=== PATIENT | male | born 1980 | race Caucasian/White ===

== ENCOUNTER 2019-03-31 17:21 | Inpatient (IN) | payer OTHER ==
[2019-03-31 18:17] VITALS: BMI 29.1
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
[2019-03-31] MEDS ORDERED: cloNIDine HCL 0.1 MG TABLET PO PRN (19:40)
[2019-03-31] MEDS ORDERED: METHADONE HCL 10 MG TABLET (FOR DETOX USE ONLY) PO ONE ×2 (19:41→23:00)
[2019-03-31] MEDS ORDERED: METHADONE (DETOX) 10 MG, METHADONE (DETOX) 5 MG PO ONE ×2 (19:42→23:00)
[2019-03-31] MEDS ORDERED: MENTHOL/PHENOL 1 EACH UD MM PRN (19:43)
[2019-03-31] MEDS ORDERED: MAGNESIUM HYDROX 2400MG/30ML ORAL SUSPENSION 30 ML CUP PO PRN (19:43)
[2019-03-31] MEDS ORDERED: ACETAMINOPHEN 325 MG TABLET (FP) PO PRN ×2 (19:43)
[2019-03-31] MEDS ORDERED: MAGNESIUM CITRATE 300 ML BOTTLE PO PRN (19:43)
[2019-03-31] MEDS ORDERED: BISMUTH SUBSALICYLATE 524 MG/30 ML UD PO PRN (19:43)
[2019-03-31] MEDS ORDERED: METHADONE HCL 5 MG TABLET (FOR DETOX USE ONLY) ONE ×2 (20:44→22:28)
[2019-03-31] MEDS ORDERED: METHADONE HCL 10 MG TABLET (FOR DETOX USE ONLY) ONE ×2 (20:45→22:29)
[2019-03-31] MEDS: METHOCARBAMOL 500 MG TABLET PO PRN (20:54)
[2019-03-31] MEDS: diazePAM 5 MG TABLET PO PRN (20:54)
[2019-03-31] MEDS: diazePAM 5 MG TABLET PO SCH (22:32)
[2019-03-31] MEDS: THIAMINE HCL 100 MG TABLET (FP) PO SCH (22:33)
[2019-03-31] MEDS: MELATONIN 5 MG TABLETS PO PRN (22:33)
[2019-04-01 00:46] LABS: PH,URINE 5.5 (5.0-8.0); URINE APPEARANCE CLEAR; URINE BILIRUBIN NEGATIVE (NEGATIVE); URINE COLOR YELLOW; URINE GLUCOSE (UA) NEGATIVE (NEGATIVE); URINE KETONE TRACE (NEGATIVE); URINE LEUK ESTERASE NEGATIVE (NEGATIVE); URINE NITRITE NEGATIVE (NEGATIVE); URINE PROTEIN NEGATIVE (NEGATIVE); URINE UROBILINOGEN 0.2 mg/dL (0.2-1.0)
[2019-04-01] MEDS: diazePAM 5 MG TABLET PO SCH ×3 (05:40→22:06)
[2019-04-01] MEDS ORDERED: METHADONE HCL 5 MG TABLET (FOR DETOX USE ONLY) ONE (08:47)
[2019-04-01] MEDS ORDERED: METHADONE HCL 10 MG TABLET (FOR DETOX USE ONLY) ONE (08:48)
[2019-04-01] MEDS ORDERED: METHADONE (DETOX) 20 MG, METHADONE (DETOX) 5 MG PO ONE (10:00)
[2019-04-01] MEDS ORDERED: METHADONE HCL 10 MG TABLET (FOR DETOX USE ONLY) PO ONE (10:00)
[2019-04-01] MEDS: PRENATAL VITAMINS W/ FOLIC ACID TABLET (FP) PO SCH (10:06)
[2019-04-01 10:21] LABS: ALBUMIN 3.9 g/dl (3.4-5.0); ALK PHOS 66 U/L (45-117); ANION GAP 6 MMOL/L (8-16); BILIRUBIN,TOTAL 0.6 mg/dL (0.2-1); BLOOD UREA NITROGEN 9 mg/dL (7-18); CALCIUM 9.1 mg/dL (8.5-10.1); CHLORIDE 104 mmol/L (98-107); CO2 30 mmol/L (21-32); CREATININE 0.9 mg/dL (0.55-1.3); GLUCOSE,RANDOM 89 mg/dL (74-106); POTASSIUM 3.8 mmol/L (3.5-5.1); SGOT/AST 10 U/L (15-37); SGPT/ALT 19 U/L (13-61); SODIUM 140 mmol/L (136-145)
[2019-04-01 10:26] LABS: HEMATOCRIT 38.9 % (35.4-49); HEMOGLOBIN 13.6 GM/dL (11.7-16.9); MCH 29.9 pg (25.7-33.7); MEAN CELL VOLUME 85.5 fl (80-96); MEAN PLT VOLUME 8.8 fl (7.5-11.1); PLATELET COUNT 352 K/MM3 (134-434); RBC 4.55 M/mm3 (4.00-5.60); RDW 12.9 % (11.9-15.9); WHITE BLOOD COUNT 8.4 K/mm3 (4.0-10.0)
[2019-04-01] MEDS ORDERED: ONDANSETRON *ODT* 4 MG TABLET SL PRN (10:34)
[2019-04-01] MEDS: diazePAM 5 MG TABLET PO PRN ×2 (10:54→15:44)
[2019-04-01] MEDS: METHOCARBAMOL 500 MG TABLET PO PRN ×2 (10:54→22:06)
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
--- NOTE | 2019-04-01 12:56 | EKG ---
Test Reason : Blood Pressure : / mmHG Vent. Rate : 080 BPM Atrial Rate : 080 BPM P-R Int : 162 ms QRS Dur : 104 ms QT Int : 384 ms P-R-T Axes : 028 087 038 degrees QTc Int : 442 ms NORMAL SINUS RHYTHM NONSPECIFIC T WAVE ABNORMALITY ABNORMAL ECG NO PREVIOUS ECGS AVAILABLE Confirmed by PATRICK WEBBER, ALEKSANDER ([id number]) on 04/01/2019 12:55:56 PM Referred By: LUNA Confirmed By:ALEKSANDER NGUYEN MD
--- NOTE | 2019-04-01 14:37 | PN ---
S CIWA - CIWA Score Nausea/Vomitin Muscle Tremors: None Anxiety: 4-Mod. Anxious/Guarded Agitation: 2 Paroxysmal Sweats: No Perspiration Orientation: 0-Oriented Tacttile Disturbances: 2-Mild Itch/Numbness/Burn Auditory Disturbances: 0-None Visual Disturbances: 3-Moderate Sensitivity Headache: 0-None Present CIWA-Ar Total Score: 14 BHS COWS - Scale Resting Pulse: 1= [place] 81-100 Sweatin= No chills or Flushing Restless Observation: 1= Difficult to Sit Still Pupil Size: 0= Normal to Room Light Bone or Joint Aches: 2= Severe Diffuse Aches Runny Nose/ Eye Tearin= None GI Upset > 30mins: 2= Nausea/Diarrhea Tremor Observation of Outstretched Hands: 0= None Yawning Observation: 1= 1-2x During Session Anxiety or Irritability: 2=Irritable/Anxious Goose Flesh Skin: 3=Piloerection COWS Score: 12 S Progress Note (SOAP) Subjective: Body Aches, Nausea, Interrupted Sleep, Fatigue, Diarrhea. Objective: PATIENT A & O X 3, OBSERVED AMBULATING ON UNIT UNASSISTED. IN NO ACUTE DISTRESS. 04/01/19 14:35 Vital Signs Temperature 98.4 F 04/01/19 13:06 Pulse Rate 100 H 04/01/19 13:06 Respiratory Rate 18 04/01/19 13:06 Blood Pressure 124/87 04/01/19 13:06 O2 Sat by Pulse Oximetry (%) Laboratory Tests 03/31/19 04/01/19 04/01/19 23:10 07:00 07:00 WBC 8.4 RBC 4.55 Hgb 13.6 Hct 38.9 MCV 85.5 MCH 29.9 MCHC 35.0 RDW 12.9 Plt Count 352 MPV 8.8 Sodium 140 Potassium 3.8 Chloride 104 Carbon Dioxide 30 Anion Gap 6 L BUN 9 Creatinine 0.9 Creat Clearance w eGFR 93.94 Random Glucose 89 Calcium 9.1 Total Bilirubin 0.6 AST 10 L ALT 19 Alkaline Phosphatase 66 Total Protein 7.0 Albumin 3.9 Urine Color Yellow Urine Appearance Clear Urine pH 5.5 Ur Specific [place] 1.022 Urine Protein Negative Urine Glucose (UA) Negative Urine Ketones Trace H Urine Blood Negative Urine Nitrite Negative Urine Bilirubin Negative Urine Urobilinogen 0.2 Ur Leukocyte Esterase Negative LABS NOTED. RPR RESULT PENDING. Assessment: 04/01/19 14:36 WITHDRAWAL SYMPTOMS. Plan: CONTINUE DETOX. INCREASE DAILY PO FLUID / WATER INTAKE. PRN PEPTO-BISMOL PO FOR DIARRHEA. PRN ZOFRAN SL FOR NAUSEA.
[2019-04-01] MEDS: THIAMINE HCL 100 MG TABLET (FP) PO SCH (22:06)
[2019-04-01] MEDS: MELATONIN 5 MG TABLETS PO PRN (22:06)
[2019-04-02] MEDS ORDERED: METHADONE HCL 10 MG TABLET (FOR DETOX USE ONLY) PO ONE (10:00)
[2019-04-02] MEDS: PRENATAL VITAMINS W/ FOLIC ACID TABLET (FP) PO SCH (10:11)
[2019-04-02] MEDS: diazePAM 5 MG TABLET PO SCH ×2 (10:11→22:01)
[2019-04-02] MEDS: METHOCARBAMOL 500 MG TABLET PO PRN ×2 (10:13→17:45)
--- NOTE | 2019-04-02 12:48 | PN ---
S CIWA - CIWA Score Nausea/Vomitin Muscle Tremors: 3 Anxiety: 3 Agitation: 0-Normal Activity Paroxysmal Sweats: No Perspiration Orientation: 0-Oriented Tacttile Disturbances: 2-Mild Itch/Numbness/Burn Auditory Disturbances: 0-None Visual Disturbances: 2-Mild Sensitivity Headache: 0-None Present CIWA-Ar Total Score: 13 BHS COWS - Scale Resting Pulse: 0= [place] 80 or Below Sweatin= Chills/Flushing Restless Observation: 1= Difficult to Sit Still Pupil Size: 0= Normal to Room Light Bone or Joint Aches: 2= Severe Diffuse Aches Runny Nose/ Eye Tearin= None GI Upset > 30mins: 2= Nausea/Diarrhea Tremor Observation of Outstretched Hands: 2= Slight Tremor Visible Yawning Observation: 1= 1-2x During Session Anxiety or Irritability: 2=Irritable/Anxious Goose Flesh Skin: 0=Smooth Skin COWS Score: 11 S Progress Note (SOAP) Subjective: Body Aches, Nausea, Tremors, Anxious. Objective: PATIENT A & O X 3, OBSERVED AMBULATING ON UNIT UNASSISTED. IN NO ACUTE DISTRESS. 04/02/19 12:46 Vital Signs Temperature 98.1 F 04/02/19 10:01 Pulse Rate 79 04/02/19 10:01 Respiratory Rate 18 04/02/19 10:01 Blood Pressure 145/79 04/02/19 10:01 O2 Sat by Pulse Oximetry (%) Laboratory Tests 03/31/19 04/01/19 04/01/19 23:10 07:00 07:00 WBC 8.4 RBC 4.55 Hgb 13.6 Hct 38.9 MCV 85.5 MCH 29.9 MCHC 35.0 RDW 12.9 Plt Count 352 MPV 8.8 Sodium 140 Potassium 3.8 Chloride 104 Carbon Dioxide 30 Anion Gap 6 L BUN 9 Creatinine 0.9 Creat Clearance w eGFR 93.94 Random Glucose 89 Calcium 9.1 Total Bilirubin 0.6 AST 10 L ALT 19 Alkaline Phosphatase 66 Total Protein 7.0 Albumin 3.9 Urine Color Yellow Urine Appearance Clear Urine pH 5.5 Ur Specific [place] 1.022 Urine Protein Negative Urine Glucose (UA) Negative Urine Ketones Trace H Urine Blood Negative Urine Nitrite Negative Urine Bilirubin Negative Urine Urobilinogen 0.2 Ur Leukocyte Esterase Negative RPR Titer 04/01/19 07:00 WBC RBC Hgb Hct MCV MCH MCHC RDW Plt Count MPV Sodium Potassium Chloride Carbon Dioxide Anion Gap BUN Creatinine Creat Clearance w eGFR Random Glucose Calcium Total Bilirubin AST ALT Alkaline Phosphatase Total Protein Albumin Urine Color Urine Appearance Urine pH Ur Specific [place] Urine Protein Urine Glucose (UA) Urine Ketones Urine Blood Urine Nitrite Urine Bilirubin Urine Urobilinogen Ur Leukocyte Esterase RPR Titer Nonreactive LABS NOTED. Assessment: 04/02/19 12:47 WITHDRAWAL SYMPTOMS. Plan: CONTINUE DETOX. PRN ZOFRAN SL FOR NAUSEA.
[2019-04-02] MEDS: diazePAM 5 MG TABLET PO PRN (17:45)
[2019-04-02] MEDS: THIAMINE HCL 100 MG TABLET (FP) PO SCH (22:01)
[2019-04-02] MEDS: MELATONIN 5 MG TABLETS PO PRN (22:01)
[2019-04-02] MEDS: IBUPROFEN 400 MG TABLET (FP) PO PRN (22:05)
[2019-04-02] MEDS: MAG HYDROX/AL HYDROX/SIMETH 30 ML UNIT-DOSE CUP PO PRN (23:19)
[2019-04-03] MEDS ORDERED: diazePAM 5 MG TABLET PO SCH (06:00)
[2019-04-03] MEDS ORDERED: METHADONE HCL 10 MG TABLET (FOR DETOX USE ONLY) PO ONE (10:00)
[2019-04-03] MEDS: METHOCARBAMOL 500 MG TABLET PO PRN ×2 (10:19→22:22)
[2019-04-03] MEDS: PRENATAL VITAMINS W/ FOLIC ACID TABLET (FP) PO SCH (10:19)
[2019-04-03] MEDS: diazePAM 5 MG TABLET PO PRN ×2 (10:20→14:52)
[2019-04-03] MEDS ORDERED: METHADONE HCL 5 MG TABLET (FOR DETOX USE ONLY) PO ONE (10:40)
[2019-04-03] MEDS: IBUPROFEN 400 MG TABLET (FP) PO PRN (10:47)
--- NOTE | 2019-04-03 17:20 | PN ---
S CIWA - CIWA Score Nausea/Vomitin Muscle Tremors: 2 Anxiety: 3 Agitation: 0-Normal Activity Paroxysmal Sweats: No Perspiration Orientation: 0-Oriented Tacttile Disturbances: 0-None Auditory Disturbances: 2-Mild Harshness/Frighten Visual Disturbances: 2-Mild Sensitivity Headache: 0-None Present CIWA-Ar Total Score: 11 BHS COWS - Scale Resting Pulse: 1= [place] 81-100 Sweatin= No chills or Flushing Restless Observation: 1= Difficult to Sit Still Pupil Size: 0= Normal to Room Light Bone or Joint Aches: 0= None Runny Nose/ Eye Tearin= None GI Upset > 30mins: 2= Nausea/Diarrhea Tremor Observation of Outstretched Hands: 2= Slight Tremor Visible Yawning Observation: 1= 1-2x During Session Anxiety or Irritability: 2=Irritable/Anxious Goose Flesh Skin: 0=Smooth Skin COWS Score: 9 BHS Progress Note (SOAP) Subjective: Body Aches, Nausea (Mild), Tremors, Anxious. Patient Reports Mild Improvement in Current Withdrawal / Detox Symptoms, but that the Symptoms still persist. Objective: PATIENT A & O X 3, OBSERVED AMBULATING ON UNIT UNASSISTED. IN NO ACUTE DISTRESS. 04/03/19 17:22 Vital Signs Temperature 98.1 F 04/03/19 14:21 Pulse Rate 85 04/03/19 14:21 Respiratory Rate 18 04/03/19 14:21 Blood Pressure 130/81 04/03/19 14:21 O2 Sat by Pulse Oximetry (%) Laboratory Tests 03/31/19 04/01/19 04/01/19 23:10 07:00 07:00 WBC 8.4 RBC 4.55 Hgb 13.6 Hct 38.9 MCV 85.5 MCH 29.9 MCHC 35.0 RDW 12.9 Plt Count 352 MPV 8.8 Sodium 140 Potassium 3.8 Chloride 104 Carbon Dioxide 30 Anion Gap 6 L BUN 9 Creatinine 0.9 Creat Clearance w eGFR 93.94 Random Glucose 89 Calcium 9.1 Total Bilirubin 0.6 AST 10 L ALT 19 Alkaline Phosphatase 66 Total Protein 7.0 Albumin 3.9 Urine Color Yellow Urine Appearance Clear Urine pH 5.5 Ur Specific [place] 1.022 Urine Protein Negative Urine Glucose (UA) Negative Urine Ketones Trace H Urine Blood Negative Urine Nitrite Negative Urine Bilirubin Negative Urine Urobilinogen 0.2 Ur Leukocyte Esterase Negative RPR Titer 04/01/19 07:00 WBC RBC Hgb Hct MCV MCH MCHC RDW Plt Count MPV Sodium Potassium Chloride Carbon Dioxide Anion Gap BUN Creatinine Creat Clearance w eGFR Random Glucose Calcium Total Bilirubin AST ALT Alkaline Phosphatase Total Protein Albumin Urine Color Urine Appearance Urine pH Ur Specific [place] Urine Protein Urine Glucose (UA) Urine Ketones Urine Blood Urine Nitrite Urine Bilirubin Urine Urobilinogen Ur Leukocyte Esterase RPR Titer Nonreactive LABS NOTED. Assessment: 04/03/19 17:22 WITHDRAWAL SYMPTOMS. Plan: CONTINUE DETOX. PRN ZOFRAN SL FOR NAUSEA.
[2019-04-03] MEDS: THIAMINE HCL 100 MG TABLET (FP) PO SCH (22:11)
[2019-04-03] MEDS: MELATONIN 5 MG TABLETS PO PRN (22:14)
[2019-04-03] MEDS: hydrOXYzine PAMOATE 50 MG CAPSULE (FP) PO PRN (22:14)
[2019-04-03] MEDS: MAG HYDROX/AL HYDROX/SIMETH 30 ML UNIT-DOSE CUP PO PRN (23:18)
[2019-04-04] MEDS ORDERED: METHADONE HCL 5 MG TABLET (FOR DETOX USE ONLY) PO ONE (06:00)
[2019-04-04] MEDS: PRENATAL VITAMINS W/ FOLIC ACID TABLET (FP) PO SCH (09:57)
[2019-04-04] MEDS ORDERED: METHADONE HCL 10 MG TABLET PO ONE (10:22)
[2019-04-04] MEDS ORDERED: METHADONE HCL 10 MG TABLET (FOR DETOX USE ONLY) PO ONE (10:45)
[2019-04-04] MEDS: METHOCARBAMOL 500 MG TABLET PO PRN ×2 (10:45→22:11)
--- NOTE | 2019-04-04 12:48 | PN ---
BHS COWS - Scale Resting Pulse: 0= [place] 80 or Below Sweatin= Chills/Flushing Restless Observation: 1= Difficult to Sit Still Pupil Size: 0= Normal to Room Light Bone or Joint Aches: 2= Severe Diffuse Aches Runny Nose/ Eye Tearin= None GI Upset > 30mins: 0= None Tremor Observation of Outstretched Hands: 2= Slight Tremor Visible Yawning Observation: 1= 1-2x During Session Anxiety or Irritability: 1=Feels Anxious/Irritable Goose Flesh Skin: 0=Smooth Skin COWS Score: 8 BHS Progress Note (SOAP) Subjective: c/o sweats, shakes, and muscle pain Objective: 04/04/19 12:47 Vital Signs 04/04/19 04/04/19 06:05 09:50 Temperature 97.7 F 98.9 F Pulse Rate 73 77 Respiratory 18 18 Rate Blood Pressure 109/64 118/67 Vital signs noted. Assessment: AOX3, in no respiratory distress full ROM withdrawal symptoms persists. Plan: Continue detox increase fluids
[2019-04-04] MEDS: THIAMINE HCL 100 MG TABLET (FP) PO SCH (22:11)
[2019-04-04] MEDS: hydrOXYzine PAMOATE 50 MG CAPSULE (FP) PO PRN (22:11)
[2019-04-04] MEDS: MELATONIN 5 MG TABLETS PO PRN (22:11)
[2019-04-04 22:21] VITALS: BP 136/75; PULSE 97; TEMP 99.5
[2019-04-05] MEDS ORDERED: METHADONE HCL 5 MG TABLET (FOR DETOX USE ONLY) PO ONE (06:00)
== END 2019-04-04 23:59 | disposition other institution (70) | DRG 773 ==
LOC: YASAS 17:21 → Y6N 20:26
PROVIDERS: ADMIT Surgery; ATTEND Surgery
PROC: HZ2ZZZZ Detoxification Services for Substance Abuse Treatment (ICD-10-PCS; principal; 2019-03-31)
DX: F11.23 Opioid dependence with withdrawal (principal); F13.230 Sedative, hypnotic or anxiolytic dependence with withdrawal, uncomplicated; F19.24 Other psychoactive substance dependence with psychoactive substance-induced mood disorder; F19.282 Other psychoactive substance dependence with psychoactive substance-induced sleep disorder; E78.5 Hyperlipidemia, unspecified; Z86.69 Personal history of other diseases of the nervous system and sense organs; Z94.5 Skin transplant status
CPT/HCPCS: 36415; 80053; 81003; 85027; 86593; 93005; 93010; Q0162

== ENCOUNTER 2019-04-04 23:56 | Inpatient (IN) | payer OTHER ==
[2019-04-05] MEDS ORDERED: P-EPHED 60MG/TRIPROLIDI 2.5MG TABLET PO PRN (00:40)
[2019-04-05] MEDS ORDERED: MAGNESIUM CITRATE 300 ML BOTTLE PO PRN (00:40)
[2019-04-05] MEDS ORDERED: MENTHOL/PHENOL 1 EACH UD MM PRN (00:40)
[2019-04-05] MEDS ORDERED: LOPERAMIDE HCL 2 MG CAPSULE PO PRN (00:40)
[2019-04-05] MEDS ORDERED: guaiFENesin 200 MG/10 ML 10 ML UNIT-DOSE CUPS PO PRN (00:40)
[2019-04-05] MEDS ORDERED: MAGNESIUM HYDROX 2400MG/30ML ORAL SUSPENSION 30 ML CUP PO PRN (00:40)
[2019-04-05] MEDS ORDERED: NICOTINE POLACRILEX 2 MG GUM BUC PRN (00:40)
[2019-04-05] MEDS ORDERED: MAG HYDROX/AL HYDROX/SIMETH 30 ML UNIT-DOSE CUP PO PRN (00:40)
--- NOTE | 2019-04-05 00:40 | HP ---
JUNI WEBBER Rehab Assess/Revision - Admission History Admitted to Rehab from: [facility] Date of Admission to Rehab: 04/05/2019 - Findings Detox History & Physical reviewed: Yes Concur with findings: Yes Comments/Additional Findings: S/P DETOX FOR BENZO AND OPI DEP. Inpatient Rehab Admission - Rehab Decision to Admit Inpatient rehab admission?: Yes - Initial Determination Are CD services needed?: Yes Free of communicable disease: Yes Not in need of hospitalization: Yes - Rehab Admission Criteria Previous failed treatment: Yes Poor recovery environment: Yes Comorbidities: Yes Lacks judgement: No Patient is meeting Inpatient Rehab admission criteria:: Yes
[2019-04-05 00:58] VITALS: BMI 29.1
[2019-04-05] MEDS ORDERED: NICOTINE 14 MG/24 HOURS TOPICAL PATCH TD SCH (10:00)
[2019-04-05] MEDS: PRENATAL VITAMINS W/ FOLIC ACID TABLET (FP) PO SCH (11:50)
[2019-04-05] MEDS: hydrOXYzine PAMOATE 25 MG CAPSULE (FP) PO PRN (14:17)
[2019-04-05] MEDS: IBUPROFEN 400 MG TABLET (FP) PO PRN ×2 (14:18→21:38)
[2019-04-05] MEDS: THIAMINE HCL 100 MG TABLET (FP) PO SCH (21:36)
[2019-04-05] MEDS: MELATONIN 5 MG TABLETS PO PRN (21:37)
[2019-04-06] MEDS: hydrOXYzine PAMOATE 25 MG CAPSULE (FP) PO PRN ×2 (06:33→10:40)
[2019-04-06] MEDS: IBUPROFEN 400 MG TABLET (FP) PO PRN ×2 (06:33→21:26)
[2019-04-06] MEDS: PRENATAL VITAMINS W/ FOLIC ACID TABLET (FP) PO SCH (10:16)
[2019-04-06] MEDS: THIAMINE HCL 100 MG TABLET (FP) PO SCH (21:25)
[2019-04-06] MEDS: MELATONIN 5 MG TABLETS PO PRN (21:25)
[2019-04-07] MEDS: IBUPROFEN 400 MG TABLET (FP) PO PRN (07:01)
[2019-04-07] MEDS: hydrOXYzine PAMOATE 25 MG CAPSULE (FP) PO PRN ×2 (07:01→21:22)
[2019-04-07] MEDS: PRENATAL VITAMINS W/ FOLIC ACID TABLET (FP) PO SCH (10:28)
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
[2019-04-07] MEDS ORDERED: BISACODYL 5 MG TABLET.DR (FP) PO ONE (18:30)
[2019-04-07] MEDS: ACETAMINOPHEN 325 MG TABLET (FP) PO PRN (20:31)
[2019-04-07] MEDS: THIAMINE HCL 100 MG TABLET (FP) PO SCH (21:22)
[2019-04-07] MEDS: MELATONIN 5 MG TABLETS PO PRN (21:22)
[2019-04-08] MEDS: ACETAMINOPHEN 325 MG TABLET (FP) PO PRN ×2 (06:22→15:38)
[2019-04-08] MEDS: PRENATAL VITAMINS W/ FOLIC ACID TABLET (FP) PO SCH (09:52)
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
[2019-04-08] MEDS ORDERED: LORazepam 2 MG/ML SDV VIAL ONE (15:53)
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
[2019-04-08] MEDS: THIAMINE HCL 100 MG TABLET (FP) PO SCH (21:34)
[2019-04-09] MEDS: MELATONIN 5 MG TABLETS PO PRN (00:04)
[2019-04-09] MEDS: ACETAMINOPHEN 325 MG TABLET (FP) PO PRN (06:15)
[2019-04-09] MEDS: PRENATAL VITAMINS W/ FOLIC ACID TABLET (FP) PO SCH (10:19)
[2019-04-09] MEDS ORDERED: METHOCARBAMOL 500 MG TABLET PO PRN (10:25)
[2019-04-09] MEDS ORDERED: IBUPROFEN 400 MG TABLET (FP) PO PRN (10:26)
[2019-04-09] MEDS ORDERED: cloNIDine HCL 0.1 MG TABLET PO ONE ×2 (10:29→12:43)
--- NOTE | 2019-04-09 10:58 | PN ---
[facility] Progress Note (SOAP) Subjective: PT RETURNED FROM THE ER LAST NIGHT. PT C/O JOINT/MUSCLE ACHES/PAIN AND SPASMS "DUE TO SHAKING OF YESTERDAY AND WITHDRAWAL SX. I FEEL SORE ". REPORTS TYLENOL DID NOT HELP "WHEN THEY GAVE IT TO ME". PT REPORTS THE LAST THING HE REMEMBERS BEFORE SYNCOPAL EPISODE WAS HIS HAND REACHING OUT TO THE BATHROOM DOOR. PT REPORTS CHRONIC SLEEPING DISORDER AND HAS EXPERIENCED SIMILAR EPISODES 4 TIMES. PT REPORTS HAS A LOT IN HIS MIND AND THINKS TOO MUCH SO DOES NOT SLEEP WELL FOR DAYS IN A ROW. PT REPORTS HE HAS NO CURRENT PCP/MENTAL HEALTH PROVIDER ALTHOUGH HAD ONE IN THE PAST AND WILL GET BACK TO ONE AFTER LEAVING HERE. DISCUSSED WITH PT THE NEED TO BE CONNECTED TO A PCP FOR MEDICAL MANAGEMENT WHEN NEEDED. Objective: 04/09/19 11:01 Vital Signs 04/09/19 04/09/19 04/09/19 03:30 07:01 08:30 Temperature 97.9 F 97.8 F Pulse Rate 104 H 95 H Respiratory 18 18 18 Rate Blood Pressure 141/84 126/72 Laboratory Tests 04/08/19 16:07 POC Glucometer 135 FASTING BGM DAY 1 ABOVE. HEAD:NORMOCEPHALIC,NO PAIN,SWELLING,REDNESS OR BRUISES. KARL,EOMI SKIN:WNL-NO BRUISE, SWELLING OR RASH. RIGHT KNEE WITH OLD HEALED SCAR. Assessment: 04/09/19 11:01 S/P ER EVALUATION FOR SYNCOPAL EPISODE WITHDRAWAL SX CHRONIC INSOMNIA Plan: INCREASE PO FLUIDS ROBAXIN 500 MG PO Q8H PRN FOR MUSCLE SPASMS MOTRIN 400 MG PO Q6H PRN FOR PAIN INCREASE VISTARIL 50 MG PO Q4H PRN FOR ANXIETY/AGITATION PSYCH F/U FOR INSOMNIA MANAGEMENT PT WILL FOLLOW UP WITH A PRIMARY CARE PROVIDER/MENTAL HEALTH SERVICES AFTER DISCHARGE FROM REHAB.
[2019-04-09] MEDS ORDERED: hydrOXYzine PAMOATE 50 MG CAPSULE (FP) PO PRN (11:04)
[2019-04-09] MEDS ORDERED: LORazepam 2 MG/ML SDV VIAL IM ONE ×2 (12:52→12:53)
[2019-04-09 13:07] VITALS: BP 130/81; PULSE 105; TEMP 98
--- NOTE | 2019-04-09 13:28 | PN ---
[facility] Progress Note Note: 12:44 P.M NURSE SUDHA CALLED [facility] FORMER TO SEE PT SITTING ON THE CHAIR AT THE NURSING STATION WHO BEGAN TO SHAKE WITH WEAKNESS AND SYNCOPAL EPISODE. NURSING REPORTS PT WAS LOWERED TO THE FLOOR PER PROTOCOL. [facility] FORMER FOUND PATIENT ON THE FLOOR AND NURSING STAFF WITH PATIENT SOON AFTER CALL. PT WAS SEEN HAVING RAPID GENERALIZED BODY JERKING, MUSCLE/JOINT/FINGER CONTRACTIONS AND MOANING. PT HAD EYES CLOSED TIGHT- UNABLE TO ASSESS PUPILS FULLY BUT PT HAD OCULAR MOVEMENTS OF EYEBALLS. PT WAS EVALUATED AT THE COUNTS INCLUDE 234 BEDS AT THE [facility] ER YESTERDAY WITH SIMILAR EPISODE. PT REPORTED EARLIER THIS MORNING THAT HE'S HAD ABOUT 4 PREVIOUS SIMILAR EPISODES. PT IS NEW TO [facility]. Vital Signs 04/09/19 04/09/19 04/09/19 07:01 08:30 12:30 Temperature 97.9 F 97.8 F 98 F Pulse Rate 104 H 95 H 105 H Respiratory 18 18 17 Rate Blood Pressure 141/84 126/72 130/81 BLOOD SUGAR 166 MG/DL O2 4L NC PLAN:RAPID RESPONSE CALLED AND STAFF RESPONDED. ATIVAN 2MG I.M X 2 GIVEN AT 12:52 P.M AND 12:53 P.M TRANSFER PT VIA AMBULANCE TO [facility] FOR FURTHER EVALUATION AND TREATMENT. SPOKE TO DR. HANNAH AT THE ED.
[2019-04-09] MEDS ORDERED: cloNIDine HCL 0.1 MG TABLET PO SCH (22:00)
[2019-04-10] MEDS: THIAMINE HCL 100 MG TABLET (FP) PO SCH (00:39)
== END 2019-04-09 23:00 | disposition short-term general hospital (02) | DRG 772 ==
LOC: YASAS 23:56 → Y5N 04-05 00:04
PROVIDERS: ADMIT Neuromusculoskeletal Medicine & OMM; ATTEND Neuromusculoskeletal Medicine & OMM
PROC: HZ42ZZZ Group Counseling for Substance Abuse Treatment, Cognitive-Behavioral (ICD-10-PCS; principal; 2019-04-05)
DX: F11.20 Opioid dependence, uncomplicated (principal); F13.20 Sedative, hypnotic or anxiolytic dependence, uncomplicated; F19.282 Other psychoactive substance dependence with psychoactive substance-induced sleep disorder; R56.9 Unspecified convulsions; R55 Syncope and collapse; R52 Pain, unspecified; G47.00 Insomnia, unspecified; E78.5 Hyperlipidemia, unspecified; K92.1 Melena; K59.00 Constipation, unspecified
CPT/HCPCS: 82962; 87086

== ENCOUNTER 2019-04-08 16:46 | Emergency (ER) | payer BC, OTHER ==
[2019-04-08 16:57] VITALS: TEMP 99.2; BMI 31.3
--- NOTE | 2019-04-08 19:50 | PDOC ---
History of Present Illness - General Chief Complaint: Alcohol intoxication Stated Complaint: SEIZURE/Withdrawal Symptom Time Seen by Provider: 04/08/19 17:36 - History of Present Illness Initial Comments: 04/08/19 20:41 The patient is a 38 year old male with a history of HTN, heroin abuse, xanax abuse who presents from detox for evaluation of near-syncope. The patient reports a history of right flank pain for many months and noted that the pain was worse today. He notes that he had received tylenol for the patient and after was getting up from bed to go to the bathroom when he experienced a witnessed near-syncopal episode. He denies head trauma and states the he remembers the event. Per [facility], the patient was shaking at the time. The patient notes that he knows he was shaking. He otherwise denies headache, fevers, chills, SOB, chest pain, nausea, vomiting, abdominal pain, or changes with urination or bowel movements. Past History - Past Medical History Allergies/Adverse Reactions: Allergies Allergy/AdvReac Type Severity Reaction Status Date / Time No Known Allergies Allergy Verified 03/31/19 18:12 Home Medications: Ambulatory Orders Acetaminophen [Arthritis Pain Relief] 650 mg PO Q4H PRN 04/08/19 Eucalyptus/Menthol [Cough Drops] 1 each MM Q4H PRN 04/08/19 Guaifenesin [Robitussin] 10 ml PO Q6H PRN 04/08/19 Mag Hydrox/Al Hydrox/Simeth [Mylanta Oral Suspension -] 30 ml PO DAILY PRN 04/08 Magnesium Citrate [Citroma -] 300 ml PO Q48H PRN 04/08/19 Magnesium Hydrox 2400MG/30Ml [Milk of Magnesia -] 30 ml PO DAILY PRN 04/08/19 Melatonin 5 mg PO HS PRN 04/08/19 P-Ephed 60Mg/Triprolidi 2.5MG [Actifed -] 1 combo PO TID PRN 04/08/19 No122/Iron/Folic Acid [ Multi Tablet] 1 each PO DAILY 04/08/19 Thiamine HCl [B-1] 100 mg PO HS 04/08/19 hydrOXYzine PAMOATE [Vistaril -] 25 mg PO Q4H PRN 04/08/19 Anemia: No Asthma: No Cancer: No Cardiac Disorders: No CVA: No COPD: No CHF: No Dementia: No Diabetes: No GI Disorders: No Disorders: No HTN: Yes Hypercholesterolemia: No Kidney Stones: No Liver Disease: No Seizures: Yes (Xanax withdrawal seizure one year ago ) Thyroid Disease: No - Surgical History Abdominal Surgery: No Appendectomy: No Cardiac Surgery: No Cholecystectomy: No Lung Surgery: No Neurologic Surgery: No Orthopedic Surgery: No - Reproductive History Testicular Surgery: No - Suicide/Smoking/Psychosocial Hx Smoking History: Never smoked Have you smoked in the past 12 months: No Number of Cigarettes Smoked Daily: 0 Information on smoking cessation initiated: No 'Breaking Loose' booklet given: 03/31/19 Hx Alcohol Use: No Drug/Substance Use Hx: Yes (heroin xanax) Substance Use Type: Heroin, Opiates, Tranquilizers Hx Substance Use Treatment: No Review of Systems - Review of Systems Comments:: 04/08/19 20:44 Constitutional: No fevers, chills, fatigue, malaise HEENT: No Rhinorrhea, nasal congestion, visual changes Cardiovascular: Syncope No chest pain, palpitations, lightheadedness Respiratory: No Cough, SOB, Hemoptysis, Gastrointestinal: No Abdominal pain, Nausea, Vomiting, Constipation, Diarrhea, Melena Genitourinary: No Dysuria, Frequency, Urgency, Hesitancy, Hematuria, Flank pain Musculoskeletal: No Myalgia, arthralgia Skin: No rashes, itching, bruising, pallor Neurologic: Tremors No Headache, Dizziness, Numbness, Weakness, or Tingling Psychiatric: No Hallucinations. No SI or HI *Physical Exam - Vital Signs Last Vital Signs Temp Pulse Resp BP Pulse Ox 99.2 F 133 H 20 138/79 97 04/08/19 16:56 04/08/19 16:56 04/08/19 16:56 04/08/19 16:56 04/08/19 16:56 - Physical Exam Comments: 04/08/19 20:45 General Appearance: Nourished. No Apparent Distress HEENT: EOMI, CHELSEY. No Pharyngeal Erythema, Tonsillar Exudate, Tonsillar Erythema Neck: No Cervical Lymphadenopathy Respiratory/Chest: Lungs Clear, Normal Breath Sounds. No Crackles, Rales, Rhonchi, Wheezing Cardiovascular: Regular Rhythm, Tachycardic Rate. No Murmur, Gallops, Rubs Gastrointestinal/Abdominal: Normal Bowel Sounds, Soft. 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 Tremulous on Exam Heart Score/ECG Review #1 ECG reviewed & interpreted by me at: 20:47 04/08/19 20:47 Sinus Tachycardia No Acute ST Changes HR 109 QRS 90 QTc 463 ED Treatment Course - LABORATORY CBC & Chemistry Diagram: 04/08/19 20:15 04/08/19 20:15 Medical Decision Making - Medical Decision Making 04/08/19 20:48 The patient is a 38 year old male with a history of HTN, heroin abuse, xanax abuse who presents from detox for evaluation of near-syncope. Differential includes but is not limited to: ACS, Dehydration, Infectious, Metabolic Derangement. Given the patient's history and physical exam, we will obtain a cbc, cmp, troponin, ekg, chest plain film to evaluate further. We will treat with clonodine 0.1mg here in the Ed and continue to monitor and reassess. 04/08/19 22:01 CBC demonstrates a wbc to 16 which is non concerning at this time given the lack of associated symptoms. CMP, troponin are unremarkable. Chest plain film is unremarkable. The patient's vitals have improved and he appears clinically well on exam. We are comfortable discharging the patient back to [facility] [place] in stable condition. Patient and family made aware of impression and plan, return precautions discussed including but not limited to worsening pain or symptoms, fevers, or signs of infection, chest pain, respiratory distress, inability to tolerate oral intake, dehydration, syncope, or neurologic changes. The patient is to follow up with PMD as recommended within 1 week, follow up information provided and the patient will call for an appointment. The patient is to take medications as instructed for duration of time and continue with supportive care , avoid triggers and precipitants. Patient is safe for outpatient follow-up. *DC/Admit/Observation/Transfer Diagnosis at time of Disposition: Near syncope - Discharge Dispostion Disposition: HOME Condition at time of disposition: Stable - Referrals - Patient Instructions Printed Discharge Instructions: DI for Syncope in Adults (Fainting) Additional Instructions: 1) Please follow-up with your primary care doctor in the next 2-3 days. Please call tomorrow to schedule a follow up appointment. If you cannot follow up with your doctor within 1 week please return to the Emergency Department for any urgent issues. 2) Your laboratory / imaging results were normal here in the ER. 3) If you have any worsening of symptoms or any other concerns please return to the ER immediately. Return if worsening symptoms including fevers, headache, vomiting, visual or hearing disturbances, abdominal pain, chest pain, shortness of breath, syncope, dehydration, inability to take things by mouth/vomiting, altered mental status, or worsening concerning symptoms. 4) Please continue taking your home medications as directed. - Post Discharge Activity
[2019-04-08] MEDS ORDERED: cloNIDine HCL 0.1 MG TABLET PO ONE (20:14)
[2019-04-08] MEDS ORDERED: cloNIDine HCL 0.1 MG TABLET ONE (20:27)
[2019-04-08 20:43] LABS: BASO % 0.4 % (0-2.0); EOS % 1.5 % (0-4.5); HEMATOCRIT 42.6 % (35.4-49); HEMOGLOBIN 14.6 GM/dL (11.7-16.9); MCH 29.2 pg (25.7-33.7); MCHC 34.2 g/dl (32.0-35.9); MEAN CELL VOLUME 85.1 fl (80-96); MEAN PLT VOLUME 8.8 fl (7.5-11.1); MONO % 6.3 % (3.8-10.2); NEUT % 65.8 % (42.8-82.8); PLATELET COUNT 356 K/MM3 (134-434); RDW 12.9 % (11.9-15.9); WHITE BLOOD COUNT 16.8 K/mm3 (4.0-10.0)
[2019-04-08 21:02] LABS: ALBUMIN 4.2 g/dl (3.4-5.0); BILIRUBIN,TOTAL 0.4 mg/dL (0.2-1); CALCIUM 9.3 mg/dL (8.5-10.1); POTASSIUM 3.7 mmol/L (3.5-5.1)
--- NOTE | 2019-04-08 21:54 | PDOC ---
Documentation entered by Moe Will SCRIBE, acting as scribe for Stephanie Gómez DO. Stephanie Gómez DO: This documentation has been prepared by the Nicolette doll Matthew, SCRIBE, under my direction and personally reviewed by me in its entirety. I confirm that the documentation accurately reflects all work, treatment, procedures, and medical decision making performed by me. Attending Attestation - Resident Resident Name: Candelario Powell - ED Attending Attestation I have performed the following: I have examined & evaluated the patient, The case was reviewed & discussed with the resident, I agree w/resident's findings & plan - HPI HPI: 04/08/19 20:30 Patient is a 38 year old male with a significant past medical history of depresion, who presents to the ED with complaints of syncopal episode occurred just prior to ED arrival. Patient reports experiencing chronic right flank pain , that he states became more intense this afternoon prompting him to take tylenol. He reports getting up to use the bathroom shortly afterwards and experienced a syncopal episode. As per NH staff patient was found on the floor shaking, prompting them to send the patient into the ED for further evaluation of possible seizure. Denies chest pain, Sob. Denies nausea, vomiting. Denies fevers, chills. Denies constipation, diarrhea. Denies dysuria, hematuria. Denies contact with sick individuals, out of state travelling. Denies any other symptoms. Allergies: NKDA. Social history: From [facility]. Current heroin, and xanax abuse. No alcohol use. No smoking. Surgical history: None PMD: None - Physicial Exam PE: 04/08/19 20:30 Agree with residents Physical Exam. - Medical Decision Making 04/08/19 21:51 28-year-old male currently in detox for Xanax and heroin dependence sent for evaluation after an episode of weakness and near syncope witnessed by staffassociated trauma Patient arrives somewhat tremulous with tachycardia with a rate in the 130s EKG shows a sinus tachycardia Patient given clonidine 0.1 mg in the emergency department On reevaluation at 9:45 PM he is awake alert no acute distress, he has no resting tremor and states he feels ready to go back to detox Heart rate has decreased to 109 Patient has no shortness of breath or chest pain, there is no history of leg swelling or any other clinical indicators of pulmonary embolism Oxygen saturation 97% on room air Plan for discharge back to the rehabilitation facility
[2019-04-08 21:59] VITALS: BP 135/77; PULSE 105
--- NOTE | 2019-04-09 17:17 | EKG ---
Test Reason : Blood Pressure : / mmHG Vent. Rate : 109 BPM Atrial Rate : 109 BPM P-R Int : 160 ms QRS Dur : 090 ms QT Int : 344 ms P-R-T Axes : 032 082 029 degrees QTc Int : 463 ms SINUS TACHYCARDIA OTHERWISE NORMAL ECG WHEN COMPARED WITH ECG OF 31-MAR-2019 20:55, NO SIGNIFICANT CHANGE WAS FOUND Confirmed by TIARA PEREA MD ([id number]) on 04/09/2019 5:17:14 PM Referred By: Confirmed By:TIARA PEREA MD
== END 2019-04-08 23:00 | disposition home or self-care (01) ==
LOC: JER 16:46
DX: R55 Syncope and collapse (principal); I10 Essential (primary) hypertension; F11.10 Opioid abuse, uncomplicated; F13.10 Sedative, hypnotic or anxiolytic abuse, uncomplicated
CPT/HCPCS: 36415; 71045-TC-FY; 80053; 82550; 82553; 84484; 85025; 93005; 93010; 99284-25; J0735

== ENCOUNTER 2019-04-09 13:36 | Inpatient (IN) | payer BC, OTHER ==
[2019-04-09] MEDS ORDERED: chlordiazePOXIDE HCL 25 MG CAPSULE PO ONE (15:04)
--- NOTE | 2019-04-09 15:19 | PDOC ---
History of Present Illness - General Chief Complaint: Seizure Stated Complaint: Seizure Time Seen by Provider: 04/09/19 14:36 - History of Present Illness Initial Comments: Claus Norwood is a 38yo man with a history of substance abuse (heroin , Xanax) and HTN who presents from [facility] rehab for the 2nd time in 24hrs with an apparent seizure. He reports that he was feeling shaky and weak this morning; he does not remember the actual seizure. He says that he believes the same thing happened yesterday, and he had similar episodes last year in the [place]. Per chart review. Mr Cohen was sent to the ED for evaluation of syncope/pre- syncope yesterday. Workup was notable only for WBC to 16 and he was sent back to rehab. Despite calling the episode yesterday syncope, notes from rehab indicate that the episode today with apparent tonic-clonic activity was the same as what was witnessed yesterday. Also per chart review, it does not appear that Mr Cohen was being treated for his history of xanax abuse; he was not on any benzo taper or other medications over the past few days. During the event today, he was lowered to the ground and did not sustain any injury. Both episodes were witnessed by rehab staff. Past History - Past Medical History Allergies/Adverse Reactions: Allergies Allergy/AdvReac Type Severity Reaction Status Date / Time No Known Allergies Allergy Verified 04/09/19 14:05 Home Medications: Ambulatory Orders NK [No Known Home Medication] 04/09/19 Anemia: No Asthma: No Cancer: No Cardiac Disorders: No CVA: No COPD: No CHF: No Dementia: No Diabetes: No GI Disorders: No Disorders: No HTN: Yes Hypercholesterolemia: No Kidney Stones: No Liver Disease: No Seizures: Yes (Xanax withdrawal seizure one year ago ) Thyroid Disease: No - Surgical History Abdominal Surgery: No Appendectomy: No Cardiac Surgery: No Cholecystectomy: No Lung Surgery: No Neurologic Surgery: No Orthopedic Surgery: No - Reproductive History Testicular Surgery: No - Suicide/Smoking/Psychosocial Hx Smoking History: Smoker current status UNK Have you smoked in the past 12 months: No Number of Cigarettes Smoked Daily: 0 'Breaking Loose' booklet given: 03/31/19 Hx Alcohol Use: No Drug/Substance Use Hx: Yes (heroin xanax) Substance Use Type: Heroin, Opiates, Tranquilizers Hx Substance Use Treatment: No Review of Systems - Review of Systems Comments:: General: No fevers, no chills, no weight or appetite change, no malaise HEENT: No changes in vision, no changes in hearing, no congestion, no sore throat CV: No chest pain, no palpitations, no LE edema Pulm: No SOB, no cough, no wheezing GI: No nausea or vomiting, no change in bowel habits, no melena : No frequency, no urgency, no dysuria Musc: +chronic back pain, no joint swelling, no recent injury Skin: No rash, no lesions, no erythema Endo: No excessive thirst, no heat/cold intolerance Heme: No unusual bruising or bleeding, no swollen glands Neuro: +seizures, +tremors Vasc: No claudication Psych: No recent change in mood, no SI or HI *Physical Exam - Vital Signs Last Vital Signs Temp Pulse Resp BP Pulse Ox 98.5 F 109 H 16 108/66 99 04/09/19 14:07 04/09/19 14:07 04/09/19 14:07 04/09/19 14:07 04/09/19 14:07 - Physical Exam Comments: General: Diaphoretic HEENT: PERRL, EOMI, MMM, voice normal. +Tongue fasciculations. Cards: Tachycardic, no murmur appreciated Pulm: Comfortable on room air, clear to auscultation bilaterally Abd: Soft, nontender, nondistended Back: TTP in lumbar paraspinal muscles, R>L Ext: Atraumatic. No LE edema. ROM intact. Vasc: Extremities WWP. Skin: Normal color, no rashes or lesions Neuro: A&Ox3, CN grossly intact, normal speech, motor/sensory grossly intact and symmetric. +tremors in b/l hands, +tongue fasciculations Psych: Mood appropriate to situation ED Treatment Course - LABORATORY CBC & Chemistry Diagram: 04/09/19 15:22 04/09/19 15:22 Medical Decision Making - Medical Decision Making 04/09/19 15:14 Claus Norwood is a 38yo man who presents from [facility] rehab for the 2nd time in 24hrs with an apparent seizure. - Per chart review, had similar episode yesterday evening though he was transferred to the ED for presyncope; notes today report the same symptoms and shaking - Clinically appears to be in withdrawal currently. Tachycardic in low 100's, diaphoretic, tremulous, tongue fasciculations - Will repeat CBC, chemistry. Completed at 8pm yesterday, will evaluate for new abnormalities. Yesterday were remarkable for WBC 16, c/w recent seizure - UA, Utox, alcohol level - 2mg IV ativan, 50mg PO librium for suspected benzo withdrawal. Does not appear to have been on benzo taper at [facility] despite history of Xanax abuse - Will likely admit for obs given multiple seizures, sent from rehab twice in one day 04/09/19 16:52 - CBC, chemistry without concerning abnormalities. Alcohol negative - UA and urine tox pending - Spoke to [facility] (Dr Zelaya). Recommending obs admission rather than return to detox given multiple seizures - [employer] sent for admission 04/09/19 17:20 - Spoke to Dr Conklin. Requesting CT head, now ordered. Will admit to tele obs for inpatient management. Discussed with Dr Rahman. Rebecca Urbano PGY1 *DC/Admit/Observation/Transfer Diagnosis at time of Disposition: Seizure - Discharge Dispostion Decision to Admit order: Yes - Referrals - Patient Instructions - Post Discharge Activity
[2019-04-09] MEDS ORDERED: chlordiazePOXIDE HCL 25 MG CAPSULE ONE (15:20)
[2019-04-09] MEDS ORDERED: LORazepam 2 MG/ML SDV VIAL ONE ×5 (15:43→23:58)
[2019-04-09 15:52] LABS: BASO % 0.4 % (0-2.0); EOS % 1.6 % (0-4.5); HEMATOCRIT 41.8 % (35.4-49); LYMPH % 27.5 % (8-40); MCH 28.5 pg (25.7-33.7); MCHC 33.5 g/dl (32.0-35.9); MEAN CELL VOLUME 85.1 fl (80-96); MEAN PLT VOLUME 8.9 fl (7.5-11.1); NEUT % 63.5 % (42.8-82.8); PLATELET COUNT 325 K/MM3 (134-434); RBC 4.91 M/mm3 (4.00-5.60); RDW 13.1 % (11.9-15.9); WHITE BLOOD COUNT 11.4 K/mm3 (4.0-10.0)
[2019-04-09 16:28] LABS: ALK PHOS 71 U/L (45-117); ANION GAP 6 MMOL/L (8-16); BILIRUBIN,TOTAL 0.7 mg/dL (0.2-1); BLOOD UREA NITROGEN 22 mg/dL (7-18); CALCIUM 9.1 mg/dL (8.5-10.1); CHLORIDE 106 mmol/L (98-107); CO2 26 mmol/L (21-32); CREATININE 0.9 mg/dL (0.55-1.3); GLUCOSE,RANDOM 137 mg/dL (74-106); MAGNESIUM 2.3 mg/dL (1.8-2.4); PHOSPHOROUS 3.4 mg/dL (2.5-4.9); SGOT/AST 30 U/L (15-37); SGPT/ALT 37 U/L (13-61); SODIUM 138 mmol/L (136-145); TOT PROT 7.2 g/dl (6.4-8.2)
[2019-04-09 16:42] LABS: URINE APPEARANCE CLOUDY; URINE BILIRUBIN NEGATIVE (NEGATIVE); URINE COLOR YELLOW; URINE GLUCOSE (UA) 2+ (NEGATIVE); URINE KETONE TRACE (NEGATIVE); URINE LEUK ESTERASE NEGATIVE (NEGATIVE); URINE NITRITE NEGATIVE (NEGATIVE); URINE PROTEIN NEGATIVE (NEGATIVE); URINE UROBILINOGEN 0.2 mg/dL (0.2-1.0)
[2019-04-09 17:05] LABS: COCAINE, UR NEGATIVE ng/ml (CUTOFF=300); OPIATES, URI NEGATIVE ng/ml (CUTOFF=300); PHENCYCLIDINE,URINE NEGATIVE ng/ml (CUTOFF=25); URINE AMPHETAMINES NEGATIVE ng/ml (CUTOFF=500); URINE BARBITURATES NEGATIVE ng/ml (CUTOFF=200)
[2019-04-09 17:11] LABS: URINE BENZODIAZEPINES POSITIVE ng/ml (CUTOFF=200)
[2019-04-09 17:12] LABS: METHADONE, UR POSITIVE ng/ml (CUTOFF=300)
--- NOTE | 2019-04-09 17:26 | PDOC ---
Documentation entered by Morena Cho SCRIBE, acting as scribe for Mary Rahman MD. Mary Rahman MD: This documentation has been prepared by the Marquis doll Adrianna, SCRIBE, under my direction and personally reviewed by me in its entirety. I confirm that the documentation accurately reflects all work, treatment, procedures, and medical decision making performed by me. Attending Attestation - Resident Resident Name: Rebecca Urbano - [facility] HPI: The patient is a 38 year old male, with a significant PMH of substance abuse ( heroin and xanax), depression, and hypertension, who presents to the emergency department s/p seizure prior to arrival. Patient was discharged 15 hours ago for the same episode. He reports feeling nervous, diaphoretic, shaky, and weak earlier today following his discharge. He does not recall the episode, but [facility] notes the syncopal episode was witnessed. They described it was tonic- clonic, where he began shaking and was lowered to the ground by staff to avoid a fall or head contusion/trauma. [facility] note states he has not been on any medications for detox while there. Patient endorses history of similar symptoms yesterday, and last year while he was in [place] [facility] [place]. The patient denies chest pain, shortness of breath, headache and dizziness. Denies fever, chills, nausea, vomit, diarrhea and constipation. Denies dysuria, frequency, urgency and hematuria. Allergies: NKA Past surgical history: Social history: From [facility]. Currently detoxing from heroin and xanax abuse. Denies EtOH or tobacco use. PCP: None ([facility]) 04/09/19 16:04 - Physicial Exam PE: GENERAL: +Mildly anxious. Awake, alert, and fully oriented. HEAD: No signs of trauma EYES: PERRLA, EOMI, sclera anicteric, conjunctiva clear ENT: Auricles normal inspection, hearing grossly normal, nares patent, oropharynx clear without exudates. Moist mucosa NECK: Normal ROM, supple, no lymphadenopathy, JVD, or masses LUNGS: Breath sounds equal, clear to auscultation bilaterally. No wheezes, and no crackles HEART: +Mild tachycardia. Regular rate and rhythm, normal S1 and S2, no murmurs , rubs or gallops ABDOMEN: Soft, nontender, normoactive bowel sounds. No guarding, no rebound. No masses EXTREMITIES: Normal range of motion, no edema. No clubbing or cyanosis. No cords, erythema, or tenderness NEUROLOGICAL: +Mildly tremulous with tongue fasciculations. +Mildly anxious. Cranial nerves II through XII grossly intact. Normal speech, normal gait SKIN: Warm, Dry, normal turgor, no rashes or lesions noted. 04/09/19 16:51 - Medical Decision Making 04/09/19 16:16 Pt presents to the ED complaining of witnessed tonic clonic seizure, anxiety, sleeplessness, tremulousness and sweating. Symptoms are consistent with xanax withdrawal. Will check labs and consider admission vs discharge to [facility] detox.
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
[2019-04-09] MEDS ORDERED: LORazepam 1 MG TABLET PO PRN (17:49)
[2019-04-09] MEDS: SODIUM CHLORIDE 1,000 ML IV SCH (17:50)
[2019-04-09] MEDS: HEPARIN NA (PORCINE) 5,000 UNITS/ML 1ML VIAL SQ SCH (21:43)
[2019-04-09] MEDS ORDERED: levETIRAcetam 500 MG/5 ML INJECTION VIAL IVPB ONE ×2 (22:39→22:42)
[2019-04-09] MEDS ORDERED: PHENobarbital SODIUM 65 MG/1 ML VIAL ONE ×2 (22:43→22:50)
[2019-04-09] MEDS ORDERED: PHENobarbital SODIUM 130 MG/1 ML VIAL IV ONE (23:00)
--- NOTE | 2019-04-09 23:01 | RAPID ---
Physical Examination Vital Signs: Vital Signs Temperature 98.0 F 04/09/19 20:49 Pulse Rate 100 H 04/09/19 20:49 Respiratory Rate 18 04/09/19 20:49 Blood Pressure 126/77 04/09/19 20:49 O2 Sat by Pulse Oximetry (%) 98 04/09/19 20:49 Findings/Remarks: Called to evaluate patient. Patient had been seizing for a few minutes. Patient had 3 rounds of 2 mg of ativan. Phenobarbital also hung. patient continued to seize. Anesthesia stuck in a case. 1 gm Keppra hung. Patient continue to seize for over 15 minutes. Called ED resident, Dr. Whatley to intubate patient. Propofol and succinate given, patient intubated, breath sounds heard B/L. CXR ordered, and propofol drip hung. Electrolytes WNL. Patient received librium today for withdrawl hx. Patient transferred to ICU. Labs: CBC, BMP 04/09/19 15:22 04/09/19 15:22
--- NOTE | 2019-04-09 23:07 | CONSULT ---
Consultation: REQUESTING PROVIDER: Dr nathan CONSULT REQUEST: We have been asked to medically evaluate this patient for ( Status Epileptics- generalized tonic clonic seizure ). HISTORY OF PRESENT ILLNESS:History is taking from medical records as pt is non responsive in ststus epilipticus 38yo man with a history of substance abuse (heroin, Xanax) and HTN who [facility] in [facility] with an apparent tonic clonic seizure episode, witnessed by staff at [facility]. Occurred in afternoon on 04/09/19. Unclear how long seizure episode lasted but likely a few minutes. No head trauma reported. Pt says he used up to 10 bags of heroin a day and 12 mg of xanax a day. Denied any focal weakness, headaches, or dizziness. rapid response was called @[address] , @10.32 pm for pt mentioned due to generalized tonic clonic seizure did not break with Ativan and fenobarbital intubated and sedated on propofol and monitored in ICU , seizure last 21 min per floor nurse REVIEW OF SYSTEMS: un able to obtain PHYSICAL EXAMINATION Vital Signs - 24 hr 04/09/19 04/09/19 04/09/19 14:07 15:36 18:00 Temperature 98.5 F 98.8 F Pulse Rate 109 H 102 H Respiratory 16 16 Rate Blood Pressure 108/66 138/78 O2 Sat by Pulse 99 99 Oximetry (%) 04/09/19 04/09/19 18:33 20:49 Temperature 98.0 F Pulse Rate 100 H Respiratory 18 Rate Blood Pressure 126/77 O2 Sat by Pulse 98 98 Oximetry (%) GENERAL: actively seizing , on oxygen mask HEAD: NC/At NECK: , supple LUNGS: CTA B/L HEART: Regular rate and rhythm, normal S1 and S2 without murmur, rub or gallop. ABDOMEN: obese , Soft, nontender, not distended, normoactive bowel sounds, no guarding, LOWER EXTREMITIES: 2+ pulses, warm, well-perfused. No calf tenderness. No peripheral edema. NEUROLOGICAL: generalized tonic clonic seizure for about 30 min , non responsive PSYCHIATRIC: Cooperative. Laboratory Results - last 24 hr 04/09/19 04/09/19 04/09/19 15:22 15:22 15:45 WBC 11.4 H RBC 4.91 Hgb 14.0 Hct 41.8 MCV 85.1 MCH 28.5 MCHC 33.5 RDW 13.1 Plt Count 325 MPV 8.9 Absolute Neuts (auto) 7.3 Neutrophils % 63.5 Lymphocytes % 27.5 Monocytes % 7.0 Eosinophils % 1.6 Basophils % 0.4 Nucleated RBC % 0 Sodium 138 Potassium 4.0 Chloride 106 Carbon Dioxide 26 Anion Gap 6 L BUN 22 H Creatinine 0.9 Est GFR (CKD-EPI)AfAm 124.26 Est GFR (CKD-EPI)NonAf 107.21 POC Glucometer Random Glucose 137 H Calcium 9.1 Phosphorus 3.4 Magnesium 2.3 Total Bilirubin 0.7 AST 30 ALT 37 Alkaline Phosphatase 71 Total Protein 7.2 Albumin 4.0 Urine Color Yellow Urine Appearance Cloudy Urine pH 5.0 Ur Specific [place] 1.043 H Urine Protein Negative Urine Glucose (UA) 2+ H Urine Ketones Trace H Urine Blood Negative Urine Nitrite Negative Urine Bilirubin Negative Urine Urobilinogen 0.2 Ur Leukocyte Esterase Negative Opiates Screen Methadone Screen Barbiturate Screen Phencyclidine Screen Ur Amphetamines Screen MDMA (Ecstasy) Screen Benzodiazepines Screen Cocaine Screen U Marijuana (THC) Screen Alcohol, Quantitative < 3.0 04/09/19 04/09/19 04/09/19 15:45 21:39 23:00 WBC RBC Hgb Hct MCV MCH MCHC RDW Plt Count MPV Absolute Neuts (auto) Neutrophils % Lymphocytes % Monocytes % Eosinophils % Basophils % Nucleated RBC % Sodium Potassium Chloride Carbon Dioxide Anion Gap BUN Creatinine Est GFR (CKD-EPI)AfAm Est GFR (CKD-EPI)NonAf POC Glucometer 96 100 Random Glucose Calcium Phosphorus Magnesium Total Bilirubin AST ALT Alkaline Phosphatase Total Protein Albumin Urine Color Urine Appearance Urine pH Ur Specific [place] Urine Protein Urine Glucose (UA) Urine Ketones Urine Blood Urine Nitrite Urine Bilirubin Urine Urobilinogen Ur Leukocyte Esterase Opiates Screen Negative Methadone Screen Positive A* Barbiturate Screen Negative Phencyclidine Screen Negative Ur Amphetamines Screen Negative MDMA (Ecstasy) Screen Negative Benzodiazepines Screen Positive A* Cocaine Screen Negative U Marijuana (THC) Screen Negative Alcohol, Quantitative Active Medications Generic Name Dose Route Start Last Admin Trade Name Freq PRN Reason Stop Dose Admin Chlordiazepoxide HCl 20 mg 04/09/19 18:00 Librium - PO Q6HPO MEDINA Heparin Sodium (Porcine) 5,000 unit 04/09/19 22:00 04/09/19 21:43 Heparin - SQ 5,000 unit BID MEDINA Administration Sodium Chloride 1,000 mls @ 75 mls/hr 04/09/19 17:45 04/09/19 17:50 Normal Saline - IV 75 mls/hr ASDIR MEDINA Administration Propofol 1,000,000 mcg in 100 mls @ 2.844 mls/hr 04/09/19 23:00 Diprivan - IVPB TITR MEDINA Protocol 5 MCG/KG/MIN Lorazepam 2 mg 04/09/19 17:49 04/09/19 21:54 Ativan - PO 2 mg TID PRN Administration AGITATION Lorazepam 2 mg 04/09/19 22:59 Ativan Injection - IVPUSH 04/09/19 23:00 ONCE ONE Phenobarbital 100 mg 04/09/19 23:00 Phenobarbital Injection - IV 04/09/19 23:01 ONCE ONE CBC, BMP 04/09/19 15:22 04/09/19 15:22 ASSESSMENT/PLAN: 38yo man with a history of substance abuse (heroin, Xanax) and HTN who presents from [facility] rehab for the 2nd time in 24hrs with an apparent tonic clonic seizure episode,presented to ICU after rapid response due to status epilepticus # Generalized tonic clonic seizure , (Status epilepticus ??? less than 30 min ) * Generalized tonic clonic seizure for 21 min did not break with 6 mg Ativan and 1000 Keppra and 100 Fenobarbital * Intubated BY ED resident Dr Whatley * started on prpofol drip * [place] cx * CPK * CBC, CMP , Mg , Phos, Ca , , finger stick * urine tox positive for meethadone and benzo * cont methadone dose * cardiac cath lab radiology technologist Blood pressure monitor * EKG * EEG * neurocheck Q 1 hr * Neuro cosnult * NPO , * IV fluids NS @ 100 CC/hr * DVTS proph SVDS , Lovenox 40 SQ daily * cont thiamin * lueckocytosis likely reactive , monitor off abx * added versid drip as pt still not sedated on prpofol * spoke with Dr Pierre who recommend stop keppra and start Depakote 500 BID and check level at noon Dispo: We will continue to follow the patient. Thank you for this consultative opportunity. Visit type - Emergency Visit Emergency Visit: Yes ED Registration Date: 04/10/19 Care time: The patient presented to the Emergency Department on the above date and was hospitalized for further evaluation of their emergent condition. - New Patient This patient is new to me today: Yes Date on this admission: 04/10/19 - Critical Care Critical Care patient: Yes Total Critical Care Time (in minutes): 45 Critical Care Statement: The care of this patient involved high complexity decision making to prevent further life threatening deterioration of the patient 's condition and/or to evaluate & treat vital organ system(s) failure or risk of failure.
[2019-04-09] MEDS: PROPOFOL 1,000,000 MCG/100 ML VIAL IVPB SCH (23:20)
[2019-04-09] MEDS: chlordiazePOXIDE HCL 10 MG CAPSULE PO SCH (23:27)
--- NOTE | 2019-04-09 23:28 | ED.PROV ---
Physicial Exam I saw and examined the patient. - Vital Signs Last Vital Signs Temp Pulse Resp BP Pulse Ox 98.0 F 100 H 18 126/77 98 04/09/19 20:49 04/09/19 20:49 04/09/19 20:49 04/09/19 20:49 04/09/19 20:49 - Physical Exam Reason for Response: Called to for 38 y/o male reported to be in status epileptics. Seizure activity continued despite multiple rounds of IV benzodiazepine administration. Electrolytes were reportedly within normal limits per IM resident at bedside. Critical Care Time/MDM Note - Medical Decision Making Note: Endotracheal Intubation Procedure Note INDICATION: Persistent seizures. Intubated for airway protection. PROCEDURE FINANCIAL RETIREMENT PLAN SPECIALIST: Guanaco Whatley M.D. PGY1 ATTENDING PHYSICIAN: Dr. Emanuel. In Attendance (Y/N) Y CONSENT: Procedure was performed emergently. Consent was implied. PROCEDURE SUMMARY: The patient was placed on a cardiac nurse practitioner including continuous pulse oximetry. Rapid Sequence Intubation was conducted. The patient received 100 mg of Propofol for induction and 100 mg of Succinylcholine for adequate paralysis. Using a Mac laryngoscope and a size 8.0 endotracheal cuffed tube with stylet, the patient was intubated on the 1st attempt. The stylet was removed and cuff balloon was inflated. Appropriate endotracheal tube position was confirmed by direct visualization of vocal cord passage, fogging of the tube, CO2 colometric indicator, symmetric breath sounds, and continuous end-tidal CO2 monitor. The tube was secured at 24 cm at the lips. Post intubation chest x-ray is pending at this time.
[2019-04-09] MEDS: MIDAZOLAM 100 MG in SODIUM CHLORIDE 100 ML IVPB SCH (23:40)
[2019-04-09] MEDS ORDERED: MIDAZOLAM 100 MG/100 ML MG IVPB ONE (23:43)
[2019-04-10 00:01] LABS: ARTERIAL BLOOD GAS PCO2 35.6 mmHg (35-45); ARTERIAL BLOOD GAS PO2 56.1 mmHg (80-105)
[2019-04-10 00:03] LABS: ALLENS TEST POSITIVE
[2019-04-10] MEDS ORDERED: LORazepam 2 MG/ML SDV VIAL IVPUSH ONE ×2 (00:10→21:48)
[2019-04-10] MEDS ORDERED: VALPROATE SODIUM 500 MG/5 ML VIAL IVPB ONE (00:47)
[2019-04-10] MEDS: chlordiazePOXIDE HCL 10 MG CAPSULE PO SCH ×4 (00:51→17:34)
[2019-04-10 01:26] LABS: CALCIUM 8.2 mg/dL (8.5-10.1); CREATININE 0.7 mg/dL (0.55-1.3); MAGNESIUM 2.2 mg/dL (1.8-2.4); PHOSPHOROUS 3.7 mg/dL (2.5-4.9); POTASSIUM 3.7 mmol/L (3.5-5.1)
[2019-04-10 02:27] LABS: BASO % 0.4 % (0-2.0); EOS % 1.4 % (0-4.5); HEMATOCRIT 36.9 % (35.4-49); HEMOGLOBIN 12.6 GM/dL (11.7-16.9); LYMPH % 19.2 % (8-40); MCH 29.3 pg (25.7-33.7); MCHC 34.1 g/dl (32.0-35.9); MEAN CELL VOLUME 85.8 fl (80-96); MEAN PLT VOLUME 9.4 fl (7.5-11.1); MONO % 6.3 % (3.8-10.2); NEUT % 72.7 % (42.8-82.8); PLATELET COUNT 298 K/MM3 (134-434); WHITE BLOOD COUNT 12.3 K/mm3 (4.0-10.0)
[2019-04-10] MEDS: SCOPOLAMINE HYDROBROMIDE 1 PATCH PATCH.TD72 TD SCH (02:56)
--- NOTE | 2019-04-10 07:39 | PN ---
Physical Exam: SUBJECTIVE: Patient seen and examined at bedside. Intubated and sedated. Pt started on Keppra and given more Ativan overnight due to waking up. No new seizure like activities once placed on propofol. OBJECTIVE: Vital Signs Period Temp Pulse Resp BP Sys/Malcolm Pulse Ox Last 24 Hr 97.6 F-99.4 F 79-109 14-26 108-142/64-103 98-100 GENERAL: Intubated and sedated HEAD: Normal with no signs of trauma. EYES: PERRL, constricted pupils, sclera anicteric, conjunctiva clear. No ptosis. LUNGS: Intubaed with 8.0 tube at 25cm. Breath sounds equal, clear to auscultation bilaterally. No crackles HEART: Regular rate and rhythm, S1, S2 without murmur, rub or gallop. ABDOMEN: Soft, nontender, nondistended, normoactive bowel sounds, no guarding, no rebound, no hepatosplenomegaly, no masses. EXTREMITIES: 2+ pulses, warm, well-perfused, no edema. NEUROLOGICAL: Sedated. DTR 2+ SKIN: Warm, dry, normal turgor, no rashes or lesions noted Laboratory Results - last 24 hr 04/09/19 04/09/19 04/09/19 15:22 15:22 15:45 WBC 11.4 H Corrected WBC (auto) RBC 4.91 Hgb 14.0 Hct 41.8 MCV 85.1 MCH 28.5 MCHC 33.5 RDW 13.1 Plt Count 325 MPV 8.9 Absolute Neuts (auto) 7.3 Neutrophils % 63.5 Lymphocytes % 27.5 Monocytes % 7.0 Eosinophils % 1.6 Basophils % 0.4 Nucleated RBC % 0 Manual Slide Review Platelet Comment Anticoagulation Therapy Puncture Site ABG pH ABG pCO2 at Pt Temp ABG pO2 at Pt Temp ABG HCO3 ABG O2 Sat (Measured) ABG O2 Content ABG Base Excess Lucien Test O2 Delivery Device Oxygen Flow Rate Vent Mode Vent Rate Mechanical Rate PEEP Pressure Support Vent Sodium 138 Potassium 4.0 Chloride 106 Carbon Dioxide 26 Anion Gap 6 L BUN 22 H Creatinine 0.9 Est GFR (CKD-EPI)AfAm 124.26 Est GFR (CKD-EPI)NonAf 107.21 POC Glucometer Random Glucose 137 H Lactic Acid Calcium 9.1 Phosphorus 3.4 Magnesium 2.3 Total Bilirubin 0.7 AST 30 ALT 37 Alkaline Phosphatase 71 Creatine Kinase Creatine Kinase Index CK-MB (CK-2) Total Protein 7.2 Albumin 4.0 TSH Urine Color Yellow Urine Appearance Cloudy Urine pH 5.0 Ur Specific [place] 1.043 H Urine Protein Negative Urine Glucose (UA) 2+ H Urine Ketones Trace H Urine Blood Negative Urine Nitrite Negative Urine Bilirubin Negative Urine Urobilinogen 0.2 Ur Leukocyte Esterase Negative Opiates Screen Methadone Screen Barbiturate Screen Phencyclidine Screen Ur Amphetamines Screen MDMA (Ecstasy) Screen Benzodiazepines Screen Cocaine Screen U Marijuana (THC) Screen Alcohol, Quantitative < 3.0 04/09/19 04/09/19 04/09/19 15:45 21:39 23:00 WBC Corrected WBC (auto) RBC Hgb Hct MCV MCH MCHC RDW Plt Count MPV Absolute Neuts (auto) Neutrophils % Lymphocytes % Monocytes % Eosinophils % Basophils % Nucleated RBC % Manual Slide Review Platelet Comment Anticoagulation Therapy Puncture Site ABG pH ABG pCO2 at Pt Temp ABG pO2 at Pt Temp ABG HCO3 ABG O2 Sat (Measured) ABG O2 Content ABG Base Excess Lucien Test O2 Delivery Device Oxygen Flow Rate Vent Mode Vent Rate Mechanical Rate PEEP Pressure Support Vent Sodium Potassium Chloride Carbon Dioxide Anion Gap BUN Creatinine Est GFR (CKD-EPI)AfAm Est GFR (CKD-EPI)NonAf POC Glucometer 96 100 Random Glucose Lactic Acid Calcium Phosphorus Magnesium Total Bilirubin AST ALT Alkaline Phosphatase Creatine Kinase Creatine Kinase Index CK-MB (CK-2) Total Protein Albumin TSH Urine Color Urine Appearance Urine pH Ur Specific [place] Urine Protein Urine Glucose (UA) Urine Ketones Urine Blood Urine Nitrite Urine Bilirubin Urine Urobilinogen Ur Leukocyte Esterase Opiates Screen Negative Methadone Screen Positive A* Barbiturate Screen Negative Phencyclidine Screen Negative Ur Amphetamines Screen Negative MDMA (Ecstasy) Screen Negative Benzodiazepines Screen Positive A* Cocaine Screen Negative U Marijuana (THC) Screen Negative Alcohol, Quantitative 04/09/19 04/10/19 04/10/19 23:50 00:40 00:40 WBC Cancelled Corrected WBC (auto) Cancelled RBC Cancelled Hgb Cancelled Hct Cancelled MCV Cancelled MCH Cancelled MCHC Cancelled RDW Cancelled Plt Count Cancelled MPV Cancelled Absolute Neuts (auto) Neutrophils % Lymphocytes % Monocytes % Eosinophils % Basophils % Nucleated RBC % Manual Slide Review Cancelled Platelet Comment Cancelled Anticoagulation Therapy No Puncture Site Right brachial ABG pH 7.40 ABG pCO2 at Pt Temp 35.6 ABG pO2 at Pt Temp 56.1 L ABG HCO3 21.7 L ABG O2 Sat (Measured) 88.0 L ABG O2 Content 15.3 ABG Base Excess -2.0 Lucien Test Positive O2 Delivery Device Vent Oxygen Flow Rate 40% Vent Mode A/c Vent Rate 14 Mechanical Rate No Result Required. PEEP 5.0 Pressure Support Vent 500 Sodium 139 Potassium 3.7 Chloride 109 H Carbon Dioxide 23 Anion Gap 7 L BUN 18 Creatinine 0.7 Est GFR (CKD-EPI)AfAm 137.78 Est GFR (CKD-EPI)NonAf 118.88 POC Glucometer Random Glucose 105 Lactic Acid Calcium 8.2 L Phosphorus 3.7 Magnesium 2.2 Total Bilirubin AST ALT Alkaline Phosphatase Creatine Kinase Creatine Kinase Index CK-MB (CK-2) Total Protein Albumin TSH Urine Color Urine Appearance Urine pH Ur Specific [place] Urine Protein Urine Glucose (UA) Urine Ketones Urine Blood Urine Nitrite Urine Bilirubin Urine Urobilinogen Ur Leukocyte Esterase Opiates Screen Methadone Screen Barbiturate Screen Phencyclidine Screen Ur Amphetamines Screen MDMA (Ecstasy) Screen Benzodiazepines Screen Cocaine Screen U Marijuana (THC) Screen Alcohol, Quantitative 04/10/19 04/10/19 04/10/19 00:40 00:40 02:00 WBC 12.3 H Corrected WBC (auto) RBC 4.30 Hgb 12.6 Hct 36.9 MCV 85.8 MCH 29.3 MCHC 34.1 RDW 13.0 Plt Count 298 MPV 9.4 Absolute Neuts (auto) 8.9 H Neutrophils % 72.7 Lymphocytes % 19.2 D Monocytes % 6.3 Eosinophils % 1.4 Basophils % 0.4 Nucleated RBC % 0 Manual Slide Review Platelet Comment Anticoagulation Therapy Puncture Site ABG pH ABG pCO2 at Pt Temp ABG pO2 at Pt Temp ABG HCO3 ABG O2 Sat (Measured) ABG O2 Content ABG Base Excess Lucien Test O2 Delivery Device Oxygen Flow Rate Vent Mode Vent Rate Mechanical Rate PEEP Pressure Support Vent Sodium Potassium Chloride Carbon Dioxide Anion Gap BUN Creatinine Est GFR (CKD-EPI)AfAm Est GFR (CKD-EPI)NonAf POC Glucometer Random Glucose Lactic Acid 1.5 Calcium Phosphorus Magnesium Total Bilirubin AST ALT Alkaline Phosphatase Creatine Kinase 1052 H Creatine Kinase Index 0.1 CK-MB (CK-2) 1.7 Total Protein Albumin TSH 2.78 Urine Color Urine Appearance Urine pH Ur Specific [place] Urine Protein Urine Glucose (UA) Urine Ketones Urine Blood Urine Nitrite Urine Bilirubin Urine Urobilinogen Ur Leukocyte Esterase Opiates Screen Methadone Screen Barbiturate Screen Phencyclidine Screen Ur Amphetamines Screen MDMA (Ecstasy) Screen Benzodiazepines Screen Cocaine Screen U Marijuana (THC) Screen Alcohol, Quantitative 04/10/19 02:20 WBC Corrected WBC (auto) RBC Hgb Hct MCV MCH MCHC RDW Plt Count MPV Absolute Neuts (auto) Neutrophils % Lymphocytes % Monocytes % Eosinophils % Basophils % Nucleated RBC % Manual Slide Review Platelet Comment Anticoagulation Therapy Puncture Site ABG pH ABG pCO2 at Pt Temp ABG pO2 at Pt Temp ABG HCO3 ABG O2 Sat (Measured) ABG O2 Content ABG Base Excess Lucien Test O2 Delivery Device Oxygen Flow Rate Vent Mode Vent Rate Mechanical Rate PEEP Pressure Support Vent Sodium Potassium Chloride Carbon Dioxide Anion Gap BUN Creatinine Est GFR (CKD-EPI)AfAm Est GFR (CKD-EPI)NonAf POC Glucometer 127 Random Glucose Lactic Acid Calcium Phosphorus Magnesium Total Bilirubin AST ALT Alkaline Phosphatase Creatine Kinase Creatine Kinase Index CK-MB (CK-2) Total Protein Albumin TSH Urine Color Urine Appearance Urine pH Ur Specific [place] Urine Protein Urine Glucose (UA) Urine Ketones Urine Blood Urine Nitrite Urine Bilirubin Urine Urobilinogen Ur Leukocyte Esterase Opiates Screen Methadone Screen Barbiturate Screen Phencyclidine Screen Ur Amphetamines Screen MDMA (Ecstasy) Screen Benzodiazepines Screen Cocaine Screen U Marijuana (THC) Screen Alcohol, Quantitative Active Medications Generic Name Dose Route Start Last Admin Trade Name Freq PRN Reason Stop Dose Admin Chlordiazepoxide HCl 20 mg 04/09/19 18:00 04/10/19 05:44 Librium - PO Not Given Q6HPO MEDINA Heparin Sodium (Porcine) 5,000 unit 04/09/19 22:00 04/09/19 21:43 Heparin - SQ 5,000 unit BID MEDINA Administration Sodium Chloride 1,000 mls @ 75 mls/hr 04/09/19 17:45 04/09/19 17:50 Normal Saline - IV 75 mls/hr ASDIR MEDINA Administration Propofol 1,000,000 mcg in 100 mls @ 2.844 mls/hr 04/09/19 23:00 04/10/19 06: 10 Diprivan - IVPB 45 mcg/kg/min TITR MEDINA 25.596 mls/hr Titration Protocol 5 MCG/KG/MIN Midazolam HCl 100 mg/ Sodium 100 mls @ 1 mls/hr 04/09/19 23:45 04/10/19 03:45 Chloride IVPB 6 mg/hr TITR MEDINA 6 mls/hr Titration Protocol 1 MG/HR Lorazepam 2 mg 04/09/19 17:49 04/09/19 21:54 Ativan - PO 2 mg TID PRN Administration AGITATION Scopolamine HBr 1 patch 04/10/19 01:15 04/10/19 02:56 Transderm-Scop - TD 1 patch Q72H [facility]INA Administration Valproate Sodium 500 mg 04/10/19 10:00 Depacon Injection - IVPB BID MEDINA ASSESSMENT/PLAN: 89yo M with PMH of Opioid Dependence, Benzodiazepine Dependence, HLD BIBA from [facility] for tonic/clonic seizure like activities. Patient has a history of withdrawal seizures. Was in status epilepticus on floor, intubated for airway protection and brought to ICU. NEURO -Witnessed tonic/clonic seizure like activities. History of seizure from BZ withdrawal -Neurology consulted (Dr. Briones) -Received Ativan and phenobarbitol -Intubated for airway protection. Sedated with Propofol 75, Versed 6 -Keppra 500 -Will wean sedation as tolerated CARDS/VASC -Arrived tachycardic likely 2/2 withdrawal -BPs stable -Will monitor PULM -Intubated with 8.0 tube at 25cm for airway protection -Vent settings: 14/500/40/5 -Wean as tolerated -CXR: tube in place, no lung pathology ENDO -Elevated CPK likely 2/2 tonic/clonic seizures -No renal injury -IV fluids -Will trend electrolytes RENAL -No active issues GI -No active issues ID -No active issues HEME/ONC -No active issues -FEN -NPO -Maintenance fluids -PROPHY -Heparin sc Dispo: Will continue to monitor in ICU. Will wean off sedation and vent Visit type - Emergency Visit Emergency Visit: Yes ED Registration Date: 04/10/19 Care time: The patient presented to the Emergency Department on the above date and was hospitalized for further evaluation of their emergent condition. - New Patient This patient is new to me today: Yes Date on this admission: 04/10/19 - Critical Care Critical Care patient: Yes Total Critical Care Time (in minutes): 40 Critical Care Statement: The care of this patient involved high complexity decision making to prevent further life threatening deterioration of the patient 's condition and/or to evaluate & treat vital organ system(s) failure or risk of failure.
[2019-04-10 09:50] LABS: ALBUMIN 3.5 g/dl (3.4-5.0); BILIRUBIN,TOTAL 0.8 mg/dL (0.2-1); TOT PROT 6.2 g/dl (6.4-8.2)
--- NOTE | 2019-04-10 09:55 | CON.NEURO ---
Consult Consult Specialty:: Ignacio Referred by:: ICU - History of Present Illness History of Present Illness: 38 years old man with opiod and ETOH [facility] Patient is a poor historian Patient was seen intubated patient is in the medical ICU mostly history was obtained from the medical chart patient was on Versed drip - History Source History Provided By: Medical Record Limitations to Obtaining History: Clinical Condition - Alcohol/Substance Use Hx Alcohol Use: No - Smoking History Smoking history: Smoker current status UNK Have you smoked in the past 12 months: No Aproximately how many cigarettes per day: 0 Home Medications - Allergies Allergies/Adverse Reactions: Allergies Allergy/AdvReac Type Severity Reaction Status Date / Time No Known Allergies Allergy Verified 04/09/19 14:05 - Home Medications Home Medications: Ambulatory Orders NK [No Known Home Medication] 04/09/19 Family Disease History - Family Disease History Family History: Unable to Obtain Family Disease History: CA: Mother (breast CA), Other: Father (HTN) Physical Exam-Neuro Vital Signs: Vital Signs Temperature 97.6 F 04/10/19 06:00 Pulse Rate 79 04/10/19 06:00 Respiratory Rate 17 04/10/19 09:26 Blood Pressure 133/96 04/10/19 06:00 O2 Sat by Pulse Oximetry (%) 100 04/10/19 07:54 Psychiatric: Yes: Agitated Labs: CBC, BMP 04/10/19 02:00 04/10/19 00:40 - Neuro Exam Level Of Consciousness: Yes: Sedated Eyes: Yes: PERRLA DTR's: 1+ Left Bicep, 1+ Right Bicep, 1+ Left Tricep, 1+ Right Tricep Problem List - Problems (1) Seizure Assessment/Plan: neurochecks every 1 hour. Seizure precautions. Ativan when necessary seizure. EEG. Keppra to stop. Depakote 500 twice daily. Check Depakote level Code(s): R56.9 - UNSPECIFIED CONVULSIONS
[2019-04-10] MEDS ORDERED: levETIRAcetam 500 MG/5 ML INJECTION VIAL IVPB SCH (10:00)
[2019-04-10] MEDS: HEPARIN NA (PORCINE) 5,000 UNITS/ML 1ML VIAL SQ SCH ×2 (10:00→21:10)
[2019-04-10] MEDS: VALPROATE SODIUM 500 MG/5 ML VIAL IVPB SCH ×2 (10:01→21:10)
--- NOTE | 2019-04-10 11:42 | PN ---
Teaching Attending Note Name of Resident: Alana Redding ATTENDING PHYSICIAN STATEMENT I saw and evaluated the patient. I reviewed the resident's note and discussed the case with the resident. I agree with the resident's findings and plan as documented. SUBJECTIVE: Patient seen and examined in the ICU. Intubated and sedated on AC Mode of vent , 40% FiO2. No pressors. No seizure activity noted while on sedation. Intake & Output 04/07/19 04/08/19 04/09/19 04/10/19 23:59 23:59 23:59 23:59 Intake Total 724 Balance 724 Weight 209 lb 214 lb Last Vital Signs Temp Pulse Resp BP Pulse Ox 97.6 F 79 17 133/96 100 04/10/19 06:00 04/10/19 06:00 04/10/19 09:26 04/10/19 06:00 04/10/19 07:54 Active Medications Chlordiazepoxide HCl (Librium -) 20 mg PO Q6HPO [facility] Last Admin: 04/10/19 05:44 Dose: Not Given Heparin Sodium (Porcine) (Heparin -) 5,000 unit SQ BID [facility] Last Admin: 04/10/19 10:00 Dose: 5,000 unit Sodium Chloride (Normal Saline -) 1,000 mls @ 75 mls/hr IV ASDIR [facility] Last Admin: 04/09/19 17:50 Dose: 75 mls/hr Propofol (Diprivan -) 1,000,000 mcg in 100 mls @ 2.844 mls/hr IVPB TITR [facility]; Protocol Last Titration: 04/10/19 06:10 Dose: 45 mcg/kg/min, 25.596 mls/hr Midazolam HCl 100 mg/ Sodium (Chloride) 100 mls @ 1 mls/hr IVPB TITR [facility]INA; Protocol Last Titration: 04/10/19 03:45 Dose: 6 mg/hr, 6 mls/hr Lorazepam (Ativan -) 2 mg PO TID PRN PRN Reason: AGITATION Last Admin: 04/09/19 21:54 Dose: 2 mg Scopolamine HBr (Transderm-Scop -) 1 patch TD Q72H [facility] Last Admin: 04/10/19 02:56 Dose: 1 patch Valproate Sodium (Depacon Injection -) 500 mg IVPB BID [facility] Last Admin: 04/10/19 10:01 Dose: 500 mg GENERAL: Intubated and sedated, no seizure activity noted HEAD: NC/At NECK: , supple LUNGS: CTA B/L HEART: Regular rate and rhythm, normal S1 and S2 without murmur, rub or gallop. ABDOMEN: obese , Soft, nontender, not distended, normoactive bowel sounds, no guarding, LOWER EXTREMITIES: 2+ pulses, warm, well-perfused. No peripheral edema. NEUROLOGICAL: Sedated, no seizure activity PSYCHIATRIC: Sedated Laboratory Results - last 24 hr 04/09/19 04/09/19 04/09/19 15:22 15:22 15:45 WBC 11.4 H Corrected WBC (auto) RBC 4.91 Hgb 14.0 Hct 41.8 MCV 85.1 MCH 28.5 MCHC 33.5 RDW 13.1 Plt Count 325 MPV 8.9 Absolute Neuts (auto) 7.3 Neutrophils % 63.5 Lymphocytes % 27.5 Monocytes % 7.0 Eosinophils % 1.6 Basophils % 0.4 Nucleated RBC % 0 Manual Slide Review Platelet Comment Anticoagulation Therapy Puncture Site ABG pH ABG pCO2 at Pt Temp ABG pO2 at Pt Temp ABG HCO3 ABG O2 Sat (Measured) ABG O2 Content ABG Base Excess Lucien Test O2 Delivery Device Oxygen Flow Rate Vent Mode Vent Rate Mechanical Rate PEEP Pressure Support Vent Sodium 138 Potassium 4.0 Chloride 106 Carbon Dioxide 26 Anion Gap 6 L BUN 22 H Creatinine 0.9 Est GFR (CKD-EPI)AfAm 124.26 Est GFR (CKD-EPI)NonAf 107.21 POC Glucometer Random Glucose 137 H Lactic Acid Calcium 9.1 Phosphorus 3.4 Magnesium 2.3 Total Bilirubin 0.7 AST 30 ALT 37 Alkaline Phosphatase 71 Creatine Kinase Creatine Kinase Index CK-MB (CK-2) Total Protein 7.2 Albumin 4.0 TSH Urine Color Yellow Urine Appearance Cloudy Urine pH 5.0 Ur Specific [place] 1.043 H Urine Protein Negative Urine Glucose (UA) 2+ H Urine Ketones Trace H Urine Blood Negative Urine Nitrite Negative Urine Bilirubin Negative Urine Urobilinogen 0.2 Ur Leukocyte Esterase Negative Opiates Screen Methadone Screen Barbiturate Screen Phencyclidine Screen Ur Amphetamines Screen MDMA (Ecstasy) Screen Benzodiazepines Screen Cocaine Screen U Marijuana (THC) Screen Alcohol, Quantitative < 3.0 04/09/19 04/09/19 04/09/19 15:45 21:39 23:00 WBC Corrected WBC (auto) RBC Hgb Hct MCV MCH MCHC RDW Plt Count MPV Absolute Neuts (auto) Neutrophils % Lymphocytes % Monocytes % Eosinophils % Basophils % Nucleated RBC % Manual Slide Review Platelet Comment Anticoagulation Therapy Puncture Site ABG pH ABG pCO2 at Pt Temp ABG pO2 at Pt Temp ABG HCO3 ABG O2 Sat (Measured) ABG O2 Content ABG Base Excess Lucien Test O2 Delivery Device Oxygen Flow Rate Vent Mode Vent Rate Mechanical Rate PEEP Pressure Support Vent Sodium Potassium Chloride Carbon Dioxide Anion Gap BUN Creatinine Est GFR (CKD-EPI)AfAm Est GFR (CKD-EPI)NonAf POC Glucometer 96 100 Random Glucose Lactic Acid Calcium Phosphorus Magnesium Total Bilirubin AST ALT Alkaline Phosphatase Creatine Kinase Creatine Kinase Index CK-MB (CK-2) Total Protein Albumin TSH Urine Color Urine Appearance Urine pH Ur Specific [place] Urine Protein Urine Glucose (UA) Urine Ketones Urine Blood Urine Nitrite Urine Bilirubin Urine Urobilinogen Ur Leukocyte Esterase Opiates Screen Negative Methadone Screen Positive A* Barbiturate Screen Negative Phencyclidine Screen Negative Ur Amphetamines Screen Negative MDMA (Ecstasy) Screen Negative Benzodiazepines Screen Positive A* Cocaine Screen Negative U Marijuana (THC) Screen Negative Alcohol, Quantitative 04/09/19 04/10/19 04/10/19 23:50 00:40 00:40 WBC Cancelled Corrected WBC (auto) Cancelled RBC Cancelled Hgb Cancelled Hct Cancelled MCV Cancelled MCH Cancelled MCHC Cancelled RDW Cancelled Plt Count Cancelled MPV Cancelled Absolute Neuts (auto) Neutrophils % Lymphocytes % Monocytes % Eosinophils % Basophils % Nucleated RBC % Manual Slide Review Cancelled Platelet Comment Cancelled Anticoagulation Therapy No Puncture Site Right brachial ABG pH 7.40 ABG pCO2 at Pt Temp 35.6 ABG pO2 at Pt Temp 56.1 L ABG HCO3 21.7 L ABG O2 Sat (Measured) 88.0 L ABG O2 Content 15.3 ABG Base Excess -2.0 Lucien Test Positive O2 Delivery Device Vent Oxygen Flow Rate 40% Vent Mode A/c Vent Rate 14 Mechanical Rate No Result Required. PEEP 5.0 Pressure Support Vent 500 Sodium 139 Potassium 3.7 Chloride 109 H Carbon Dioxide 23 Anion Gap 7 L BUN 18 Creatinine 0.7 Est GFR (CKD-EPI)AfAm 137.78 Est GFR (CKD-EPI)NonAf 118.88 POC Glucometer Random Glucose 105 Lactic Acid Calcium 8.2 L Phosphorus 3.7 Magnesium 2.2 Total Bilirubin 0.8 AST 26 ALT 29 Alkaline Phosphatase 59 Creatine Kinase Creatine Kinase Index CK-MB (CK-2) Total Protein 6.2 L Albumin 3.5 TSH Urine Color Urine Appearance Urine pH Ur Specific [place] Urine Protein Urine Glucose (UA) Urine Ketones Urine Blood Urine Nitrite Urine Bilirubin Urine Urobilinogen Ur Leukocyte Esterase Opiates Screen Methadone Screen Barbiturate Screen Phencyclidine Screen Ur Amphetamines Screen MDMA (Ecstasy) Screen Benzodiazepines Screen Cocaine Screen U Marijuana (THC) Screen Alcohol, Quantitative 04/10/19 04/10/19 04/10/19 00:40 00:40 02:00 WBC 12.3 H Corrected WBC (auto) RBC 4.30 Hgb 12.6 Hct 36.9 MCV 85.8 MCH 29.3 MCHC 34.1 RDW 13.0 Plt Count 298 MPV 9.4 Absolute Neuts (auto) 8.9 H Neutrophils % 72.7 Lymphocytes % 19.2 D Monocytes % 6.3 Eosinophils % 1.4 Basophils % 0.4 Nucleated RBC % 0 Manual Slide Review Platelet Comment Anticoagulation Therapy Puncture Site ABG pH ABG pCO2 at Pt Temp ABG pO2 at Pt Temp ABG HCO3 ABG O2 Sat (Measured) ABG O2 Content ABG Base Excess Lucien Test O2 Delivery Device Oxygen Flow Rate Vent Mode Vent Rate Mechanical Rate PEEP Pressure Support Vent Sodium Potassium Chloride Carbon Dioxide Anion Gap BUN Creatinine Est GFR (CKD-EPI)AfAm Est GFR (CKD-EPI)NonAf POC Glucometer Random Glucose Lactic Acid 1.5 Calcium Phosphorus Magnesium Total Bilirubin AST ALT Alkaline Phosphatase Creatine Kinase 1052 H Creatine Kinase Index 0.1 CK-MB (CK-2) 1.7 Total Protein Albumin TSH 2.78 Urine Color Urine Appearance Urine pH Ur Specific [place] Urine Protein Urine Glucose (UA) Urine Ketones Urine Blood Urine Nitrite Urine Bilirubin Urine Urobilinogen Ur Leukocyte Esterase Opiates Screen Methadone Screen Barbiturate Screen Phencyclidine Screen Ur Amphetamines Screen MDMA (Ecstasy) Screen Benzodiazepines Screen Cocaine Screen U Marijuana (THC) Screen Alcohol, Quantitative 04/10/19 04/10/19 02:20 09:42 WBC Corrected WBC (auto) RBC Hgb Hct MCV MCH MCHC RDW Plt Count MPV Absolute Neuts (auto) Neutrophils % Lymphocytes % Monocytes % Eosinophils % Basophils % Nucleated RBC % Manual Slide Review Platelet Comment Anticoagulation Therapy Puncture Site ABG pH ABG pCO2 at Pt Temp ABG pO2 at Pt Temp ABG HCO3 ABG O2 Sat (Measured) ABG O2 Content ABG Base Excess Lucien Test O2 Delivery Device Oxygen Flow Rate Vent Mode Vent Rate Mechanical Rate PEEP Pressure Support Vent Sodium Potassium Chloride Carbon Dioxide Anion Gap BUN Creatinine Est GFR (CKD-EPI)AfAm Est GFR (CKD-EPI)NonAf POC Glucometer 127 104 Random Glucose Lactic Acid Calcium Phosphorus Magnesium Total Bilirubin AST ALT Alkaline Phosphatase Creatine Kinase Creatine Kinase Index CK-MB (CK-2) Total Protein Albumin TSH Urine Color Urine Appearance Urine pH Ur Specific [place] Urine Protein Urine Glucose (UA) Urine Ketones Urine Blood Urine Nitrite Urine Bilirubin Urine Urobilinogen Ur Leukocyte Esterase Opiates Screen Methadone Screen Barbiturate Screen Phencyclidine Screen Ur Amphetamines Screen MDMA (Ecstasy) Screen Benzodiazepines Screen Cocaine Screen U Marijuana (THC) Screen Alcohol, Quantitative ASSESSMENT/PLAN: Acute Respiratory Failure Status Epilepticus History of substance abuse (heroin, Xanax) HTN AC Mode of vent AEDs per Neuro Monitor off ABX Wean sedation: Versed first then propofol Wean trials once awake Neurocheck NGT enteral feeds if cortes cannot be extubated by tomorrow Requires ICU monitoring Dr Rice Critical care time spent in reviewing chart, evaluating patient and formulating plan - 36 minutes.
--- NOTE | 2019-04-10 15:01 | EKG ---
Test Reason : Blood Pressure : / mmHG Vent. Rate : 099 BPM Atrial Rate : 099 BPM P-R Int : 162 ms QRS Dur : 090 ms QT Int : 362 ms P-R-T Axes : 030 082 035 degrees QTc Int : 464 ms NORMAL SINUS RHYTHM NORMAL ECG WHEN COMPARED WITH ECG OF 08-APR-2019 20:36, NO SIGNIFICANT CHANGE WAS FOUND Confirmed by VIRGINIA WORKMAN MD ([id number]) on 04/10/2019 3:00:44 PM Referred By: Confirmed By:VIRGINIA WORKMAN MD
--- NOTE | 2019-04-10 18:11 | PN ---
Physical Exam: SUBJECTIVE: Patient seen and examined. He is sedated and intubated. OBJECTIVE: Vital Signs Period Temp Pulse Resp BP Sys/Malcolm Pulse Ox Last 24 Hr 97.6 F-99.4 F 77-104 14-26 109-142/64-103 98-100 GENERAL: The patient is seated on vent, in no acute distress. LUNGS: Breath sounds equal, coarse, with scattered rhonchi. HEART: Regular rate and rhythm, S1, S2 without murmur, rub or gallop. ABDOMEN: Soft, nondistended, normoactive bowel sounds, no masses. EXTREMITIES: 2+ pulses, warm, well-perfused, no edema. Laboratory Results - last 24 hr 04/09/19 04/09/19 04/09/19 21:39 23:00 23:50 WBC Corrected WBC (auto) RBC Hgb Hct MCV MCH MCHC RDW Plt Count MPV Absolute Neuts (auto) Neutrophils % Lymphocytes % Monocytes % Eosinophils % Basophils % Nucleated RBC % Manual Slide Review Platelet Comment Anticoagulation Therapy No Puncture Site Right brachial ABG pH 7.40 ABG pCO2 at Pt Temp 35.6 ABG pO2 at Pt Temp 56.1 L ABG HCO3 21.7 L ABG O2 Sat (Measured) 88.0 L ABG O2 Content 15.3 ABG Base Excess -2.0 Lucien Test Positive O2 Delivery Device Vent Oxygen Flow Rate 40% Vent Mode A/c Vent Rate 14 Mechanical Rate No Result Required. PEEP 5.0 Pressure Support Vent 500 Sodium Potassium Chloride Carbon Dioxide Anion Gap BUN Creatinine Est GFR (CKD-EPI)AfAm Est GFR (CKD-EPI)NonAf POC Glucometer 96 100 Random Glucose Lactic Acid Calcium Phosphorus Magnesium Total Bilirubin AST ALT Alkaline Phosphatase Creatine Kinase Creatine Kinase Index CK-MB (CK-2) Total Protein Albumin TSH 04/10/19 04/10/19 04/10/19 00:40 00:40 00:40 WBC Cancelled Corrected WBC (auto) Cancelled RBC Cancelled Hgb Cancelled Hct Cancelled MCV Cancelled MCH Cancelled MCHC Cancelled RDW Cancelled Plt Count Cancelled MPV Cancelled Absolute Neuts (auto) Neutrophils % Lymphocytes % Monocytes % Eosinophils % Basophils % Nucleated RBC % Manual Slide Review Cancelled Platelet Comment Cancelled Anticoagulation Therapy Puncture Site ABG pH ABG pCO2 at Pt Temp ABG pO2 at Pt Temp ABG HCO3 ABG O2 Sat (Measured) ABG O2 Content ABG Base Excess Lucien Test O2 Delivery Device Oxygen Flow Rate Vent Mode Vent Rate Mechanical Rate PEEP Pressure Support Vent Sodium 139 Potassium 3.7 Chloride 109 H Carbon Dioxide 23 Anion Gap 7 L BUN 18 Creatinine 0.7 Est GFR (CKD-EPI)AfAm 137.78 Est GFR (CKD-EPI)NonAf 118.88 POC Glucometer Random Glucose 105 Lactic Acid 1.5 Calcium 8.2 L Phosphorus 3.7 Magnesium 2.2 Total Bilirubin 0.8 AST 26 ALT 29 Alkaline Phosphatase 59 Creatine Kinase Creatine Kinase Index CK-MB (CK-2) Total Protein 6.2 L Albumin 3.5 TSH 04/10/19 04/10/19 04/10/19 00:40 02:00 02:20 WBC 12.3 H Corrected WBC (auto) RBC 4.30 Hgb 12.6 Hct 36.9 MCV 85.8 MCH 29.3 MCHC 34.1 RDW 13.0 Plt Count 298 MPV 9.4 Absolute Neuts (auto) 8.9 H Neutrophils % 72.7 Lymphocytes % 19.2 D Monocytes % 6.3 Eosinophils % 1.4 Basophils % 0.4 Nucleated RBC % 0 Manual Slide Review Platelet Comment Anticoagulation Therapy Puncture Site ABG pH ABG pCO2 at Pt Temp ABG pO2 at Pt Temp ABG HCO3 ABG O2 Sat (Measured) ABG O2 Content ABG Base Excess Lucien Test O2 Delivery Device Oxygen Flow Rate Vent Mode Vent Rate Mechanical Rate PEEP Pressure Support Vent Sodium Potassium Chloride Carbon Dioxide Anion Gap BUN Creatinine Est GFR (CKD-EPI)AfAm Est GFR (CKD-EPI)NonAf POC Glucometer 127 Random Glucose Lactic Acid Calcium Phosphorus Magnesium Total Bilirubin AST ALT Alkaline Phosphatase Creatine Kinase 1052 H Creatine Kinase Index 0.1 CK-MB (CK-2) 1.7 Total Protein Albumin TSH 2.78 04/10/19 04/10/19 09:42 14:36 WBC Corrected WBC (auto) RBC Hgb Hct MCV MCH MCHC RDW Plt Count MPV Absolute Neuts (auto) Neutrophils % Lymphocytes % Monocytes % Eosinophils % Basophils % Nucleated RBC % Manual Slide Review Platelet Comment Anticoagulation Therapy Puncture Site ABG pH ABG pCO2 at Pt Temp ABG pO2 at Pt Temp ABG HCO3 ABG O2 Sat (Measured) ABG O2 Content ABG Base Excess Lucien Test O2 Delivery Device Oxygen Flow Rate Vent Mode Vent Rate Mechanical Rate PEEP Pressure Support Vent Sodium Potassium Chloride Carbon Dioxide Anion Gap BUN Creatinine Est GFR (CKD-EPI)AfAm Est GFR (CKD-EPI)NonAf POC Glucometer 104 95 Random Glucose Lactic Acid Calcium Phosphorus Magnesium Total Bilirubin AST ALT Alkaline Phosphatase Creatine Kinase Creatine Kinase Index CK-MB (CK-2) Total Protein Albumin TSH Active Medications Generic Name Dose Route Start Last Admin Trade Name Freq PRN Reason Stop Dose Admin Chlordiazepoxide HCl 20 mg 04/09/19 18:00 04/10/19 17:34 Librium - PO Not Given Q6HPO [facility] Heparin Sodium (Porcine) 5,000 unit 04/09/19 22:00 04/10/19 10:00 Heparin - SQ 5,000 unit BID [facility] Administration Sodium Chloride 1,000 mls @ 75 mls/hr 04/09/19 17:45 04/09/19 17:50 Normal Saline - IV 75 mls/hr ASDIR MEDINA Administration Propofol 1,000,000 mcg in 100 mls @ 2.844 mls/hr 04/09/19 23:00 04/10/19 06: 10 Diprivan - IVPB 45 mcg/kg/min TITR [facility] 25.596 mls/hr Titration Protocol 5 MCG/KG/MIN Midazolam HCl 100 mg/ Sodium 100 mls @ 1 mls/hr 04/09/19 23:45 04/10/19 10:30 Chloride IVPB 0 mg/hr TITR MEDINA 0 mls/hr Titration Protocol 1 MG/HR Lorazepam 2 mg 04/09/19 17:49 04/09/19 21:54 Ativan - PO 2 mg TID PRN Administration AGITATION Scopolamine HBr 1 patch 04/10/19 01:15 04/10/19 02:56 Transderm-Scop - TD 1 patch Q72H [facility] Administration Valproate Sodium 500 mg 04/10/19 10:00 04/10/19 10:01 Depacon Injection - IVPB 500 mg BID [facility] Administration ASSESSMENT/PLAN: This is a 38 year old man with a history of HTN, heroin use, Xanax use who presented to the ED from [facility] after a witnessed seizure. 1. Acute respiratory failure - Vent management as per ICU team 2. Status epilepticus - No further seizure activity noted - patient has been weaned off Versed and remains on Propofol - Continue Depacon, Librium, Ativan as needed 3. Benzodiazepine and heorin abuse with withdrawal. Appears to be calm at the moment. VS+ only for mild tachycardia. Not diaphoretic or anxious - Continue Librium 4. Leukocytosis - Possibly reactive - No evidence of infection 5. Elevated CK - Likely secondary to seizure 6. HTN Visit type - Emergency Visit Emergency Visit: Yes ED Registration Date: 04/10/19 Care time: The patient presented to the Emergency Department on the above date and was hospitalized for further evaluation of their emergent condition. - New Patient This patient is new to me today: Yes Date on this admission: 04/10/19 - Critical Care Critical Care patient: Yes Total Critical Care Time (in minutes): 35 Critical Care Statement: The care of this patient involved high complexity decision making to prevent further life threatening deterioration of the patient 's condition and/or to evaluate & treat vital organ system(s) failure or risk of failure. - Discharge Referral Referred to [facility] Med P.C.: No
[2019-04-10] MEDS: ACETAMINOPHEN 1000 MG/100 ML VIAL (NON FORMULARY) IVPB PRN (23:30)
[2019-04-10] MEDS: PROPOFOL 1,000,000 MCG/100 ML VIAL IVPB SCH (23:30)
[2019-04-11] MEDS: chlordiazePOXIDE HCL 10 MG CAPSULE PO SCH ×2 (00:16→06:31)
[2019-04-11] MEDS: MIDAZOLAM 100 MG in SODIUM CHLORIDE 100 ML IVPB SCH (00:17)
[2019-04-11 00:27] LABS: BASO % 0.2 % (0-2.0); EOS % 0.9 % (0-4.5); HEMATOCRIT 39.6 % (35.4-49); HEMOGLOBIN 13.4 GM/dL (11.7-16.9); LYMPH % 13.7 % (8-40); MCH 28.7 pg (25.7-33.7); MCHC 33.8 g/dl (32.0-35.9); MEAN CELL VOLUME 84.9 fl (80-96); MONO % 6.7 % (3.8-10.2); NEUT % 78.5 % (42.8-82.8); PLATELET COUNT 299 K/MM3 (134-434); RBC 4.67 M/mm3 (4.00-5.60); RDW 13.1 % (11.9-15.9)
[2019-04-11] MEDS: SODIUM CHLORIDE 1,000 ML IV SCH (00:31)
[2019-04-11 00:38] LABS: URINE APPEARANCE CLEAR; URINE BILIRUBIN NEGATIVE (NEGATIVE); URINE COLOR YELLOW; URINE GLUCOSE (UA) NEGATIVE (NEGATIVE); URINE KETONE TRACE (NEGATIVE); URINE LEUK ESTERASE NEGATIVE (NEGATIVE); URINE NITRITE NEGATIVE (NEGATIVE); URINE PROTEIN NEGATIVE (NEGATIVE); URINE UROBILINOGEN 0.2 mg/dL (0.2-1.0)
[2019-04-11] MEDS ORDERED: hydrALAZINE HCL 20 MG/ML VIAL IVPUSH ONE (05:16)
[2019-04-11] MEDS: ACETAMINOPHEN 1000 MG/100 ML VIAL (NON FORMULARY) IVPB PRN ×3 (05:54→22:40)
[2019-04-11] MEDS ORDERED: LORazepam 2 MG/ML SDV VIAL IVPUSH ONE (06:28)
[2019-04-11 06:37] LABS: BASO % 0.3 % (0-2.0); EOS % 1.9 % (0-4.5); HEMATOCRIT 37.7 % (35.4-49); HEMOGLOBIN 13.3 GM/dL (11.7-16.9); LYMPH % 16.5 % (8-40); MCH 29.7 pg (25.7-33.7); MCHC 35.3 g/dl (32.0-35.9); MEAN CELL VOLUME 84.1 fl (80-96); MONO % 8.1 % (3.8-10.2); NEUT % 73.2 % (42.8-82.8); PLATELET COUNT 297 K/MM3 (134-434); RBC 4.49 M/mm3 (4.00-5.60); RDW 13.1 % (11.9-15.9); WHITE BLOOD COUNT 15.9 K/mm3 (4.0-10.0)
[2019-04-11 06:57] LABS: ALBUMIN 3.7 g/dl (3.4-5.0); BILIRUBIN,TOTAL 0.9 mg/dL (0.2-1); CALCIUM 8.5 mg/dL (8.5-10.1); CREATININE 0.8 mg/dL (0.55-1.3); MAGNESIUM 2.3 mg/dL (1.8-2.4); POTASSIUM 3.5 mmol/L (3.5-5.1)
--- NOTE | 2019-04-11 08:31 | PN ---
Progress Note, Physician Chief Complaint: Patient is off sedation able to communicate History of Present Illness: 38 year old man with a history of HTN, heroin use, Xanax use who presented to the ED from [facility] after a witnessed seizure. Intubated on Vent - Current Medication List Current Medications: Active Medications Acetaminophen (Ofirmev Injection -) 1,000 mg IVPB Q6H PRN PRN Reason: PAIN OR FEVER Last Admin: 04/11/19 05:54 Dose: 1,000 mg Heparin Sodium (Porcine) (Heparin -) 5,000 unit SQ BID [facility] Last Admin: 04/10/19 21:10 Dose: 5,000 unit Propofol (Diprivan -) 1,000,000 mcg in 100 mls @ 2.844 mls/hr IVPB TITR [facility]; Protocol Last Admin: 04/10/19 23:30 Dose: Not Given Scopolamine HBr (Transderm-Scop -) 1 patch TD Q72H [facility] Last Admin: 04/10/19 02:56 Dose: 1 patch Valproate Sodium (Depacon Injection -) 500 mg IVPB BID [facility] Last Admin: 04/10/19 21:10 Dose: 500 mg - Objective Vital Signs: Vital Signs Temperature 99.2 F 04/11/19 07:29 Pulse Rate 96 H 04/11/19 07:29 Respiratory Rate 20 04/11/19 07:29 Blood Pressure 145/95 04/11/19 07:29 O2 Sat by Pulse Oximetry (%) 100 04/11/19 07:29 Young man not in distress on vent off sedation following commands HEENT: Mm moist, no anemia, PERRLA, EOMI NECK: No JVD No Bruit, ETT at place NECK: No JVd No Bruit CHEST: CTA B/L CVS; S1S2 R ABD: No distention, non tender Bs + EXT: No edema feet, SAP BI ARCHITECT non focal alert following commands Labs: CBC, BMP 04/11/19 05:30 04/11/19 05:30 Problem List - Problems (1) Seizure Assessment/Plan: on Valprpic acid and pRN Lorazepalm, remained seizures free Code(s): R56.9 - UNSPECIFIED CONVULSIONS (2) Sedative hypnotic or anxiolytic dependence Code(s): F13.20 - SEDATIVE, HYPNOTIC OR ANXIOLYTIC DEPENDENCE, UNCOMPLICATED (3) Opioid dependence with withdrawal Assessment/Plan: observe clinically Code(s): F11.23 - OPIOID DEPENDENCE WITH WITHDRAWAL (4) HTN (hypertension) Assessment/Plan: Well controlled on current meds Code(s): I10 - ESSENTIAL (PRIMARY) HYPERTENSION (5) Respiratory failure Assessment/Plan: S/P intubation possible extubation today Code(s): J96.90 - RESPIRATORY FAILURE, UNSP, UNSP W HYPOXIA OR HYPERCAPNIA
[2019-04-11] MEDS ORDERED: ONDANSETRON 4 MG/2 ML VIAL IVPUSH ONE (08:59)
[2019-04-11] MEDS ORDERED: ONDANSETRON 4 MG/2 ML VIAL ONE (09:00)
[2019-04-11] MEDS: HEPARIN NA (PORCINE) 5,000 UNITS/ML 1ML VIAL SQ SCH ×2 (09:21→21:46)
[2019-04-11] MEDS: VALPROATE SODIUM 500 MG/5 ML VIAL IVPB SCH ×2 (09:21→21:46)
[2019-04-11] MEDS ORDERED: LORazepam 2 MG/ML SDV VIAL ONE (10:48)
--- NOTE | 2019-04-11 10:51 | PN ---
Teaching Attending Note Name of Resident: Luis Yan ATTENDING PHYSICIAN STATEMENT I saw and evaluated the patient. I reviewed the resident's note and discussed the case with the resident. I agree with the resident's findings and plan as documented. SUBJECTIVE: Pt seen and examined in the ICU. Intubated, awake off sedation following commands. Tolerating CPAP/PS with good RSBI and subsequently extubated during rounds. Shortly after extubation, possible seizure activity. OBJECTIVE: Vital Signs Period Temp Pulse Resp BP Sys/Malcolm Pulse Ox Last 24 Hr 97.6 F-100.6 F 77-113 16-26 123-163/76-106 100-100 Intake & Output 04/08/19 04/09/19 04/10/19 04/11/19 23:59 23:59 23:59 23:59 Intake Total 2264 893 Output Total 750 900 Balance 1514 -7 Weight 94.801 kg 97.069 kg 98.52 kg Gen: extubated Heart: RRR Lung: decreased breath sounds at the bases Abd: soft, nontender Ext: no edema CBC, BMP 04/11/19 05:30 04/11/19 05:30 Active Medications Acetaminophen (Ofirmev Injection -) 1,000 mg IVPB Q6H PRN PRN Reason: PAIN OR FEVER Last Admin: 04/11/19 05:54 Dose: 1,000 mg Heparin Sodium (Porcine) (Heparin -) 5,000 unit SQ BID [facility] Last Admin: 04/11/19 09:21 Dose: 5,000 unit Propofol (Diprivan -) 1,000,000 mcg in 100 mls @ 2.844 mls/hr IVPB TITR [facility]; Protocol Last Titration: 04/11/19 07:30 Dose: 0 mcg/kg/min, 0 mls/hr Scopolamine HBr (Transderm-Scop -) 1 patch TD Q72H [facility] Last Admin: 04/10/19 02:56 Dose: 1 patch Valproate Sodium (Depacon Injection -) 500 mg IVPB BID [facility] Last Admin: 04/11/19 09:21 Dose: 500 mg ASSESSMENT AND PLAN: s/p Acute Respiratory Failure Status Epilepticus Polysubstance Abuse HTN - ativan now - titrate antiepileptics - aspiration precautions - O2 to keep SpO2 >90% - DVT prophylaxis - continue ICU monitoring critical care time spent in reviewing chart, evaluating patient and formulating plan 35 min
--- NOTE | 2019-04-11 14:42 | PN ---
Progress Note, Physician History of Present Illness: extubated this morning. had 1 witnessed seizure about 1 hour after extubation. gave ativan. saturating well and mentation improving after extubation. - Current Medication List Current Medications: Active Medications Acetaminophen (Ofirmev Injection -) 1,000 mg IVPB Q6H PRN PRN Reason: PAIN OR FEVER Last Admin: 04/11/19 13:03 Dose: 1,000 mg Heparin Sodium (Porcine) (Heparin -) 5,000 unit SQ BID [facility] Last Admin: 04/11/19 09:21 Dose: 5,000 unit Propofol (Diprivan -) 1,000,000 mcg in 100 mls @ 2.844 mls/hr IVPB TITR [facility]; Protocol Last Titration: 04/11/19 07:30 Dose: 0 mcg/kg/min, 0 mls/hr Lorazepam (Ativan Injection -) 2 mg IVPUSH Q6H PRN PRN Reason: WITHDRAWAL(CONT SUBST) Scopolamine HBr (Transderm-Scop -) 1 patch TD Q72H [facility] Last Admin: 04/10/19 02:56 Dose: 1 patch Valproate Sodium (Depacon Injection -) 500 mg IVPB BID [facility] Last Admin: 04/11/19 09:21 Dose: 500 mg - Objective Vital Signs: Vital Signs Temperature 98.3 F 04/11/19 14:00 Pulse Rate 106 H 04/11/19 14:00 Respiratory Rate 15 04/11/19 14:00 Blood Pressure 120/62 04/11/19 14:00 O2 Sat by Pulse Oximetry (%) 100 04/11/19 07:29 Constitutional: No: Mild Distress Cardiovascular: Yes: Regular Rate and Rhythm, S1, S2 Respiratory: Yes: CTA Bilaterally Gastrointestinal: Yes: Normal Bowel Sounds, Soft Neurological: Yes: Alert, Oriented, Seizure, Unsteady Gait Labs: CBC, BMP 04/11/19 05:30 04/11/19 05:30 Impression/Plan Impression/Plan: 38 yo M h/o HTN, heroin use and Xanax use brought in to the ICU for status epilepticus. Pulm: extubated - saturating well on room air Neuro: off sedation, seizure disorder, benzo withdrawal - patient appears mildly delirious - restraints PRN - seizure and fall precautions - Continue Depacon - Ativan as needeed ID: lLeukocytosis - reactive, monitor off abx FEN - no fluid indicated - replete electrolytes as needed - NPO for now awaiting mental status improves Dispo - Will monitor the pt overnight for further seizure activity, transfer to floors tomorrow Luis Yan MD ICU resident Visit type - Emergency Visit Emergency Visit: No - New Patient This patient is new to me today: No - Critical Care Critical Care patient: Yes Total Critical Care Time (in minutes): 35 Critical Care Statement: The care of this patient involved high complexity decision making to prevent further life threatening deterioration of the patient 's condition and/or to evaluate & treat vital organ system(s) failure or risk of failure.
[2019-04-11] MEDS: LORazepam 2 MG/ML SDV VIAL IVPUSH PRN (21:54)
[2019-04-11] MEDS ORDERED: MIDAZOLAM HCL 2 MG/2 ML SINGLE DOSE VIAL ONE (22:02)
[2019-04-11] MEDS ORDERED: MIDAZOLAM HCL 2 MG/2 ML SINGLE DOSE VIAL IVPUSH ONE (22:14)
--- NOTE | 2019-04-11 22:27 | HOSP ---
Subjective - Review of Symptoms Events since last encounter: 1. Informed by micro that patient has 1/4 bottles blood culture +ve for gram+ cocci in cluster, unknown coagulase status, likely to be contaminant. Patient's afebrile and leukocytosis likely reactive. Will monitor off abx 2. Patient had a witnessed seizure from 9:52 to 10pm. Tachycardic but rest of vitals remain stable. 1st dose of Ativan 2mg IVPUSH given which failed to abort the seizure. Gave 2mg of versed IVPUSH which successfully stopped the seizure. Patient regained consciousness immediately and did not recall what happened prior and during the seizure activity. Cont. to monitor the patient. Send urine tox and alcohol level for completeness and possible evidence of other substance abuse. Will max out on ativan before dilantin loading if patient has another seizure. Physical Examination Vital Signs: Vital Signs Temperature 98.3 F 04/11/19 14:00 Pulse Rate 98 H 04/11/19 16:00 Respiratory Rate 21 H 04/11/19 16:00 Blood Pressure 114/76 04/11/19 16:00 O2 Sat by Pulse Oximetry (%) 100 04/11/19 07:29 Labs: CBC, BMP 04/11/19 05:30 04/11/19 05:30 Visit type - Emergency Visit Emergency Visit: No - New Patient This patient is new to me today: No - Critical Care Critical Care patient: Yes Total Critical Care Time (in minutes): 35 Critical Care Statement: The care of this patient involved high complexity decision making to prevent further life threatening deterioration of the patient 's condition and/or to evaluate & treat vital organ system(s) failure or risk of failure.
[2019-04-12 00:52] LABS: COCAINE, UR NEGATIVE ng/ml (CUTOFF=300); OPIATES, URI NEGATIVE ng/ml (CUTOFF=300); PHENCYCLIDINE,URINE NEGATIVE ng/ml (CUTOFF=25); URINE AMPHETAMINES NEGATIVE ng/ml (CUTOFF=500)
[2019-04-12 00:54] LABS: URINE BARBITURATES POSITIVE ng/ml (CUTOFF=200)
[2019-04-12 00:55] LABS: METHADONE, UR POSITIVE ng/ml (CUTOFF=300); URINE BENZODIAZEPINES POSITIVE ng/ml (CUTOFF=200)
[2019-04-12 06:50] LABS: BASO % 0.4 % (0-2.0); EOS % 5.5 % (0-4.5); HEMATOCRIT 34.8 % (35.4-49); HEMOGLOBIN 12.4 GM/dL (11.7-16.9); LYMPH % 19.6 % (8-40); MCH 29.8 pg (25.7-33.7); MCHC 35.6 g/dl (32.0-35.9); MEAN CELL VOLUME 83.8 fl (80-96); MEAN PLT VOLUME 8.8 fl (7.5-11.1); MONO % 8.2 % (3.8-10.2); NEUT % 66.3 % (42.8-82.8); PLATELET COUNT 271 K/MM3 (134-434); RBC 4.15 M/mm3 (4.00-5.60); RDW 13.2 % (11.9-15.9); WHITE BLOOD COUNT 11.4 K/mm3 (4.0-10.0)
[2019-04-12 07:19] LABS: ALBUMIN 3.6 g/dl (3.4-5.0); BILIRUBIN,TOTAL 1.6 mg/dL (0.2-1); CALCIUM 8.8 mg/dL (8.5-10.1); CREATININE 0.8 mg/dL (0.55-1.3); MAGNESIUM 2.3 mg/dL (1.8-2.4); POTASSIUM 3.3 mmol/L (3.5-5.1)
--- NOTE | 2019-04-12 07:37 | PN ---
Physical Exam: SUBJECTIVE: Patient seen and examined at bedside. Had 7 min grand mal seizure overnight around 2150 Ativan 2mg did not break seizure, 2mg Versed did. Pt states he feels tired and has body aches. OBJECTIVE: Vital Signs Period Temp Pulse Resp BP Sys/Malcolm Pulse Ox Last 24 Hr 98.3 F-101 F 90-120 15-25 93-150/56-107 GENERAL: The patient is awake, alert, and fully oriented, in no acute distress. EYES: PERRL, extraocular movements intact, sclera anicteric, conjunctiva clear. No ptosis. LUNGS: Breath sounds equal, clear to auscultation bilaterally, no wheezes, no crackles, no accessory muscle use. HEART: Regular rate and rhythm, S1, S2 without murmur, rub or gallop. ABDOMEN: Soft, nontender, nondistended, normoactive bowel sounds, no guarding, no rebound, no hepatosplenomegaly, no masses. EXTREMITIES: 2+ pulses, warm, well-perfused, no edema. NEUROLOGICAL: Cranial nerves II through XII grossly intact. Normal speech, gait not observed. PSYCH: Normal mood, normal affect. SKIN: Warm, dry, normal turgor, no rashes or lesions noted Laboratory Results - last 24 hr 04/11/19 04/11/19 04/12/19 05:30 23:00 05:30 WBC 11.4 H RBC 4.15 Hgb 12.4 Hct 34.8 L MCV 83.8 MCH 29.8 MCHC 35.6 RDW 13.2 Plt Count 271 MPV 8.8 Absolute Neuts (auto) 7.6 Neutrophils % 66.3 Lymphocytes % 19.6 Monocytes % 8.2 Eosinophils % 5.5 H D Basophils % 0.4 Nucleated RBC % 0 Sodium Potassium Chloride Carbon Dioxide Anion Gap BUN Creatinine Est GFR (CKD-EPI)AfAm Est GFR (CKD-EPI)NonAf Random Glucose Calcium Magnesium Total Bilirubin AST ALT Alkaline Phosphatase Creatine Kinase Index 0.2 CK-MB (CK-2) < 1.0 Total Protein Albumin Opiates Screen Negative Methadone Screen Positive A* Barbiturate Screen Positive A* Valproic Acid Phencyclidine Screen Negative Ur Amphetamines Screen Negative MDMA (Ecstasy) Screen Negative Benzodiazepines Screen Positive A* Cocaine Screen Negative U Marijuana (THC) Screen Negative Alcohol, Quantitative 04/12/19 04/12/19 04/12/19 05:30 05:30 05:30 WBC RBC Hgb Hct MCV MCH MCHC RDW Plt Count MPV Absolute Neuts (auto) Neutrophils % Lymphocytes % Monocytes % Eosinophils % Basophils % Nucleated RBC % Sodium 141 Potassium 3.3 L Chloride 106 Carbon Dioxide 26 Anion Gap 9 BUN 11 Creatinine 0.8 Est GFR (CKD-EPI)AfAm 130.42 Est GFR (CKD-EPI)NonAf 112.53 Random Glucose 91 Calcium 8.8 Magnesium 2.3 Total Bilirubin 1.6 H AST 32 ALT 27 Alkaline Phosphatase 70 Creatine Kinase Index CK-MB (CK-2) Total Protein 7.0 Albumin 3.6 Opiates Screen Methadone Screen Barbiturate Screen Valproic Acid 77.0 Phencyclidine Screen Ur Amphetamines Screen MDMA (Ecstasy) Screen Benzodiazepines Screen Cocaine Screen U Marijuana (THC) Screen Alcohol, Quantitative < 3.0 Active Medications Generic Name Dose Route Start Last Admin Trade Name Freq PRN Reason Stop Dose Admin Heparin Sodium (Porcine) 5,000 unit 04/09/19 22:00 04/11/19 21:46 Heparin - SQ 5,000 unit BID [facility] Administration Lorazepam 2 mg 04/11/19 10:48 04/11/19 21:54 Ativan Injection - IVPUSH 2 mg Q6H PRN Administration WITHDRAWAL(CONT SUBST) Scopolamine HBr 1 patch 04/10/19 01:15 04/10/19 02:56 Transderm-Scop - TD 1 patch Q72H [facility] Administration Valproate Sodium 500 mg 04/10/19 10:00 04/11/19 21:46 Depacon Injection - IVPB 500 mg BID [facility] Administration ASSESSMENT/PLAN: 38yo M with PMH of Opioid Dependence, Benzodiazepine Dependence, HLD brought to ICU for status epilepticus NEURO -Seizure disorder, BZ withdrawal -Grand mal seizure overnight, aborted by Versed -Neurology consulted (Dr. Briones) -Seizure and fall precautions -Increase valporate to 750mg BID -Recheck depakote levels -Ativan PRN for breakthrough seizures ENDO -K 3.2, will replete -Trend lytes PULM -Extubated, saturating well on RA -PO2>90% -Febrile this AM to 100.0 -Ceftriaxone for possible aspiration ID -Leukocytosis, likely reactive v. aspiration. Trending down -Febrile this AM 100.0 -Ceftriaxone -Trend FEN -No fluid indicated -replete electrolytes as needed PROPHYLAXIS -Heparin sc -SCD Dispo Will monitor in ICU Visit type - Emergency Visit Emergency Visit: Yes ED Registration Date: 04/10/19 Care time: The patient presented to the Emergency Department on the above date and was hospitalized for further evaluation of their emergent condition. - New Patient This patient is new to me today: No - Critical Care Critical Care patient: Yes Total Critical Care Time (in minutes): 40 Critical Care Statement: The care of this patient involved high complexity decision making to prevent further life threatening deterioration of the patient 's condition and/or to evaluate & treat vital organ system(s) failure or risk of failure.
[2019-04-12] MEDS: VALPROATE SODIUM 500 MG/5 ML VIAL IVPB SCH ×2 (09:14→21:03)
[2019-04-12] MEDS: HEPARIN NA (PORCINE) 5,000 UNITS/ML 1ML VIAL SQ SCH ×2 (10:22→21:03)
--- NOTE | 2019-04-12 10:29 | PN ---
Teaching Attending Note Name of Resident: Alana Redding ATTENDING PHYSICIAN STATEMENT I saw and evaluated the patient. I reviewed the resident's note and discussed the case with the resident. I agree with the resident's findings and plan as documented. SUBJECTIVE: Pt seen and examined in the ICU. Seizure episode overnight requiring versed IVP. Feels tired today with body aches. Febrile overnight. OBJECTIVE: Vital Signs Period Temp Pulse Resp BP Sys/Malcolm Pulse Ox Last 24 Hr 98.3 F-101 F 90-120 15-25 93-139/56-107 99-99 Intake & Output 04/09/19 04/10/19 04/11/19 04/12/19 23:59 23:59 23:59 23:59 Intake Total 2264 1093 400 Output Total 750 2450 250 Balance 1514 -1357 150 Weight 94.801 kg 97.069 kg 98.43 kg Gen: NAD at rest Heart: RRR Lung: decreased breath sounds at the bases Abd: soft, nontender Ext: no edema CBC, BMP 04/12/19 05:30 04/12/19 05:30 Active Medications Heparin Sodium (Porcine) (Heparin -) 5,000 unit SQ BID [facility] Last Admin: 04/12/19 10:22 Dose: 5,000 unit Lorazepam (Ativan Injection -) 2 mg IVPUSH Q6H PRN PRN Reason: WITHDRAWAL(CONT SUBST) Last Admin: 04/11/19 21:54 Dose: 2 mg Scopolamine HBr (Transderm-Scop -) 1 patch TD Q72H [facility] Last Admin: 04/10/19 02:56 Dose: 1 patch Valproate Sodium (Depacon Injection -) 500 mg IVPB BID [facility] Last Admin: 04/12/19 09:14 Dose: 500 mg ASSESSMENT AND PLAN: s/p Acute Respiratory Failure Status Epilepticus Polysubstance Abuse HTN - neuro f/u - titrate antiepileptics - aspiration precautions - start empiric antibiotics for possible aspiration - O2 to keep SpO2 >90% - DVT prophylaxis - continue ICU monitoring
[2019-04-12] MEDS ORDERED: CEFTRIAXONE 1 GM in DEXTROSE 5%-WATER - 50 ML IVPB ONE (10:37)
[2019-04-12] MEDS ORDERED: POTASSIUM CHLORIDE ORAL LIQUID 20 MEQ/15 ML PO ONE (10:43)
[2019-04-12] MEDS: SODIUM CHLORIDE 1,000 ML IV SCH ×2 (10:56→17:45)
[2019-04-12] MEDS ORDERED: DEXTROSE 5%-WATER - 50 ML IVPB ONE (10:57)
[2019-04-12] MEDS ORDERED: cefTRIAXone SODIUM 1 GM VIAL ONE (10:57)
[2019-04-12] MEDS ORDERED: SODIUM CHLORIDE 1,000 ML IV SCH (11:00)
[2019-04-12] MEDS ORDERED: PHENOL 177 ML SPRAY BOTTLE MM PRN (12:40)
--- NOTE | 2019-04-12 13:33 | PN ---
Physical Exam: SUBJECTIVE: Patient seen and examined. He complains of a sore throat and difficulty swallowing. He had a seizure overnight which did not respond to Ativan, and stopped after Versed. OBJECTIVE: Vital Signs Period Temp Pulse Resp BP Sys/Malcolm Pulse Ox Last 24 Hr 98.3 F-101 F 90-120 15-25 93-131/56-107 99-99 GENERAL: The patient is awake, alert, and fully oriented, in no acute distress. HEENT: Pharynx clear LUNGS: Breath sounds equal, clear to auscultation bilaterally, no wheezes, no crackles, no accessory muscle use. HEART: Regular rate and rhythm, S1, S2 without murmur, rub or gallop. ABDOMEN: Soft, nontender, nondistended, normoactive bowel sounds, no guarding, no rebound, no hepatosplenomegaly, no masses. EXTREMITIES: 2+ pulses, warm, well-perfused, no edema. Laboratory Results - last 24 hr 04/11/19 04/12/19 04/12/19 23:00 05:30 05:30 WBC 11.4 H RBC 4.15 Hgb 12.4 Hct 34.8 L MCV 83.8 MCH 29.8 MCHC 35.6 RDW 13.2 Plt Count 271 MPV 8.8 Absolute Neuts (auto) 7.6 Neutrophils % 66.3 Lymphocytes % 19.6 Monocytes % 8.2 Eosinophils % 5.5 H D Basophils % 0.4 Nucleated RBC % 0 Sodium 141 Potassium 3.3 L Chloride 106 Carbon Dioxide 26 Anion Gap 9 BUN 11 Creatinine 0.8 Est GFR (CKD-EPI)AfAm 130.42 Est GFR (CKD-EPI)NonAf 112.53 POC Glucometer Random Glucose 91 Calcium 8.8 Magnesium 2.3 Total Bilirubin 1.6 H AST 32 ALT 27 Alkaline Phosphatase 70 Total Protein 7.0 Albumin 3.6 Opiates Screen Negative Methadone Screen Positive A* Barbiturate Screen Positive A* Valproic Acid Phencyclidine Screen Negative Ur Amphetamines Screen Negative MDMA (Ecstasy) Screen Negative Benzodiazepines Screen Positive A* Cocaine Screen Negative U Marijuana (THC) Screen Negative Alcohol, Quantitative 04/12/19 04/12/19 04/12/19 05:30 05:30 12:53 WBC RBC Hgb Hct MCV MCH MCHC RDW Plt Count MPV Absolute Neuts (auto) Neutrophils % Lymphocytes % Monocytes % Eosinophils % Basophils % Nucleated RBC % Sodium Potassium Chloride Carbon Dioxide Anion Gap BUN Creatinine Est GFR (CKD-EPI)AfAm Est GFR (CKD-EPI)NonAf POC Glucometer Random Glucose Calcium Magnesium Total Bilirubin AST ALT Alkaline Phosphatase Total Protein Albumin Opiates Screen Methadone Screen Barbiturate Screen Valproic Acid 77.0 87.9 Phencyclidine Screen Ur Amphetamines Screen MDMA (Ecstasy) Screen Benzodiazepines Screen Cocaine Screen U Marijuana (THC) Screen Alcohol, Quantitative < 3.0 04/12/19 13:18 WBC RBC Hgb Hct MCV MCH MCHC RDW Plt Count MPV Absolute Neuts (auto) Neutrophils % Lymphocytes % Monocytes % Eosinophils % Basophils % Nucleated RBC % Sodium Potassium Chloride Carbon Dioxide Anion Gap BUN Creatinine Est GFR (CKD-EPI)AfAm Est GFR (CKD-EPI)NonAf POC Glucometer 120 Random Glucose Calcium Magnesium Total Bilirubin AST ALT Alkaline Phosphatase Total Protein Albumin Opiates Screen Methadone Screen Barbiturate Screen Valproic Acid Phencyclidine Screen Ur Amphetamines Screen MDMA (Ecstasy) Screen Benzodiazepines Screen Cocaine Screen U Marijuana (THC) Screen Alcohol, Quantitative Active Medications Generic Name Dose Route Start Last Admin Trade Name Freq PRN Reason Stop Dose Admin Heparin Sodium (Porcine) 5,000 unit 04/09/19 22:00 04/12/19 10:22 Heparin - SQ 5,000 unit BID MEDINA Administration Sodium Chloride 1,000 mls @ 150 mls/hr 04/12/19 11:00 04/12/19 10:56 Normal Saline - IV 150 mls/hr ASDIR MEDINA Administration Lorazepam 2 mg 04/11/19 10:48 04/11/19 21:54 Ativan Injection - IVPUSH 2 mg Q6H PRN Administration WITHDRAWAL(CONT SUBST) Phenol/Menthol 1 spray 04/12/19 12:40 Chloraseptic - MM Q6HPO PRN SORE THROAT Scopolamine HBr 1 patch 04/10/19 01:15 04/10/19 02:56 Transderm-Scop - TD 1 patch Q72H MEDINA Administration Valproate Sodium 750 mg 04/12/19 11:54 Depacon Injection - IVPB BID MEDINA ASSESSMENT/PLAN: This is a 38 year old man with a history of HTN, heroin use, Xanax use who presented to the ED from [facility] after a witnessed seizure. 1. Acute respiratory failure - Extubated yesterday 2. Status epilepticus - Resolved 3. Seizures - Depacon increased as patient had seizure overnight 4. Benzodiazepine and heorin abuse with withdrawal 5. Leukocytosis - Improving - Likely reactive - Coagulase negative Staph growing in one of 2 cultures, likely contaminant - ceftriaxone x1 dose given 6. Elevated CK - Likely secondary to seizure 7. HTN - BP is good on no medication Visit type - Emergency Visit Emergency Visit: Yes ED Registration Date: 04/10/19 Care time: The patient presented to the Emergency Department on the above date and was hospitalized for further evaluation of their emergent condition. - New Patient This patient is new to me today: No - Critical Care Critical Care patient: No - Discharge Referral Referred to [facility] No
[2019-04-12] MEDS ORDERED: MIDAZOLAM HCL 5 MG/1 ML Single Dose Vial ONE (15:00)
[2019-04-12] MEDS: LORazepam 2 MG/ML SDV VIAL IVPUSH PRN (15:04)
[2019-04-12] MEDS ORDERED: MIDAZOLAM HCL 5 MG/1 ML Single Dose Vial IVPUSH ONE (15:11)
--- NOTE | 2019-04-12 15:16 | HOSP ---
Subjective - Review of Symptoms General: Yes: Fatigue. No: Chills, Night Sweats Neurological: Yes: Seizures Physical Examination Vital Signs: Vital Signs Temperature 98.6 F 04/12/19 14:00 Pulse Rate 94 H 04/12/19 14:00 Respiratory Rate 18 04/12/19 14:00 Blood Pressure 124/83 04/12/19 14:00 O2 Sat by Pulse Oximetry (%) 99 04/12/19 08:00 Constitutional: Yes: Other (seizing) Eyes: Yes: PERRL Cardiovascular: Yes: Tachycardia Neurological: Yes: Seizure Labs: CBC, BMP 04/12/19 05:30 04/12/19 05:30 Hospitalist Encounter Assessment: Nursing staff noticed patient seizing at 1458. Pt was given 2.5mg Versed, pt seemed to wake up but seizures resumed. Another 2.5mg Versed given. Pt continued to have tonic/clonic seizure like activity. 2mg Ativan given and seizures stopped at 1506. Seizures for a total of 8 minutes. Increasing Keppra dose to 750mg BID this evening. Patient woke up and felt tired. States he sometimes feels dizzy and vision blacks out prior to seizures. Complaining of headache. HR went up tp 140s, BP elevated and O2 saturations remained normal. Visit type - Emergency Visit Emergency Visit: Yes ED Registration Date: 04/10/19 Care time: The patient presented to the Emergency Department on the above date and was hospitalized for further evaluation of their emergent condition. - New Patient This patient is new to me today: No - Critical Care Critical Care patient: Yes Total Critical Care Time (in minutes): 30 Critical Care Statement: The care of this patient involved high complexity decision making to prevent further life threatening deterioration of the patient 's condition and/or to evaluate & treat vital organ system(s) failure or risk of failure.
[2019-04-12] MEDS ORDERED: MELATONIN 5 MG TABLETS PO ONE (21:40)
[2019-04-13] MEDS: SCOPOLAMINE HYDROBROMIDE 1 PATCH PATCH.TD72 TD SCH ×2 (00:43→21:48)
[2019-04-13] MEDS: SODIUM CHLORIDE 1,000 ML IV SCH ×2 (02:47→18:00)
[2019-04-13 06:30] LABS: BASO % 0.5 % (0-2.0); EOS % 7.5 % (0-4.5); HEMATOCRIT 32.5 % (35.4-49); HEMOGLOBIN 11.5 GM/dL (11.7-16.9); LYMPH % 31.3 % (8-40); MCH 29.7 pg (25.7-33.7); MCHC 35.5 g/dl (32.0-35.9); MEAN CELL VOLUME 83.8 fl (80-96); MEAN PLT VOLUME 8.7 fl (7.5-11.1); MONO % 7.5 % (3.8-10.2); NEUT % 53.2 % (42.8-82.8); PLATELET COUNT 258 K/MM3 (134-434); RBC 3.88 M/mm3 (4.00-5.60); RDW 13.3 % (11.9-15.9)
[2019-04-13 07:11] LABS: ALBUMIN 3.1 g/dl (3.4-5.0); BILIRUBIN,TOTAL 0.8 mg/dL (0.2-1); CALCIUM 8.4 mg/dL (8.5-10.1); CREATININE 0.6 mg/dL (0.55-1.3); MAGNESIUM 2.3 mg/dL (1.8-2.4); PHOSPHOROUS 4.6 mg/dL (2.5-4.9); POTASSIUM 3.3 mmol/L (3.5-5.1)
--- NOTE | 2019-04-13 07:56 | PN ---
Physical Exam: SUBJECTIVE: Patient seen and examined at bedside. No seizures overnight. Pt stated that he has more urges to use the restroom. At approximately 0855 pt started to have another grand mal seizure. He was given a total of 4mg Ativan, 11mg Versed which did not break the seizure. Pt still continuing to seize for a total of 30 minutes, decision to intubate to protect airway was made. Anesthesiology responded to page, pt intubated 0924 with succinylcholine and propofol. Pt placed on Versed and propofol drip. OBJECTIVE: exam prior to intubation Vital Signs Period Temp Pulse Resp BP Sys/Malcolm Pulse Ox Last 24 Hr 98.2 F-99.3 F 78-100 15-20 105-125/57-83 97-99 GENERAL: The patient is awake, alert, and fully oriented, in no acute distress. EYES: PERRL, extraocular movements intact, sclera anicteric, conjunctiva clear. No ptosis. LUNGS: Breath sounds equal, clear to auscultation bilaterally, no wheezes, no crackles, no accessory muscle use. HEART: Regular rate and rhythm, S1, S2 without murmur, rub or gallop. ABDOMEN: Soft, nontender, nondistended, normoactive bowel sounds, no guarding, no rebound, no hepatosplenomegaly, no masses. EXTREMITIES: 2+ pulses, warm, well-perfused, no edema. NEUROLOGICAL: Cranial nerves II through XII grossly intact. Normal speech, gait not observed. PSYCH: Normal mood, normal affect. SKIN: Warm, dry, normal turgor, no rashes or lesions noted Laboratory Results - last 24 hr 04/12/19 04/12/19 04/13/19 12:53 13:18 05:30 WBC 8.0 RBC 3.88 L Hgb 11.5 L Hct 32.5 L MCV 83.8 MCH 29.7 MCHC 35.5 RDW 13.3 Plt Count 258 MPV 8.7 Absolute Neuts (auto) 4.2 Neutrophils % 53.2 Lymphocytes % 31.3 D Monocytes % 7.5 Eosinophils % 7.5 H Basophils % 0.5 Nucleated RBC % 0 Sodium Potassium Chloride Carbon Dioxide Anion Gap BUN Creatinine Est GFR (CKD-EPI)AfAm Est GFR (CKD-EPI)NonAf POC Glucometer 120 Random Glucose Calcium Phosphorus Magnesium Total Bilirubin AST ALT Alkaline Phosphatase Total Protein Albumin Valproic Acid 87.9 04/13/19 05:30 WBC RBC Hgb Hct MCV MCH MCHC RDW Plt Count MPV Absolute Neuts (auto) Neutrophils % Lymphocytes % Monocytes % Eosinophils % Basophils % Nucleated RBC % Sodium 141 Potassium 3.3 L Chloride 108 H Carbon Dioxide 24 Anion Gap 8 BUN 8 Creatinine 0.6 Est GFR (CKD-EPI)AfAm 146.79 Est GFR (CKD-EPI)NonAf 126.65 POC Glucometer Random Glucose 77 Calcium 8.4 L Phosphorus 4.6 Magnesium 2.3 Total Bilirubin 0.8 AST 23 ALT 22 Alkaline Phosphatase 54 Total Protein 6.0 L Albumin 3.1 L Valproic Acid Active Medications Generic Name Dose Route Start Last Admin Trade Name Freq PRN Reason Stop Dose Admin Heparin Sodium (Porcine) 5,000 unit 04/09/19 22:00 04/12/19 21:03 Heparin - SQ 5,000 unit BID MEDINA Administration Sodium Chloride 1,000 mls @ 150 mls/hr 04/12/19 11:00 04/13/19 02:47 Normal Saline - IV 150 mls/hr ASDIR MEDINA Administration Lorazepam 2 mg 04/11/19 10:48 04/12/19 15:04 Ativan Injection - IVPUSH 2 mg Q6H PRN Administration WITHDRAWAL(CONT SUBST) Phenol/Menthol 1 spray 04/12/19 12:40 04/12/19 13:26 Chloraseptic - MM 1 spray Q6HPO PRN Administration SORE THROAT Scopolamine HBr 1 patch 04/10/19 01:15 04/13/19 00:43 Transderm-Scop - TD Not Given Q72H [facility] Valproate Sodium 750 mg 04/12/19 11:54 04/12/19 21:03 Depacon Injection - IVPB 750 mg BID MEDINA Administration ASSESSMENT/PLAN: 38yo M with PMH of Opioid Dependence, Benzodiazepine Dependence, HLD brought to ICU for status epilepticus NEURO -Seizure disorder, BZ withdrawal -Neurology consulted (Dr. Briones) -Seizure and fall precautions -Depacon 750mg BID -Adding Keppra 500 BID, no loading dose per neurology -Intubated and sedated with Versed and propofol gtt -Ativan PRN for breakthrough seizures ENDO -K 3.3, will replete -Trend lytes PULM -Intubated -Vent settings: 16/450/50/5 -Ceftriaxone for possible aspiration -SpO2>90% ID -Leukocytosis, likely reactive v. aspiration. Trending down -Trend HEME -Hgb trending down since admission to hospital FEN -replete electrolytes as needed -IV fluids PROPHYLAXIS -Heparin sc -SCD Dispo Will monitor in ICU Visit type - Emergency Visit Emergency Visit: Yes ED Registration Date: 04/10/19 Care time: The patient presented to the Emergency Department on the above date and was hospitalized for further evaluation of their emergent condition. - New Patient This patient is new to me today: No - Critical Care Critical Care patient: Yes Total Critical Care Time (in minutes): 40 Critical Care Statement: The care of this patient involved high complexity decision making to prevent further life threatening deterioration of the patient 's condition and/or to evaluate & treat vital organ system(s) failure or risk of failure.
[2019-04-13] MEDS: LORazepam 2 MG/ML SDV VIAL IVPUSH PRN (08:55)
[2019-04-13] MEDS ORDERED: MIDAZOLAM HCL 2 MG/2 ML SINGLE DOSE VIAL ONE (09:01)
[2019-04-13] MEDS ORDERED: MIDAZOLAM HCL 2 MG/2 ML SINGLE DOSE VIAL IVPUSH ONE ×2 (09:05→09:29)
[2019-04-13] MEDS ORDERED: PHENYTOIN SODIUM 100 MG/2 ML VIAL IVPB ONE (09:05)
[2019-04-13] MEDS ORDERED: MIDAZOLAM HCL 5 MG/1 ML Single Dose Vial ONE ×2 (09:06→09:17)
[2019-04-13] MEDS ORDERED: MIDAZOLAM 100 MG/100 ML MG IVPB ONE (09:14)
[2019-04-13] MEDS ORDERED: LORazepam 2 MG/ML SDV VIAL IVPUSH ONE (09:15)
[2019-04-13] MEDS ORDERED: PROPOFOL 20 ML ONE (09:19)
[2019-04-13] MEDS ORDERED: PROPOFOL 200 MG/20 ML VIAL IVPUSH ONE (09:29)
[2019-04-13] MEDS ORDERED: SUCCINYLCHOLINE CHLORIDE 200 MG/10 ML VIAL IVPUSH ONE (09:29)
[2019-04-13] MEDS: VALPROATE SODIUM 500 MG/5 ML VIAL IVPB SCH ×2 (09:30→21:57)
[2019-04-13] MEDS ORDERED: SODIUM CHLORIDE IVPB ONE ×2 (09:30)
[2019-04-13] MEDS ORDERED: PHENYTOIN SODIUM IVPB ONE ×2 (09:30)
[2019-04-13] MEDS ORDERED: PROPOFOL 2,000,000 MCG/200 ML VIAL ONE (09:34)
--- NOTE | 2019-04-13 09:35 | PROC ---
Intubation - Intubation Reason for Intubation: Airway Protection Time of Intubation: 09:32 Intubation Method: orotracheal Blade used: Mac Tube Size (cm): 8.0 Tube position @ lip (cm): 24 Tube position confirmed by: Direct visualization, CO2 detector, Breath sounds Breath Sounds after Intubation: equal Post Intubation Xray: Yes Remarks: Called to intubate patient in status epilepticus. Pt. with tonic clonic seizure upon my arrival. Versed 4mg IV given (total about 11mg of versed and Ativan 4mg ) with continued sz. Propofol 200mg and succ 120mg given. Mac 4, Grade 1, +EtCO2 , BS=BL, atraumatic. CXR pending.
[2019-04-13] MEDS: PROPOFOL 1,000,000 MCG/100 ML VIAL IVPB SCH ×4 (09:40→21:48)
[2019-04-13] MEDS: MIDAZOLAM 100 MG in SODIUM CHLORIDE 100 ML IVPB SCH (09:45)
[2019-04-13] MEDS: HEPARIN NA (PORCINE) 5,000 UNITS/ML 1ML VIAL SQ SCH ×2 (10:30→21:47)
--- NOTE | 2019-04-13 11:38 | PN ---
Teaching Attending Note Name of Resident: Alana Redding ATTENDING PHYSICIAN STATEMENT I saw and evaluated the patient. I reviewed the resident's note and discussed the case with the resident. I agree with the resident's findings and plan as documented. SUBJECTIVE: Pt seen and examined in the ICU. Intubated this AM for status epilepticus requiring multiple ativan and versed pushes. OBJECTIVE: Vital Signs Period Temp Pulse Resp BP Sys/Malcolm Pulse Ox Last 24 Hr 98.2 F-99.1 F 78-95 15-22 100-138/57-100 97-100 Intake & Output 04/10/19 04/11/19 04/12/19 04/13/19 23:59 23:59 23:59 23:59 Intake Total 2264 1093 4060 10 Output Total 750 2450 650 Balance 1514 -1357 3410 10 Weight 97.069 kg 98.43 kg Gen: intubated, sedated Heart: RRR Lung: decreased breath sounds at the bases Abd: soft, nontender Ext: no edema CBC, BMP 04/13/19 05:30 04/13/19 05:30 Active Medications Heparin Sodium (Porcine) (Heparin -) 5,000 unit SQ BID MEDINA Last Admin: 04/12/19 21:03 Dose: 5,000 unit Sodium Chloride (Normal Saline -) 1,000 mls @ 150 mls/hr IV ASDIR MEDINA Last Admin: 04/13/19 02:47 Dose: 150 mls/hr Midazolam HCl 100 mg/ Sodium (Chloride) 100 mls @ 1 mls/hr IVPB TITR MEDINA; Protocol Last Titration: 04/13/19 10:00 Dose: 2 mg/hr, 2 mls/hr Propofol (Diprivan -) 1,000,000 mcg in 100 mls @ 2.953 mls/hr IVPB TITR MEDINA; Protocol Last Titration: 04/13/19 09:45 Dose: 25 mcg/kg/min, 14.765 mls/hr Potassium Chloride (Potassium Chloride 10 Meq Premix Ivpb -) 10 meq in 100 mls @ 100 mls/hr IVPB Q60M MEDINA Stop: 04/13/19 14:29 Lactated Ringer's (Lactated Ringers Solution) 1,000 ml in 1,000 mls @ 125 mls/ hr IV ASDIR MEDINA Lorazepam (Ativan Injection -) 2 mg IVPUSH Q6H PRN PRN Reason: WITHDRAWAL(CONT SUBST) Last Admin: 04/13/19 08:55 Dose: 2 mg Phenol/Menthol (Chloraseptic -) 1 spray MM Q6HPO PRN PRN Reason: SORE THROAT Last Admin: 04/12/19 13:26 Dose: 1 spray Scopolamine HBr (Transderm-Scop -) 1 patch TD Q72H MEDINA Last Admin: 04/13/19 00:43 Dose: Not Given Valproate Sodium (Depacon Injection -) 750 mg IVPB BID MEDINA Last Admin: 04/12/19 21:03 Dose: 750 mg ASSESSMENT AND PLAN: Acute Respiratory Failure Status Epilepticus Polysubstance Abuse HTN - neuro f/u - titrate antiepileptics - aspiration precautions - continue empiric antibiotics for possible aspiration - O2 to keep SpO2 >90% - DVT prophylaxis - continue ICU monitoring critical care time spent in reviewing chart, evaluating patient and formulating plan 35 min
[2019-04-13] MEDS ORDERED: LACTATED RINGERS SOLUTION 1,000 ML/1,000 ML INFUS.BAG IV SCH (11:45)
[2019-04-13] MEDS ORDERED: CEFTRIAXONE 1 GM in DEXTROSE 5%-WATER - 50 ML IVPB ONE (11:56)
[2019-04-13] MEDS: KCL 10 MEQ IVPB 10 MEQ/100 ML INFUS.BAG IVPB SCH ×3 (12:00→15:30)
[2019-04-13] MEDS: levETIRAcetam 500 MG/5 ML INJECTION VIAL IVPB SCH ×2 (13:00→21:47)
[2019-04-13] MEDS ORDERED: DEXTROSE 5%-WATER - 50 ML IVPB ONE (14:16)
[2019-04-13] MEDS ORDERED: cefTRIAXone SODIUM 1 GM VIAL ONE (14:16)
[2019-04-13] MEDS ORDERED: PROPOFOL 1,000,000 MCG/100 ML VIAL ONE (16:39)
--- NOTE | 2019-04-13 16:51 | PN ---
Progress Note, Physician Chief Complaint: seizures History of Present Illness: patient intubated this AM due to status epilepticus - Current Medication List Current Medications: Active Medications Heparin Sodium (Porcine) (Heparin -) 5,000 unit SQ BID [facility] Last Admin: 04/13/19 10:30 Dose: 5,000 unit Sodium Chloride (Normal Saline -) 1,000 mls @ 150 mls/hr IV ASDIR [facility] Last Admin: 04/13/19 02:47 Dose: 150 mls/hr Midazolam HCl 100 mg/ Sodium (Chloride) 100 mls @ 1 mls/hr IVPB TITR [facility]; Protocol Last Titration: 04/13/19 10:00 Dose: 2 mg/hr, 2 mls/hr Propofol (Diprivan -) 1,000,000 mcg in 100 mls @ 2.953 mls/hr IVPB TITR [facility]; Protocol Last Admin: 04/13/19 13:00 Dose: 40 mcg/kg/min, 23.623 mls/hr Levetiracetam (Keppra Injection -) 500 mg IVPB BID [facility] Last Admin: 04/13/19 13:00 Dose: 500 mg Lorazepam (Ativan Injection -) 2 mg IVPUSH Q6H PRN PRN Reason: WITHDRAWAL(CONT SUBST) Last Admin: 04/13/19 08:55 Dose: 2 mg Phenol/Menthol (Chloraseptic -) 1 spray MM Q6HPO PRN PRN Reason: SORE THROAT Last Admin: 04/12/19 13:26 Dose: 1 spray Scopolamine HBr (Transderm-Scop -) 1 patch TD Q72H [facility] Last Admin: 04/13/19 00:43 Dose: Not Given Valproate Sodium (Depacon Injection -) 750 mg IVPB BID [facility] Last Admin: 04/13/19 09:30 Dose: 750 mg - Objective Vital Signs: Vital Signs Temperature 98.4 F 04/13/19 14:00 Pulse Rate 82 04/13/19 14:00 Respiratory Rate 15 04/13/19 15:17 Blood Pressure 138/88 04/13/19 14:00 O2 Sat by Pulse Oximetry (%) 100 04/13/19 09:41 Constitutional: Yes: Other (intubated and sedated) Cardiovascular: Yes: WNL, Regular Rate and Rhythm Respiratory: Yes: WNL, CTA Bilaterally (on vent) Gastrointestinal: Yes: WNL, Normal Bowel Sounds, Soft, Abdomen, Obese Musculoskeletal: Yes: WNL Extremities: Yes: WNL Edema: No Labs: CBC, BMP 04/13/19 05:30 04/13/19 05:30 Problem List - Problems (1) HTN (hypertension) Code(s): I10 - ESSENTIAL (PRIMARY) HYPERTENSION (2) Respiratory failure Code(s): J96.90 - RESPIRATORY FAILURE, UNSP, UNSP W HYPOXIA OR HYPERCAPNIA (3) Seizure Code(s): R56.9 - UNSPECIFIED CONVULSIONS (4) Near syncope Code(s): R55 - SYNCOPE AND COLLAPSE (5) Opioid dependence with withdrawal Code(s): F11.23 - OPIOID DEPENDENCE WITH WITHDRAWAL (6) Sedative, hypnotic or anxiolytic dependence with withdrawal, uncomplicated Code(s): F13.230 - SEDATV/HYP/ANXIOLYTC DEPENDENCE W WITHDRAWAL, UNCOMPLICATED Assessment/Plan 38 year old man with a history of HTN, heroin/xanax use who presented to the ED from [facility] after a witnessed seizure. 1. Status epilepticus/Acute respiratory failure likely secondary to bzd withdrawals -patient reintubated this AM, sedated on versed/propofol -keppra 500 mg bid added to depacon 750 mg bid -neurology eval -ativan PRN -replete lytes and monitor -vent mngmt per icu team -aspiration precautions 2. Leukocytosis likely reactive, resolved -coag negative /2 blood cx, likely containment 3. Hx HTN, BP controlled off meds 4. DVT ppx-heparin subq
--- NOTE | 2019-04-13 22:15 | PN ---
S Progress Note (SOAP) Subjective: 38 y. o male w/ opioid and benzodiazepine dependence referred for consultation , pt transferred from rehab 2/2 seizure, currently intubated , on versed 2/2 acute respiratory failure , status epilepticus , HTN . Active Medications Heparin Sodium (Porcine) (Heparin -) 5,000 unit SQ BID [facility] Last Admin: 04/13/19 21:47 Dose: 5,000 unit Sodium Chloride (Normal Saline -) 1,000 mls @ 150 mls/hr IV ASDIR MEDINA Last Admin: 04/13/19 18:00 Dose: 150 mls/hr Midazolam HCl 100 mg/ Sodium (Chloride) 100 mls @ 1 mls/hr IVPB TITR [facility]; Protocol Last Titration: 04/13/19 20:18 Dose: 4 mg/hr, 4 mls/hr Propofol (Diprivan -) 1,000,000 mcg in 100 mls @ 2.953 mls/hr IVPB TITR [facility]; Protocol Last Admin: 04/13/19 21:48 Dose: 40 mcg/kg/min, 23.623 mls/hr Levetiracetam (Keppra Injection -) 500 mg IVPB BID [facility] Last Admin: 04/13/19 21:47 Dose: 500 mg Lorazepam (Ativan Injection -) 2 mg IVPUSH Q6H PRN PRN Reason: WITHDRAWAL(CONT SUBST) Last Admin: 04/13/19 08:55 Dose: 2 mg Phenol/Menthol (Chloraseptic -) 1 spray MM Q6HPO PRN PRN Reason: SORE THROAT Last Admin: 04/12/19 13:26 Dose: 1 spray Scopolamine HBr (Transderm-Scop -) 1 patch TD Q72H [facility] Last Admin: 04/13/19 21:48 Dose: 1 patch Valproate Sodium (Depacon Injection -) 750 mg IVPB BID [facility] Last Admin: 04/13/19 21:57 Dose: 750 mg Objective: pt intubated , does not open eyes to commands , minimal AROM 2/2 sedation , appears to recognize own name when prompted . CBC, BMP 04/13/19 05:30 04/13/19 05:30 Vital Signs - 24 hr 04/13/19 04/13/19 04/13/19 00:00 02:00 06:00 Temperature 98.2 F Pulse Rate 89 85 78 Respiratory 18 17 15 Rate Blood Pressure 105/57 L 106/58 L 117/75 O2 Sat by Pulse Oximetry (%) 04/13/19 04/13/19 04/13/19 08:00 09:41 10:00 Temperature 98.6 F Pulse Rate 80 91 H 87 Respiratory 18 22 H 17 Rate Blood Pressure 100/67 138/100 O2 Sat by Pulse 100 100 Oximetry (%) 04/13/19 04/13/19 04/13/19 12:00 12:25 14:00 Temperature 98.4 F Pulse Rate 86 82 Respiratory 15 16 17 Rate Blood Pressure 132/93 138/88 O2 Sat by Pulse Oximetry (%) 04/13/19 04/13/19 04/13/19 15:17 16:00 18:00 Temperature 98.0 F Pulse Rate 78 80 Respiratory 15 17 18 Rate Blood Pressure 130/60 103/50 L O2 Sat by Pulse Oximetry (%) 04/13/19 04/13/19 04/13/19 18:10 20:00 21:20 Temperature 97.3 F L Pulse Rate 81 Respiratory 18 21 H 18 Rate Blood Pressure 131/101 H O2 Sat by Pulse 100 Oximetry (%) 04/13/19 22:00 Temperature Pulse Rate 76 Respiratory 17 Rate Blood Pressure 132/90 O2 Sat by Pulse 100 Oximetry (%) Assessment: opioid dependence sedative dependence Plan: consider neurology re-evaluation for any further anticonvulsant dose adjustments.
[2019-04-14] MEDS: PROPOFOL 1,000,000 MCG/100 ML VIAL IVPB SCH ×2 (02:32→15:04)
[2019-04-14 06:48] LABS: BASO % 0.3 % (0-2.0); EOS % 7.9 % (0-4.5); HEMATOCRIT 31.6 % (35.4-49); HEMOGLOBIN 11.2 GM/dL (11.7-16.9); LYMPH % 30.8 % (8-40); MCH 29.8 pg (25.7-33.7); MCHC 35.3 g/dl (32.0-35.9); MEAN CELL VOLUME 84.5 fl (80-96); MEAN PLT VOLUME 8.8 fl (7.5-11.1); MONO % 7.7 % (3.8-10.2); NEUT % 53.3 % (42.8-82.8); PLATELET COUNT 242 K/MM3 (134-434); RBC 3.74 M/mm3 (4.00-5.60); RDW 13.1 % (11.9-15.9); WHITE BLOOD COUNT 7.9 K/mm3 (4.0-10.0)
[2019-04-14 07:18] LABS: ALBUMIN 2.9 g/dl (3.4-5.0); BILIRUBIN,TOTAL 0.3 mg/dL (0.2-1); CALCIUM 8.3 mg/dL (8.5-10.1); CREATININE 0.5 mg/dL (0.55-1.3); MAGNESIUM 2.4 mg/dL (1.8-2.4); PHOSPHOROUS 4.8 mg/dL (2.5-4.9); POTASSIUM 3.5 mmol/L (3.5-5.1); TOT PROT 5.6 g/dl (6.4-8.2)
--- NOTE | 2019-04-14 07:29 | PN ---
Physical Exam: SUBJECTIVE: Patient seen and examined at bedside, sedated. No acute events overnight OBJECTIVE: Vital Signs Period Temp Pulse Resp BP Sys/Malcolm Pulse Ox Last 24 Hr 97.3 F-98.6 F 68-91 15-22 100-138/50-101 100-100 GENERAL: The patient is sedated EYES: PERRL, sclera anicteric, conjunctiva clear. No ptosis. LUNGS: Breath sounds equal, clear to auscultation bilaterally, no wheezes, no crackles, no accessory muscle use. HEART: Regular rate and rhythm, S1, S2 without murmur, rub or gallop. ABDOMEN: Soft, nontender, nondistended, normoactive bowel sounds, no guarding, no rebound, no hepatosplenomegaly, no masses. EXTREMITIES: 2+ pulses, warm, well-perfused, no edema. NEUROLOGICAL: Cranial nerves II through XII grossly intact. SKIN: Warm, dry, normal turgor, no rashes or lesions noted Laboratory Results - last 24 hr 04/14/19 05:30 Sodium 140 Potassium 3.5 Chloride 108 H Carbon Dioxide 26 Anion Gap 6 L BUN 7 Creatinine 0.5 L Est GFR (CKD-EPI)AfAm 158.21 Est GFR (CKD-EPI)NonAf 136.51 Random Glucose 73 L Calcium 8.3 L Phosphorus 4.8 Magnesium 2.4 Total Bilirubin 0.3 AST 15 ALT 20 Alkaline Phosphatase 51 Total Protein 5.6 L Albumin 2.9 L Active Medications Generic Name Dose Route Start Last Admin Trade Name Freq PRN Reason Stop Dose Admin Heparin Sodium (Porcine) 5,000 unit 04/09/19 22:00 04/13/19 21:47 Heparin - SQ 5,000 unit BID [facility] Administration Sodium Chloride 1,000 mls @ 150 mls/hr 04/12/19 11:00 04/13/19 18:00 Normal Saline - IV 150 mls/hr ASDIR MEDINA Administration Midazolam HCl 100 mg/ Sodium 100 mls @ 1 mls/hr 04/13/19 09:30 04/13/19 20:18 Chloride IVPB 4 mg/hr TITR [facility] 4 mls/hr Titration Protocol 1 MG/HR Propofol 1,000,000 mcg in 100 mls @ 2.953 mls/hr 04/13/19 09:45 04/14/19 06: 31 Diprivan - IVPB 40 mcg/kg/min TITR [facility] 23.623 mls/hr Titration Protocol 5 MCG/KG/MIN Levetiracetam 500 mg 04/13/19 12:00 04/13/19 21:47 Keppra Injection - IVPB 500 mg BID [facility] Administration Lorazepam 2 mg 04/11/19 10:48 04/13/19 08:55 Ativan Injection - IVPUSH 2 mg Q6H PRN Administration WITHDRAWAL(CONT SUBST) Phenol/Menthol 1 spray 04/12/19 12:40 04/12/19 13:26 Chloraseptic - MM 1 spray Q6HPO PRN Administration SORE THROAT Scopolamine HBr 1 patch 04/10/19 01:15 04/13/19 21:48 Transderm-Scop - TD 1 patch Q72H [facility] Administration Valproate Sodium 750 mg 04/12/19 11:54 04/13/19 21:57 Depacon Injection - IVPB 750 mg BID [facility] Administration ASSESSMENT/PLAN: 38yo M with PMH of Opioid Dependence, Benzodiazepine Dependence, HLD brought to ICU for status epilepticus NEURO -Seizure disorder, BZ withdrawal -Neurology consulted (Dr. Briones) -Seizure and fall precautions -Depacon 750mg BID -Adding Keppra 500 BID -Ativan PRN for breakthrough seizures -Off of sedation today ENDO -Trend lytes PULM -Off of vent, on Ventimask -SpO2>90% ID -Leukocytosis, likely reactive v. aspiration. Trending down -Trend FEN -replete electrolytes as needed -IV fluids -Advance diet as tolerated PROPHYLAXIS -Heparin sc -SCD Dispo Will monitor in ICU Visit type - Emergency Visit Emergency Visit: Yes ED Registration Date: 04/10/19 Care time: The patient presented to the Emergency Department on the above date and was hospitalized for further evaluation of their emergent condition. - New Patient This patient is new to me today: No - Critical Care Critical Care patient: Yes Total Critical Care Time (in minutes): 35 Critical Care Statement: The care of this patient involved high complexity decision making to prevent further life threatening deterioration of the patient 's condition and/or to evaluate & treat vital organ system(s) failure or risk of failure.
[2019-04-14] MEDS: HEPARIN NA (PORCINE) 5,000 UNITS/ML 1ML VIAL SQ SCH ×2 (09:21→21:05)
[2019-04-14] MEDS: VALPROATE SODIUM 500 MG/5 ML VIAL IVPB SCH (09:21)
[2019-04-14] MEDS: levETIRAcetam 500 MG/5 ML INJECTION VIAL IVPB SCH ×2 (09:21→21:06)
--- NOTE | 2019-04-14 09:36 | PN ---
Physical Exam: SUBJECTIVE: Patient seen and examined at in the icu. OBJECTIVE: remains intubated Vital Signs Period Temp Pulse Resp BP Sys/Malcolm Pulse Ox Last 24 Hr 97.3 F-98.6 F 68-91 15-22 103-138/50-101 100-100 GENERAL: intubated, sedated HEAD: Normal with no signs of trauma. EYES: PERRL, extraocular movements intact, sclera anicteric, conjunctiva clear. No ptosis. LUNGS: Breath sounds equal, clear to auscultation bilaterally, HEART: Regular rate and rhythm, ABDOMEN: Soft, nontender, nondistended, normoactive bowel sounds, no guarding, EXTREMITIES: no edema. NEUROLOGICAL: sedated Laboratory Results - last 24 hr 04/14/19 04/14/19 05:30 05:30 WBC 7.9 RBC 3.74 L Hgb 11.2 L Hct 31.6 L MCV 84.5 MCH 29.8 MCHC 35.3 RDW 13.1 Plt Count 242 MPV 8.8 Absolute Neuts (auto) 4.2 Neutrophils % 53.3 Lymphocytes % 30.8 Monocytes % 7.7 Eosinophils % 7.9 H Basophils % 0.3 Nucleated RBC % 0 Sodium 140 Potassium 3.5 Chloride 108 H Carbon Dioxide 26 Anion Gap 6 L BUN 7 Creatinine 0.5 L Est GFR (CKD-EPI)AfAm 158.21 Est GFR (CKD-EPI)NonAf 136.51 Random Glucose 73 L Calcium 8.3 L Phosphorus 4.8 Magnesium 2.4 Total Bilirubin 0.3 AST 15 ALT 20 Alkaline Phosphatase 51 Total Protein 5.6 L Albumin 2.9 L Active Medications Generic Name Dose Route Start Last Admin Trade Name Panteraq PRN Reason Stop Dose Admin Heparin Sodium (Porcine) 5,000 unit 04/09/19 22:00 04/14/19 09:21 Heparin - SQ 5,000 unit BID [facility] Administration Sodium Chloride 1,000 mls @ 150 mls/hr 04/12/19 11:00 04/13/19 18:00 Normal Saline - IV 150 mls/hr ASDIR [facility]INA Administration Midazolam HCl 100 mg/ Sodium 100 mls @ 1 mls/hr 04/13/19 09:30 04/13/19 20:18 Chloride IVPB 4 mg/hr TITR [facility] 4 mls/hr Titration Protocol 1 MG/HR Propofol 1,000,000 mcg in 100 mls @ 2.953 mls/hr 04/13/19 09:45 04/14/19 06: 31 Diprivan - IVPB 40 mcg/kg/min TITR [facility] 23.623 mls/hr Titration Protocol 5 MCG/KG/MIN Levetiracetam 500 mg 04/13/19 12:00 04/14/19 09:21 Keppra Injection - IVPB 500 mg BID [facility] Administration Lorazepam 2 mg 04/11/19 10:48 04/13/19 08:55 Ativan Injection - IVPUSH 2 mg Q6H PRN Administration WITHDRAWAL(CONT SUBST) Phenol/Menthol 1 spray 04/12/19 12:40 04/12/19 13:26 Chloraseptic - MM 1 spray Q6HPO PRN Administration SORE THROAT Scopolamine HBr 1 patch 04/10/19 01:15 04/13/19 21:48 Transderm-Scop - TD 1 patch Q72H [facility] Administration Valproate Sodium 750 mg 04/12/19 11:54 04/14/19 09:21 Depacon Injection - IVPB 750 mg BID [facility] Administration ASSESSMENT/PLAN: Patient is a 38 year old man with a history of hypertension, heroin/xanax abuse use who presented to the ED from [facility] after a witnessed seizure. Neuro: Status epilepticus/Acute respiratory failure Likely secondary to benzo withdrawal. Patient re-intubated yesterday and remains intubated this a.m. sedated on versed/propofol On keppra 500mg BID and depacon 750 mg BID Neurology following. Management per ICU. Ativan prn seizure precautions ID: Leukocytosis, resolved one positive BC bottle, no signs of infection will repeat cultures Card: Hypertension. BP controlled off meds fen sedated/intubated on ivf @ 150cc/hr monitor electrolytes npo prophy on SCDs, heparin bid Visit type - Emergency Visit Emergency Visit: Yes ED Registration Date: 04/10/19 Care time: The patient presented to the Emergency Department on the above date and was hospitalized for further evaluation of their emergent condition. - New Patient This patient is new to me today: Yes Date on this admission: 04/14/19 - Critical Care Critical Care patient: Yes Total Critical Care Time (in minutes): 60 Critical Care Statement: The care of this patient involved high complexity decision making to prevent further life threatening deterioration of the patient 's condition and/or to evaluate & treat vital organ system(s) failure or risk of failure. - Discharge Referral Referred to [facility] No
--- NOTE | 2019-04-14 12:04 | PN ---
Teaching Attending Note Name of Resident: Alana Redding ATTENDING PHYSICIAN STATEMENT I saw and evaluated the patient. I reviewed the resident's note and discussed the case with the resident. I agree with the resident's findings and plan as documented. SUBJECTIVE: Pt seen and examined in the ICU. No further seizure activity. Awake off sedation , following commands, tolerated CPAP/PS trials and subsequently extubated during rounds. No further fevers. OBJECTIVE: Vital Signs Period Temp Pulse Resp BP Sys/Malcolm Pulse Ox Last 24 Hr 97.3 F-98.4 F 68-82 15-21 103-138/50-101 98-100 Intake & Output 04/11/19 04/12/19 04/13/19 04/14/19 23:59 23:59 23:59 23:59 Intake Total 1093 4060 2748 2112 Output Total 2450 650 1500 360 Balance -1357 3410 1248 1752 Weight 98.43 kg Gen: extubated Heart: RRR Lung: decreased breath sounds at the bases Abd: soft, nontender Ext: no edema CBC, BMP 04/14/19 05:30 04/14/19 05:30 Active Medications Heparin Sodium (Porcine) (Heparin -) 5,000 unit SQ BID [facility] Last Admin: 04/14/19 09:21 Dose: 5,000 unit Sodium Chloride (Normal Saline -) 1,000 mls @ 150 mls/hr IV ASDIR MEDINA Last Admin: 04/13/19 18:00 Dose: 150 mls/hr Midazolam HCl 100 mg/ Sodium (Chloride) 100 mls @ 1 mls/hr IVPB TITR MEDINA; Protocol Last Titration: 04/13/19 20:18 Dose: 4 mg/hr, 4 mls/hr Propofol (Diprivan -) 1,000,000 mcg in 100 mls @ 2.953 mls/hr IVPB TITR MEDINA; Protocol Last Titration: 04/14/19 06:31 Dose: 40 mcg/kg/min, 23.623 mls/hr Levetiracetam (Keppra Injection -) 500 mg IVPB BID [facility] Last Admin: 04/14/19 09:21 Dose: 500 mg Phenol/Menthol (Chloraseptic -) 1 spray MM Q6HPO PRN PRN Reason: SORE THROAT Last Admin: 04/12/19 13:26 Dose: 1 spray Scopolamine HBr (Transderm-Scop -) 1 patch TD Q72H [facility] Last Admin: 04/13/19 21:48 Dose: 1 patch Valproate Sodium (Depacon Injection -) 750 mg IVPB BID [facility] Last Admin: 04/14/19 09:21 Dose: 750 mg ASSESSMENT AND PLAN: s/p Acute Respiratory Failure Status Epilepticus Polysubstance Abuse HTN - titrate antiepileptics per neuro - aspiration precautions - continue empiric antibiotics for possible aspiration - O2 to keep SpO2 >90% - DVT prophylaxis - continue ICU monitoring critical care time spent in reviewing chart, evaluating patient and formulating plan 35 min
[2019-04-14] MEDS ORDERED: MIDAZOLAM HCL 5 MG/1 ML Single Dose Vial ONE ×2 (13:09→22:11)
[2019-04-14] MEDS ORDERED: LORazepam 2 MG/ML SDV VIAL ONE (13:13)
[2019-04-14] MEDS ORDERED: PROPOFOL 20 ML ONE (13:20)
[2019-04-14] MEDS ORDERED: PHENYTOIN SODIUM 100 MG/2 ML VIAL IVPB ONE (13:23)
[2019-04-14] MEDS ORDERED: MIDAZOLAM HCL 2 MG/2 ML SINGLE DOSE VIAL IVPUSH ONE (13:26)
[2019-04-14] MEDS ORDERED: PROPOFOL 200 MG/20 ML VIAL IVPUSH ONE (13:26)
[2019-04-14] MEDS ORDERED: MIDAZOLAM HCL 5 MG/1 ML Single Dose Vial IVPUSH ONE ×4 (13:26→22:20)
[2019-04-14] MEDS: SODIUM CHLORIDE 1,000 ML IV SCH (13:30)
[2019-04-14] MEDS ORDERED: VALPROATE SODIUM 500 MG/5 ML VIAL IVPB SCH (13:35)
--- NOTE | 2019-04-14 13:41 | HOSP ---
Subjective - Review of Symptoms Events since last encounter: At approximately 1308 patient started to have a seizure which appeared tonic clonic. Patient received 4mg Versed which did not break the seizure, another 4mg Versed was given. 50mg Propofol broke the seizure. Dr Briones was called, recommended that patient maximize current regimen. Depacon changed from 750mg BID to 1000mg BID and Keppra changed from 500mg BID to 1000mg BID. Patient was told about possibly taking Klonopin if seizures are due to BZ withdrawal however patient refused at the time due to addictive potential. Physical Examination Vital Signs: Vital Signs Temperature 98 F 04/14/19 10:00 Pulse Rate 83 04/14/19 12:00 Respiratory Rate 18 04/14/19 12:00 Blood Pressure 131/82 04/14/19 12:00 O2 Sat by Pulse Oximetry (%) 100 04/14/19 10:00 Labs: CBC, BMP 04/14/19 05:30 04/14/19 05:30 Visit type - Emergency Visit Emergency Visit: Yes ED Registration Date: 04/10/19 Care time: The patient presented to the Emergency Department on the above date and was hospitalized for further evaluation of their emergent condition. - New Patient This patient is new to me today: No - Critical Care Critical Care patient: Yes Total Critical Care Time (in minutes): 15
[2019-04-14] MEDS ORDERED: SODIUM CHLORIDE IVPB ONE (13:45)
[2019-04-14] MEDS ORDERED: PHENYTOIN SODIUM IVPB ONE (13:45)
[2019-04-14] MEDS ORDERED: levETIRAcetam 500 MG/5 ML INJECTION VIAL IVPB ONE (14:15)
[2019-04-14] MEDS ORDERED: VALPROATE SODIUM 500 MG/5 ML VIAL IVPB ONE (14:25)
[2019-04-14] MEDS: MIDAZOLAM 100 MG in SODIUM CHLORIDE 100 ML IVPB SCH (15:04)
--- NOTE | 2019-04-14 18:29 | PN ---
Progress Note, Physician History of Present Illness: events noted Chart reviewed Unfortunately still getting withdrawal seizure No report of any blurry vision double visio Patient was extubated and had another seizure today at 1 PM I preferred to maximize the Depakote and the Keppra before adding a third agent - Current Medication List Current Medications: Active Medications Heparin Sodium (Porcine) (Heparin -) 5,000 unit SQ BID [facility] Last Admin: 04/14/19 09:21 Dose: 5,000 unit Sodium Chloride (Normal Saline -) 1,000 mls @ 150 mls/hr IV ASDIR [facility] Last Admin: 04/14/19 13:30 Dose: 150 mls/hr Midazolam HCl 100 mg/ Sodium (Chloride) 100 mls @ 1 mls/hr IVPB TITR [facility]; Protocol Last Admin: 04/14/19 15:04 Dose: Not Given Propofol (Diprivan -) 1,000,000 mcg in 100 mls @ 2.953 mls/hr IVPB TITR [facility]; Protocol Last Admin: 04/14/19 15:04 Dose: Not Given Levetiracetam (Keppra Injection -) 1,000 mg IVPB BID [facility] Phenol/Menthol (Chloraseptic -) 1 spray MM Q6HPO PRN PRN Reason: SORE THROAT Last Admin: 04/12/19 13:26 Dose: 1 spray Scopolamine HBr (Transderm-Scop -) 1 patch TD Q72H [facility] Last Admin: 04/13/19 21:48 Dose: 1 patch Valproate Sodium (Depacon Injection -) 1,000 mg IVPB BID [facility] - Objective Vital Signs: Vital Signs Temperature 98.5 F 04/14/19 16:00 Pulse Rate 88 04/14/19 18:00 Respiratory Rate 20 04/14/19 18:00 Blood Pressure 108/56 L 04/14/19 18:00 O2 Sat by Pulse Oximetry (%) 100 04/14/19 10:00 Constitutional: Yes: Well Nourished Eyes: Yes: WNL Neurological: Yes: Alert, Babinski negative ...Motor Strength: WNL Labs: CBC, BMP 04/14/19 05:30 04/14/19 05:30 Problem List - Problems (1) Seizure Assessment/Plan: 1. neurochecks every 1 hour. 2. Seizure precautions. 3. Increase by mouth fluid intake. 4. Keppra 1000 mg twice daily and check level. 5. Depakote 1000 mg 3 times a day and check level. Code(s): R56.9 - UNSPECIFIED CONVULSIONS
[2019-04-14] MEDS ORDERED: MIDAZOLAM HCL 2 MG/2 ML SINGLE DOSE VIAL ONE (22:20)
[2019-04-14] MEDS ORDERED: ACETAMINOPHEN 1000 MG/100 ML VIAL (NON FORMULARY) IVPB ONE (22:28)
[2019-04-15] MEDS ORDERED: MELATONIN 5 MG TABLETS PO ONE (02:57)
[2019-04-15] MEDS: SODIUM CHLORIDE 1,000 ML IV SCH ×2 (05:58→18:27)
[2019-04-15 06:39] LABS: BASO % 0.6 % (0-2.0); EOS % 5.1 % (0-4.5); HEMATOCRIT 32.7 % (35.4-49); HEMOGLOBIN 11.6 GM/dL (11.7-16.9); LYMPH % 31.3 % (8-40); MCHC 35.4 g/dl (32.0-35.9); MEAN CELL VOLUME 84.7 fl (80-96); MEAN PLT VOLUME 8.6 fl (7.5-11.1); MONO % 7.1 % (3.8-10.2); NEUT % 55.9 % (42.8-82.8); PLATELET COUNT 283 K/MM3 (134-434); RBC 3.87 M/mm3 (4.00-5.60); RDW 13.1 % (11.9-15.9); WHITE BLOOD COUNT 7.1 K/mm3 (4.0-10.0)
[2019-04-15 07:08] LABS: BILIRUBIN,TOTAL 0.5 mg/dL (0.2-1); CALCIUM 8.4 mg/dL (8.5-10.1); CREATININE 0.6 mg/dL (0.55-1.3); MAGNESIUM 2.2 mg/dL (1.8-2.4); PHOSPHOROUS 4.2 mg/dL (2.5-4.9); POTASSIUM 3.5 mmol/L (3.5-5.1)
--- NOTE | 2019-04-15 08:20 | PN ---
Physical Exam: SUBJECTIVE: Patient seen and examined at bedside. Had another seizure yesterday evening that broke with a total of 10mg Versed. Maximizing doses of current antiepileptics before starting another agent. Patient has no complaints today, was able to sleep after taking melatonin. Pt had another seizure at approximately 1025 lasting 15 minutes. Versed 10mg did not break seizure, broken with 15mg propofol. OBJECTIVE: Vital Signs Period Temp Pulse Resp BP Sys/Malcolm Pulse Ox Last 24 Hr 98 F-100.4 F 74-94 12-23 104-138/52-88 96-100 GENERAL: The patient is awake, alert, and fully oriented, in no acute distress. EYES: PERRL, extraocular movements intact, sclera anicteric, conjunctiva clear. No ptosis. LUNGS: Breath sounds equal, clear to auscultation bilaterally, no wheezes, no crackles, no accessory muscle use. HEART: Regular rate and rhythm, S1, S2 without murmur, rub or gallop. ABDOMEN: Soft, nontender, nondistended, normoactive bowel sounds, no guarding, no rebound, no hepatosplenomegaly, no masses. EXTREMITIES: 2+ pulses, warm, well-perfused, no edema. NEUROLOGICAL: Cranial nerves II through XII grossly intact. Normal speech, gait not observed. PSYCH: Normal mood, normal affect. SKIN: Warm, dry, normal turgor, no rashes or lesions noted Laboratory Results - last 24 hr 04/15/19 04/15/19 04/15/19 05:30 05:30 05:30 WBC 7.1 RBC 3.87 L Hgb 11.6 L Hct 32.7 L MCV 84.7 MCH 30.0 MCHC 35.4 RDW 13.1 Plt Count 283 MPV 8.6 Absolute Neuts (auto) 4.0 Neutrophils % 55.9 Lymphocytes % 31.3 Monocytes % 7.1 Eosinophils % 5.1 H Basophils % 0.6 Nucleated RBC % 0 Sodium 139 Potassium 3.5 Chloride 107 Carbon Dioxide 25 Anion Gap 7 L BUN 7 Creatinine 0.6 Est GFR (CKD-EPI)AfAm 146.79 Est GFR (CKD-EPI)NonAf 126.65 Random Glucose 72 L Calcium 8.4 L Phosphorus 4.2 Magnesium 2.2 Total Bilirubin 0.5 AST 15 ALT 20 Alkaline Phosphatase 52 Total Protein 6.0 L Albumin 3.0 L Valproic Acid 82.6 Active Medications Generic Name Dose Route Start Last Admin Trade Name Panteraq PRN Reason Stop Dose Admin Heparin Sodium (Porcine) 5,000 unit 04/09/19 22:00 04/14/19 21:05 Heparin - SQ 5,000 unit BID [facility] Administration Sodium Chloride 1,000 mls @ 150 mls/hr 04/12/19 11:00 04/15/19 05:58 Normal Saline - IV 150 mls/hr ASDIR [facility] Administration Midazolam HCl 100 mg/ Sodium 100 mls @ 1 mls/hr 04/13/19 09:30 04/14/19 15:04 Chloride IVPB Not Given TITR MEDINA Protocol 1 MG/HR Propofol 1,000,000 mcg in 100 mls @ 2.953 mls/hr 04/13/19 09:45 04/14/19 15: 04 Diprivan - IVPB Not Given TITR [facility] Protocol 5 MCG/KG/MIN Levetiracetam 1,000 mg 04/14/19 13:35 04/14/19 21:06 Keppra Injection - IVPB 1,000 mg BID [facility] Administration Phenol/Menthol 1 spray 04/12/19 12:40 04/12/19 13:26 Chloraseptic - MM 1 spray Q6HPO PRN Administration SORE THROAT Scopolamine HBr 1 patch 04/10/19 01:15 04/13/19 21:48 Transderm-Scop - TD 1 patch Q72H [facility] Administration Valproate Sodium 1,000 mg 04/15/19 14:00 Depacon Injection - IVPB TID [facility] ASSESSMENT/PLAN: 38yo M with PMH of Opioid Dependence, Benzodiazepine Dependence, HLD brought to ICU for status epilepticus NEURO -Seizure disorder, BZ withdrawal v. epilepsy -Neurology consulted (Dr. Briones) -Seizure and fall precautions -Depacon 1000 TID -Keppra 1000 BID -Ativan PRN, Versed PRN for breakthrough seizures -Depakote and Keppra levels ENDO -Trend lytes PULM -On room air -SpO2>90% ID -Leukocytosis, likely reactive v. aspiration. Trending down -Trend FEN -Replete electrolytes as needed -IV fluids -Advance diet as tolerated PROPHYLAXIS -Heparin sc -SCD Dispo Will monitor in ICU Visit type - Emergency Visit Emergency Visit: Yes ED Registration Date: 04/10/19 Care time: The patient presented to the Emergency Department on the above date and was hospitalized for further evaluation of their emergent condition. - New Patient This patient is new to me today: No - Critical Care Critical Care patient: Yes Total Critical Care Time (in minutes): 35 Critical Care Statement: The care of this patient involved high complexity decision making to prevent further life threatening deterioration of the patient 's condition and/or to evaluate & treat vital organ system(s) failure or risk of failure.
[2019-04-15] MEDS ORDERED: MIDAZOLAM HCL 5 MG/1 ML Single Dose Vial IVPUSH PRN (08:22)
[2019-04-15] MEDS: levETIRAcetam 500 MG/5 ML INJECTION VIAL IVPB SCH ×2 (10:11→21:52)
[2019-04-15] MEDS: HEPARIN NA (PORCINE) 5,000 UNITS/ML 1ML VIAL SQ SCH ×2 (10:14→21:53)
[2019-04-15] MEDS: MIDAZOLAM 100 MG in SODIUM CHLORIDE 100 ML IVPB SCH (10:19)
[2019-04-15] MEDS: PROPOFOL 1,000,000 MCG/100 ML VIAL IVPB SCH (10:19)
[2019-04-15] MEDS ORDERED: MIDAZOLAM HCL 5 MG/1 ML Single Dose Vial ONE ×5 (10:30→21:31)
[2019-04-15] MEDS ORDERED: PROPOFOL 20 ML ONE ×2 (10:40→19:26)
[2019-04-15] MEDS ORDERED: MIDAZOLAM HCL 5 MG/1 ML Single Dose Vial IVPUSH ONE ×4 (10:44→21:41)
[2019-04-15] MEDS ORDERED: PROPOFOL 200 MG/20 ML VIAL IVPUSH ONE (10:45)
--- NOTE | 2019-04-15 11:42 | PN ---
Teaching Attending Note Name of Resident: Alana Redding ATTENDING PHYSICIAN STATEMENT I saw and evaluated the patient. I reviewed the resident's note and discussed the case with the resident. I agree with the resident's findings and plan as documented. SUBJECTIVE: Pt seen and examined in the ICU. Still with intermittent seizures. Antiepileptics changed per neuro. OBJECTIVE: Vital Signs Period Temp Pulse Resp BP Sys/Malcolm Pulse Ox Last 24 Hr 98.1 F-100.4 F 75-98 12-23 104-152/52-99 96-98 Intake & Output 04/12/19 04/13/19 04/14/19 04/15/19 23:59 23:59 23:59 23:59 Intake Total 4060 2748 5364 1050 Output Total 650 1500 4060 750 Balance 3410 1248 1304 300 Weight 100.108 kg Gen: somnolent but arousable Heart: RRR Lung: decreased breath sounds at the bases Abd: soft, nontender Ext: no edema CBC, BMP 04/15/19 05:30 04/15/19 05:30 Active Medications Heparin Sodium (Porcine) (Heparin -) 5,000 unit SQ BID [facility] Last Admin: 04/15/19 10:14 Dose: 5,000 unit Sodium Chloride (Normal Saline -) 1,000 mls @ 150 mls/hr IV ASDIR [facility]CLUDES [facility] Last Admin: 04/15/19 05:58 Dose: 150 mls/hr Levetiracetam (Keppra Injection -) 1,000 mg IVPB BID [facility] Last Admin: 04/15/19 10:11 Dose: 1,000 mg Melatonin (Melatonin) 10 mg PO HS PRN PRN Reason: sleep Midazolam HCl (Versed -) 5 mg IVPUSH ONCE PRN PRN Reason: seizure Phenol/Menthol (Chloraseptic -) 1 spray MM Q6HPO PRN PRN Reason: SORE THROAT Last Admin: 04/12/19 13:26 Dose: 1 spray Scopolamine HBr (Transderm-Scop -) 1 patch TD Q72H [facility] Last Admin: 04/13/19 21:48 Dose: 1 patch Valproate Sodium (Depacon Injection -) 1,000 mg IVPB TID [facility] ASSESSMENT AND PLAN: s/p Acute Respiratory Failure Status Epilepticus Polysubstance Abuse HTN - titrate antiepileptics per neuro - aspiration precautions - O2 to keep SpO2 >90% - DVT prophylaxis - continue ICU monitoring critical care time spent in reviewing chart, evaluating patient and formulating plan 35 min
[2019-04-15] MEDS: VALPROATE SODIUM 500 MG/5 ML VIAL IVPB SCH ×2 (13:11→21:52)
[2019-04-15] MEDS ORDERED: ONDANSETRON 4 MG/2 ML VIAL IVPUSH PRN (14:29)
[2019-04-15] MEDS ORDERED: ONDANSETRON 4 MG/2 ML VIAL IVPUSH ONE (14:33)
[2019-04-15] MEDS: PROCHLORPERAZINE MALEATE 5 MG TABLET PO PRN (16:11)
--- NOTE | 2019-04-15 17:03 | PN ---
Progress Note, Physician History of Present Illness: events noted and chart reviewed Had one seizure today for 15 minutes that broke with propofol No response of Versed On Keppra and Depakote - Current Medication List Current Medications: Active Medications Heparin Sodium (Porcine) (Heparin -) 5,000 unit SQ BID [facility] Last Admin: 04/15/19 10:14 Dose: 5,000 unit Melatonin (Melatonin) 10 mg PO HS PRN PRN Reason: sleep Midazolam HCl (Versed -) 5 mg IVPUSH ONCE PRN PRN Reason: seizure Last Admin: 04/15/19 10:25 Dose: 5 mg Phenol/Menthol (Chloraseptic -) 1 spray MM Q6HPO PRN PRN Reason: SORE THROAT Last Admin: 04/12/19 13:26 Dose: 1 spray Prochlorperazine Maleate (Compazine -) 10 mg PO Q4H PRN PRN Reason: NAUSEA AND/OR VOMITING Last Admin: 04/15/19 16:11 Dose: 10 mg Scopolamine HBr (Transderm-Scop -) 1 patch TD Q72H [facility] Last Admin: 04/13/19 21:48 Dose: 1 patch Valproate Sodium (Depacon Injection -) 1,000 mg IVPB TID [facility] Last Admin: 04/15/19 13:11 Dose: 1,000 mg - Objective Vital Signs: Vital Signs Temperature 98.7 F 04/15/19 13:57 Pulse Rate 83 04/15/19 16:00 Respiratory Rate 18 04/15/19 16:00 Blood Pressure 115/67 04/15/19 16:00 O2 Sat by Pulse Oximetry (%) 97 04/15/19 09:00 Constitutional: Yes: Well Nourished Eyes: Yes: WNL Neurological: Yes: Alert, Oriented, Babinski negative ...Motor Strength: WNL Labs: CBC, BMP 04/15/19 05:30 04/15/19 05:30 Problem List - Problems (1) Seizure Assessment/Plan: 11. Increase Keppra to 1250 twice daily 2. Check level. 3. Continue Depakote the same. 4. Ativan when necessary seizure. 5. Follow-up with gastroenterology regarding questionable gastroenteritis Code(s): R56.9 - UNSPECIFIED CONVULSIONS
--- NOTE | 2019-04-15 18:43 | PN ---
Physical Exam: SUBJECTIVE: Patient seen and examined at the bedside. in the icu. feeling nauseous. OBJECTIVE: Vital Signs Period Temp Pulse Resp BP Sys/Malcolm Pulse Ox Last 24 Hr 98.1 F-100.4 F 64-98 12-23 104-152/52-99 96-98 GENERAL: extubated, awake, alert. in no acute distress. c/o of nausea. HEAD: Normal with no signs of trauma. EYES: PERRL, extraocular movements intact, sclera anicteric, conjunctiva clear. No ptosis. LUNGS: Breath sounds equal, clear to auscultation bilaterally, HEART: Regular rate and rhythm, ABDOMEN: Soft, nontender, nondistended, normoactive bowel sounds, no guarding, EXTREMITIES: no edema. NEUROLOGICAL: awake, cooperative. Laboratory Results - last 24 hr 04/15/19 04/15/19 04/15/19 05:30 05:30 05:30 WBC 7.1 RBC 3.87 L Hgb 11.6 L Hct 32.7 L MCV 84.7 MCH 30.0 MCHC 35.4 RDW 13.1 Plt Count 283 MPV 8.6 Absolute Neuts (auto) 4.0 Neutrophils % 55.9 Lymphocytes % 31.3 Monocytes % 7.1 Eosinophils % 5.1 H Basophils % 0.6 Nucleated RBC % 0 Sodium 139 Potassium 3.5 Chloride 107 Carbon Dioxide 25 Anion Gap 7 L BUN 7 Creatinine 0.6 Est GFR (CKD-EPI)AfAm 146.79 Est GFR (CKD-EPI)NonAf 126.65 Random Glucose 72 L Calcium 8.4 L Phosphorus 4.2 Magnesium 2.2 Total Bilirubin 0.5 AST 15 ALT 20 Alkaline Phosphatase 52 Total Protein 6.0 L Albumin 3.0 L Valproic Acid 82.6 Active Medications Generic Name Dose Route Start Last Admin Trade Name Freq PRN Reason Stop Dose Admin Heparin Sodium (Porcine) 5,000 unit 04/09/19 22:00 04/15/19 10:14 Heparin - SQ 5,000 unit BID MEDINA Administration Sodium Chloride 1,000 mls @ 42 mls/hr 04/15/19 17:30 04/15/19 18:27 Normal Saline - IV 42 mls/hr ASDIR MEDINA Administration Levetiracetam 1,250 mg 04/15/19 22:00 Keppra Injection - IVPB BID MEDINA Melatonin 10 mg 04/15/19 08:22 Melatonin PO HS PRN sleep Midazolam HCl 5 mg 04/15/19 08:22 04/15/19 10:25 Versed - IVPUSH 5 mg ONCE PRN Administration seizure Phenol/Menthol 1 spray 04/12/19 12:40 04/12/19 13:26 Chloraseptic - MM 1 spray Q6HPO PRN Administration SORE THROAT Prochlorperazine Maleate 10 mg 04/15/19 14:34 04/15/19 16:11 Compazine - PO 10 mg Q4H PRN Administration NAUSEA AND/OR VOMITING Scopolamine HBr 1 patch 04/10/19 01:15 04/13/19 21:48 Transderm-Scop - TD 1 patch Q72H [facility]INA Administration Valproate Sodium 1,000 mg 04/15/19 14:00 04/15/19 13:11 Depacon Injection - IVPB 1,000 mg TID MEDINA Administration ASSESSMENT/PLAN: Patient is a 38 year old man with a history of hypertension, heroin/xanax abuse use who presented to the ED from [facility] after a witnessed seizure. Neuro: Status epilepticus/Acute respiratory failure Seizures likely secondary to benzo withdrawal. Patient extubated yesterday, currently tolerating room air. Keppra increased to 1250mg bid, also on Depacon, levels pending Neurology following, notes reviewed Management per ICU. Ativan prn seizure precautions ID: Leukocytosis, resolved one positive BC bottle, no signs of infection repeat cultures pending Card: Hypertension. BP controlled off meds fen ivf monitor electrolytes clears prophy on SCDs, heparin bid Visit type - Emergency Visit Emergency Visit: Yes ED Registration Date: 04/10/19 Care time: The patient presented to the Emergency Department on the above date and was hospitalized for further evaluation of their emergent condition. - New Patient This patient is new to me today: No - Critical Care Critical Care patient: Yes Total Critical Care Time (in minutes): 45 Critical Care Statement: The care of this patient involved high complexity decision making to prevent further life threatening deterioration of the patient 's condition and/or to evaluate & treat vital organ system(s) failure or risk of failure.
--- NOTE | 2019-04-15 19:38 | RAPID ---
Physical Examination Vital Signs: Vital Signs Temperature 99.0 F 04/15/19 18:00 Pulse Rate 64 04/15/19 18:00 Respiratory Rate 16 04/15/19 18:00 Blood Pressure 139/64 04/15/19 18:00 O2 Sat by Pulse Oximetry (%) 97 04/15/19 09:00 Findings/Remarks: Rapid response called overhead, patient found down out of bed. Patient was trying to get to commode when he fell on the ground. Once placed back in bed he was found to be seizing. 10 of versed was pushed and seizure broke. Dr. Pierre was called, but he did not answer. Patient will be closely monitored in ICU. Plan: f.u head CT for fall f.u lactic acid and prolactin for further seizures can push versed Labs: CBC, BMP 04/15/19 05:30 04/15/19 05:30
[2019-04-15] MEDS ORDERED: IBUPROFEN 600 MG TABLET (FP) PO ONE (19:51)
[2019-04-15] MEDS ORDERED: LOPERAMIDE HCL 2 MG CAPSULE PO ONE ×2 (20:45→21:15)
[2019-04-15] MEDS ORDERED: PHENYTOIN SODIUM 100 MG/2 ML VIAL IVPB ONE (21:39)
[2019-04-15] MEDS: MELATONIN 5 MG TABLETS PO PRN (22:00)
[2019-04-15] MEDS: PHENYTOIN NA EXTENDED 100 MG CAPSULE (FP) PO SCH (22:01)
[2019-04-16] MEDS: SCOPOLAMINE HYDROBROMIDE 1 PATCH PATCH.TD72 TD SCH (01:53)
[2019-04-16] MEDS: VALPROATE SODIUM 500 MG/5 ML VIAL IVPB SCH ×3 (06:52→22:17)
[2019-04-16] MEDS: PHENYTOIN NA EXTENDED 100 MG CAPSULE (FP) PO SCH ×3 (06:52→22:17)
[2019-04-16 06:56] LABS: BASO % 0.4 % (0-2.0); HEMATOCRIT 37.5 % (35.4-49); HEMOGLOBIN 13.2 GM/dL (11.7-16.9); MCH 29.4 pg (25.7-33.7); MCHC 35.2 g/dl (32.0-35.9); MEAN CELL VOLUME 83.5 fl (80-96); MEAN PLT VOLUME 8.7 fl (7.5-11.1); MONO % 6.9 % (3.8-10.2); NEUT % 64.7 % (42.8-82.8); PLATELET COUNT 326 K/MM3 (134-434); RBC 4.49 M/mm3 (4.00-5.60); WHITE BLOOD COUNT 10.4 K/mm3 (4.0-10.0)
[2019-04-16 07:20] LABS: ALBUMIN 3.7 g/dl (3.4-5.0); BILIRUBIN,TOTAL 0.7 mg/dL (0.2-1); CALCIUM 9.3 mg/dL (8.5-10.1); CREATININE 0.8 mg/dL (0.55-1.3); PHOSPHOROUS 3.7 mg/dL (2.5-4.9); POTASSIUM 3.1 mmol/L (3.5-5.1)
--- NOTE | 2019-04-16 07:46 | PN ---
Physical Exam: SUBJECTIVE: Patient seen and examined at bedside. Patient had two episodes of seizures yesterday evening, patient fell after one episode and had CT head taken. Dilantin added to current regimen. Patient states he feels fine, does not have diarrhea anymore. OBJECTIVE: Vital Signs Period Temp Pulse Resp BP Sys/Malcolm Pulse Ox Last 24 Hr 98.5 F-99.3 F 63-98 14-23 110-158/45-99 97-99 GENERAL: The patient is awake, alert, and fully oriented, in no acute distress. HEAD: Normal with no signs of trauma. EYES: PERRL, extraocular movements intact, sclera anicteric, conjunctiva clear. No ptosis. LUNGS: Breath sounds equal, clear to auscultation bilaterally, no wheezes, no crackles, no accessory muscle use. HEART: Regular rate and rhythm, S1, S2 without murmur, rub or gallop. ABDOMEN: Soft, nontender, nondistended, normoactive bowel sounds, no guarding, no rebound, no hepatosplenomegaly, no masses. EXTREMITIES: 2+ pulses, warm, well-perfused, no edema. NEUROLOGICAL: Cranial nerves II through XII grossly intact. Normal speech, gait not observed. PSYCH: Normal mood, normal affect. SKIN: Warm, dry, normal turgor, no rashes or lesions noted Laboratory Results - last 24 hr 04/16/19 05:30 Sodium 136 Potassium 3.1 L Chloride 100 Carbon Dioxide 27 Anion Gap 10 BUN 4 L Creatinine 0.8 Est GFR (CKD-EPI)AfAm 130.42 Est GFR (CKD-EPI)NonAf 112.53 Random Glucose 132 H Calcium 9.3 Phosphorus 3.7 Magnesium 2.0 Total Bilirubin 0.7 AST 14 L ALT 24 Alkaline Phosphatase 57 Total Protein 7.0 Albumin 3.7 Active Medications Generic Name Dose Route Start Last Admin Trade Name Freq PRN Reason Stop Dose Admin Heparin Sodium (Porcine) 5,000 unit 04/09/19 22:00 04/15/19 21:53 Heparin - SQ Not Given BID MEDINA Sodium Chloride 1,000 mls @ 42 mls/hr 04/15/19 17:30 04/15/19 18:27 Normal Saline - IV 42 mls/hr ASDIR MEDINA Administration Levetiracetam 1,250 mg 04/15/19 22:00 04/15/19 21:52 Keppra Injection - IVPB 1,250 mg BID MEDINA Administration Melatonin 10 mg 04/15/19 08:22 04/15/19 22:00 Melatonin PO 10 mg HS PRN Administration sleep Midazolam HCl 5 mg 04/15/19 08:22 04/15/19 10:25 Versed - IVPUSH 5 mg ONCE PRN Administration seizure Phenol/Menthol 1 spray 04/12/19 12:40 04/12/19 13:26 Chloraseptic - MM 1 spray Q6HPO PRN Administration SORE THROAT Phenytoin Sodium 100 mg 04/15/19 22:00 04/16/19 06:52 Dilantin - PO 100 mg TID MEDINA Administration Prochlorperazine Maleate 10 mg 04/15/19 14:34 04/15/19 16:11 Compazine - PO 10 mg Q4H PRN Administration NAUSEA AND/OR VOMITING Scopolamine HBr 1 patch 04/10/19 01:15 04/16/19 01:53 Transderm-Scop - TD Not Given Q72H MEDINA Valproate Sodium 1,000 mg 04/15/19 14:00 04/16/19 06:52 Depacon Injection - IVPB 1,000 mg TID MEDINA Administration ASSESSMENT/PLAN: 38yo M with PMH of Opioid Dependence, Benzodiazepine Dependence, HLD brought to ICU for status epilepticus NEURO -Seizure disorder, BZ withdrawal -Neurology consulted (Dr. Briones) -Seizure and fall precautions -Depacon 1000 TID -Keppra 1250 BID -Dilantin 100mg TID -Ativan PRN, Versed PRN for breakthrough seizures -Depakote and Keppra levels -CT head does not show any changes from prior CT from admission ENDO -Hypokalemia, will replete -Trend lytes PULM -On room air -SpO2>90% -Aspiration precautions ID -Leukocytosis, likely reactive v. aspiration. Trending down -Trend FEN -Replete electrolytes as needed -Regular diet PROPHYLAXIS -SCDs Dispo Will monitor in ICU Visit type - Emergency Visit Emergency Visit: Yes ED Registration Date: 04/10/19 Care time: The patient presented to the Emergency Department on the above date and was hospitalized for further evaluation of their emergent condition. - New Patient This patient is new to me today: No - Critical Care Critical Care patient: Yes Total Critical Care Time (in minutes): 35 Critical Care Statement: The care of this patient involved high complexity decision making to prevent further life threatening deterioration of the patient 's condition and/or to evaluate & treat vital organ system(s) failure or risk of failure.
[2019-04-16] MEDS ORDERED: POTASSIUM CHLORIDE ORAL LIQUID 20 MEQ/15 ML PO ONE (08:22)
[2019-04-16] MEDS: levETIRAcetam 500 MG/5 ML INJECTION VIAL IVPB SCH ×2 (10:18→22:16)
[2019-04-16] MEDS: HEPARIN NA (PORCINE) 5,000 UNITS/ML 1ML VIAL SQ SCH (10:19)
[2019-04-16 11:25] LABS: ANISOCYTOSIS 0; MACROCYTOSIS 0; PLATELET ESTIMATE NORMAL
--- NOTE | 2019-04-16 11:35 | PN ---
Teaching Attending Note Name of Resident: Alana Redding ATTENDING PHYSICIAN STATEMENT I saw and evaluated the patient. I reviewed the resident's note and discussed the case with the resident. I agree with the resident's findings and plan as documented. SUBJECTIVE: Pt seen and examined in the ICU. Still with intermittent focal seizures with aura of dizziness. Antiepileptics adjusted by neurology. OBJECTIVE: Vital Signs Period Temp Pulse Resp BP Sys/Malcolm Pulse Ox Last 24 Hr 98.7 F-99.3 F 63-91 14-23 108-158/45-98 99-99 Intake & Output 04/13/19 04/14/19 04/15/19 04/16/19 23:59 23:59 23:59 23:59 Intake Total 2748 5364 3400 604 Output Total 1500 4060 3000 1400 Balance 1248 1304 400 -796 Weight 100.108 kg 98.43 kg Gen: NAD at rest Heart: RRR Lung: decreased breath sounds at the bases Abd: soft, nontender Ext: no edema CBC, BMP 04/16/19 05:30 04/16/19 05:30 Active Medications Heparin Sodium (Porcine) (Heparin -) 5,000 unit SQ BID [facility] Last Admin: 04/16/19 10:19 Dose: 5,000 unit Sodium Chloride (Normal Saline -) 1,000 mls @ 42 mls/hr IV ASDIR [facility] Last Admin: 04/15/19 18:27 Dose: 42 mls/hr Levetiracetam (Keppra Injection -) 1,250 mg IVPB BID [facility] Last Admin: 04/16/19 10:18 Dose: 1,250 mg Melatonin (Melatonin) 10 mg PO HS PRN PRN Reason: sleep Last Admin: 04/15/19 22:00 Dose: 10 mg Phenol/Menthol (Chloraseptic -) 1 spray MM Q6HPO PRN PRN Reason: SORE THROAT Last Admin: 04/12/19 13:26 Dose: 1 spray Phenytoin Sodium (Dilantin -) 100 mg PO TID [facility] Last Admin: 04/16/19 06:52 Dose: 100 mg Prochlorperazine Maleate (Compazine -) 10 mg PO Q4H PRN PRN Reason: NAUSEA AND/OR VOMITING Last Admin: 04/15/19 16:11 Dose: 10 mg Scopolamine HBr (Transderm-Scop -) 1 patch TD Q72H [facility] Last Admin: 04/16/19 01:53 Dose: Not Given Valproate Sodium (Depacon Injection -) 1,000 mg IVPB TID [facility] Last Admin: 04/16/19 06:52 Dose: 1,000 mg ASSESSMENT AND PLAN: s/p Acute Respiratory Failure Status Epilepticus Polysubstance Abuse HTN - titrate antiepileptics per neuro - aspiration precautions - O2 to keep SpO2 >90% - replete lytes - DVT prophylaxis - continue ICU monitoring critical care time spent in reviewing chart, evaluating patient and formulating plan 35 min
[2019-04-16] MEDS ORDERED: PT OWN MED DRAWER 7, Y5N ONE ×2 (12:44→22:06)
[2019-04-16] MEDS: PROCHLORPERAZINE MALEATE 5 MG TABLET PO PRN ×2 (12:47→22:18)
--- NOTE | 2019-04-16 17:20 | PN ---
Physical Exam: SUBJECTIVE: Patient seen and examined at the bedside. OBJECTIVE: Rapid response overnight for a fall in his room. had seizure when placed back into bed and was given versed. Vital Signs Period Temp Pulse Resp BP Sys/Malcolm Pulse Ox Last 24 Hr 98.2 F-99.3 F 63-91 14-19 108-158/45-98 99-100 GENERAL: lethargic on exam HEAD: Normal with no signs of trauma. head ct negative EYES: PERRL, extraocular movements intact, sclera anicteric, conjunctiva clear. No ptosis. LUNGS: Breath sounds equal, clear to auscultation HEART: Regular rate and rhythm, ABDOMEN: Soft, nontender, nondistended, normoactive bowel sounds, no guarding, EXTREMITIES: no edema. Laboratory Results - last 24 hr 04/16/19 04/16/19 05:30 05:30 WBC 10.4 H RBC 4.49 Hgb 13.2 Hct 37.5 MCV 83.5 MCH 29.4 MCHC 35.2 RDW 13.0 Plt Count 326 MPV 8.7 Absolute Neuts (auto) 6.8 Neutrophils % 64.7 Neutrophils % (Manual) 56.7 Band Neutrophils % 1.0 Lymphocytes % 27.0 Lymphocytes % (Manual) 30.9 Monocytes % 6.9 Monocytes % (Manual) 7 Eosinophils % 1.0 D Eosinophils % (Manual) 1.1 Basophils % 0.4 Basophils % (Manual) 1.0 Myelocytes % (Man) 0 Promyelocytes % (Man) 0 Blast Cells % (Manual) 0 Nucleated RBC % 0 Metamyelocytes 0 Hypochromia 0 Platelet Estimate Normal Polychromasia 0 Poikilocytosis 0 Anisocytosis 0 Microcytosis 0 Macrocytosis 0 Sodium 136 Potassium 3.1 L Chloride 100 Carbon Dioxide 27 Anion Gap 10 BUN 4 L Creatinine 0.8 Est GFR (CKD-EPI)AfAm 130.42 Est GFR (CKD-EPI)NonAf 112.53 Random Glucose 132 H Calcium 9.3 Phosphorus 3.7 Magnesium 2.0 Total Bilirubin 0.7 AST 14 L ALT 24 Alkaline Phosphatase 57 Total Protein 7.0 Albumin 3.7 Active Medications Generic Name Dose Route Start Last Admin Trade Name Freq PRN Reason Stop Dose Admin Heparin Sodium (Porcine) 5,000 unit 04/09/19 22:00 04/16/19 10:19 Heparin - SQ 5,000 unit BID MEDINA Administration Sodium Chloride 1,000 mls @ 42 mls/hr 04/15/19 17:30 04/15/19 18:27 Normal Saline - IV 42 mls/hr ASDIR MEDINA Administration Levetiracetam 1,250 mg 04/15/19 22:00 04/16/19 10:18 Keppra Injection - IVPB 1,250 mg BID MEDINA Administration Melatonin 10 mg 04/15/19 08:22 04/15/19 22:00 Melatonin PO 10 mg HS PRN Administration sleep Phenol/Menthol 1 spray 04/12/19 12:40 04/12/19 13:26 Chloraseptic - MM 1 spray Q6HPO PRN Administration SORE THROAT Phenytoin Sodium 100 mg 04/15/19 22:00 04/16/19 14:19 Dilantin - PO 100 mg TID MEDINA Administration Prochlorperazine Maleate 10 mg 04/15/19 14:34 04/16/19 12:47 Compazine - PO 10 mg Q4H PRN Administration NAUSEA AND/OR VOMITING Scopolamine HBr 1 patch 04/10/19 01:15 04/16/19 01:53 Transderm-Scop - TD Not Given Q72H [facility] Valproate Sodium 1,000 mg 04/15/19 14:00 04/16/19 14:19 Depacon Injection - IVPB 1,000 mg TID MEDINA Administration ASSESSMENT/PLAN: Patient is a 38 year old man with a history of hypertension, heroin/xanax abuse use who presented to the ED from [facility] after a witnessed seizure. Neuro: Status epilepticus Seizure disorder. Seizures likely secondary to benzo withdrawal. On Keppra 1250mg bid, also on Dilantin 100mg TID. will order ativan 2mg prn for any breakthrough seizures. Depakote and keppra levels pending. head ct negative for acute proces s/p fall. Management per ICU. seizure precautions ID: Leukocytosis, resolved one positive BC bottle, no signs of infection repeat cultures negative to date Pulm: On room air. extubated. Card: Hypertension. BP controlled off meds fen ivf monitor electrolytes clears prophy on SCDs, heparin bid Visit type - Emergency Visit Emergency Visit: Yes ED Registration Date: 04/10/19 Care time: The patient presented to the Emergency Department on the above date and was hospitalized for further evaluation of their emergent condition. - New Patient This patient is new to me today: No - Critical Care Critical Care patient: Yes Total Critical Care Time (in minutes): 45 Critical Care Statement: The care of this patient involved high complexity decision making to prevent further life threatening deterioration of the patient 's condition and/or to evaluate & treat vital organ system(s) failure or risk of failure.
[2019-04-16] MEDS ORDERED: LORazepam 2 MG/ML SDV VIAL IVPUSH PRN (17:30)
--- NOTE | 2019-04-16 18:30 | PN ---
Progress Note, Physician History of Present Illness: Event noted Chart reviewed 20 hours seziure free On Triple AED - Current Medication List Current Medications: Active Medications Heparin Sodium (Porcine) (Heparin -) 5,000 unit SQ BID [facility] Last Admin: 04/16/19 10:19 Dose: 5,000 unit Sodium Chloride (Normal Saline -) 1,000 mls @ 42 mls/hr IV ASDIR [facility] Last Admin: 04/15/19 18:27 Dose: 42 mls/hr Levetiracetam (Keppra Injection -) 1,250 mg IVPB BID [facility] Last Admin: 04/16/19 10:18 Dose: 1,250 mg Lorazepam (Ativan Injection -) 2 mg IVPUSH TID PRN PRN Reason: seizures Melatonin (Melatonin) 10 mg PO HS PRN PRN Reason: sleep Last Admin: 04/15/19 22:00 Dose: 10 mg Phenol/Menthol (Chloraseptic -) 1 spray MM Q6HPO PRN PRN Reason: SORE THROAT Last Admin: 04/12/19 13:26 Dose: 1 spray Phenytoin Sodium (Dilantin -) 100 mg PO TID [facility] Last Admin: 04/16/19 14:19 Dose: 100 mg Prochlorperazine Maleate (Compazine -) 10 mg PO Q4H PRN PRN Reason: NAUSEA AND/OR VOMITING Last Admin: 04/16/19 12:47 Dose: 10 mg Scopolamine HBr (Transderm-Scop -) 1 patch TD Q72H [facility] Last Admin: 04/16/19 01:53 Dose: Not Given Valproate Sodium (Depacon Injection -) 1,000 mg IVPB TID [facility] Last Admin: 04/16/19 14:19 Dose: 1,000 mg - Objective Vital Signs: Vital Signs Temperature 99.8 F H 04/16/19 16:00 Pulse Rate 94 H 04/16/19 16:00 Respiratory Rate 17 04/16/19 16:00 Blood Pressure 139/76 04/16/19 16:00 O2 Sat by Pulse Oximetry (%) 100 04/16/19 10:00 Constitutional: Yes: Well Nourished Eyes: Yes: WNL HENT: Yes: WNL Neurological: Yes: Alert, Oriented, Babinski negative ...Motor Strength: WNL Labs: CBC, BMP 04/16/19 05:30 05/16/19 05:30 Problem List - Problems (1) Seizure Assessment/Plan: 1. Neuro check s 2. Continue Dilantin 100 mg po q8 3. Check levels 4. Sz precaution Code(s): R56.9 - UNSPECIFIED CONVULSIONS
[2019-04-16] MEDS ORDERED: diphenhydrAMINE HCL 25 MG CAPSULE (FP) PO ONE (21:23)
[2019-04-16] MEDS ORDERED: IBUPROFEN 600 MG TABLET (FP) PO ONE (22:01)
[2019-04-16] MEDS: SODIUM CHLORIDE 1,000 ML IV SCH (22:17)
[2019-04-16] MEDS: MELATONIN 5 MG TABLETS PO PRN (22:17)
[2019-04-17] MEDS ORDERED: MIDAZOLAM HCL 5 MG/1 ML Single Dose Vial ONE ×4 (06:16→23:17)
[2019-04-17] MEDS ORDERED: PROPOFOL 40 ML ONE (06:23)
[2019-04-17] MEDS ORDERED: MIDAZOLAM HCL 5 MG/1 ML Single Dose Vial IVPUSH ONE ×3 (06:34→06:36)
[2019-04-17] MEDS ORDERED: PROPOFOL 200 MG/20 ML VIAL IVPUSH ONE ×4 (06:36→13:05)
--- NOTE | 2019-04-17 06:39 | RAPID ---
Physical Examination Vital Signs: Vital Signs Temperature 99.0 F 04/17/19 04:00 Pulse Rate 84 04/17/19 04:00 Respiratory Rate 16 04/17/19 04:00 Blood Pressure 96/46 L 04/17/19 04:00 O2 Sat by Pulse Oximetry (%) 98 04/16/19 22:00 pt has tonic clonic seizure last about 5 min break with 5 versed x3 and 2 mcg propofol pt is postictal, hemodynamically stable o2 sat 99% , BP 155/85 , HR 100
--- NOTE | 2019-04-17 06:40 | RAPID ---
Physical Examination Vital Signs: Vital Signs Temperature 99.0 F 04/17/19 04:00 Pulse Rate 84 04/17/19 04:00 Respiratory Rate 16 04/17/19 04:00 Blood Pressure 96/46 L 04/17/19 04:00 O2 Sat by Pulse Oximetry (%) 98 04/16/19 22:00 Findings/Remarks: Rapid called over head for patient seizing. Versed pushed and seizure did not break. 2 of propofol pushed and seizure broke. Will f/u lactic acid and prolactin. Discuss with Ignacio increasing antiepileptic medications for continuous seziures. Patient 02 dipped to 92, monitor patient on nonrebreather.
[2019-04-17 06:54] LABS: BASO % 0.6 % (0-2.0); EOS % 1.1 % (0-4.5); HEMATOCRIT 40.6 % (35.4-49); HEMOGLOBIN 14.3 GM/dL (11.7-16.9); LYMPH % 25.9 % (8-40); MCH 29.5 pg (25.7-33.7); MCHC 35.3 g/dl (32.0-35.9); MEAN CELL VOLUME 83.6 fl (80-96); MEAN PLT VOLUME 8.6 fl (7.5-11.1); MONO % 8.8 % (3.8-10.2); NEUT % 63.6 % (42.8-82.8); PLATELET COUNT 344 K/MM3 (134-434); RBC 4.85 M/mm3 (4.00-5.60); RDW 13.6 % (11.9-15.9); WHITE BLOOD COUNT 11.1 K/mm3 (4.0-10.0)
[2019-04-17] MEDS: VALPROATE SODIUM 500 MG/5 ML VIAL IVPB SCH ×3 (06:54→22:29)
[2019-04-17] MEDS: PHENYTOIN NA EXTENDED 100 MG CAPSULE (FP) PO SCH ×3 (06:54→22:27)
[2019-04-17 07:10] LABS: BILIRUBIN,TOTAL 0.5 mg/dL (0.2-1); CALCIUM 9.3 mg/dL (8.5-10.1); CREATININE 0.8 mg/dL (0.55-1.3); MAGNESIUM 2.2 mg/dL (1.8-2.4); PHOSPHOROUS 3.5 mg/dL (2.5-4.9); POTASSIUM 3.2 mmol/L (3.5-5.1); TOT PROT 7.6 g/dl (6.4-8.2)
[2019-04-17] MEDS ORDERED: POTASSIUM CHLORIDE TABS 20 MEQ TABLET.ER (FP) PO ONE (07:39)
--- NOTE | 2019-04-17 07:44 | PN ---
Physical Exam: SUBJECTIVE: Patient seen and examined at bedside. Had tonic-clonic like seizure activity overnight which broke after propofol, Versed did not break it. Had another tonic clonic mixed with coarse movements as well, started at approximately [id number]. Patient does not recall these events. States he feels tired and has generalized aches. *Patient seized again at approximately 1025 which broke with 40mg propofol. OBJECTIVE: Vital Signs Period Temp Pulse Resp BP Sys/Malcolm Pulse Ox Last 24 Hr 98.2 F-99.8 F 81-97 13-20 96-150/46-97 98-100 GENERAL: The patient is post ictal and sedated with propofol push given. HEAD: Normal with no signs of trauma. EYES: PERRL, sclera anicteric, conjunctiva clear. No ptosis. LUNGS: Breath sounds equal, clear to auscultation bilaterally, no wheezes, no crackles, no accessory muscle use. HEART: Regular rate and rhythm, S1, S2 without murmur, rub or gallop. ABDOMEN: Soft, nontender, nondistended, normoactive bowel sounds, no guarding, no rebound, no hepatosplenomegaly, no masses. EXTREMITIES: 2+ pulses, warm, well-perfused, no edema. NEUROLOGICAL: Cranial nerves II through XII grossly intact. Normal speech, gait not observed. SKIN: Warm, dry, normal turgor, no rashes or lesions noted Laboratory Results - last 24 hr 04/15/19 04/16/19 04/17/19 11:11 05:30 05:30 WBC 10.4 H 11.1 H RBC 4.49 4.85 Hgb 13.2 14.3 Hct 37.5 40.6 MCV 83.5 83.6 MCH 29.4 29.5 MCHC 35.2 35.3 RDW 13.0 13.6 Plt Count 326 344 MPV 8.7 8.6 Absolute Neuts (auto) 6.8 7.1 Neutrophils % 64.7 63.6 Neutrophils % (Manual) 56.7 Band Neutrophils % 1.0 Lymphocytes % 27.0 25.9 Lymphocytes % (Manual) 30.9 Monocytes % 6.9 8.8 Monocytes % (Manual) 7 Eosinophils % 1.0 D 1.1 Eosinophils % (Manual) 1.1 Basophils % 0.4 0.6 Basophils % (Manual) 1.0 Myelocytes % (Man) 0 Promyelocytes % (Man) 0 Blast Cells % (Manual) 0 Nucleated RBC % 0 0 Metamyelocytes 0 Hypochromia 0 Platelet Estimate Normal Polychromasia 0 Poikilocytosis 0 Anisocytosis 0 Microcytosis 0 Macrocytosis 0 Sodium Potassium Chloride Carbon Dioxide Anion Gap BUN Creatinine Est GFR (CKD-EPI)AfAm Est GFR (CKD-EPI)NonAf Random Glucose Calcium Phosphorus Magnesium Total Bilirubin AST ALT Alkaline Phosphatase Total Protein Albumin Prolactin 48.6 H 04/17/19 05:30 WBC RBC Hgb Hct MCV MCH MCHC RDW Plt Count MPV Absolute Neuts (auto) Neutrophils % Neutrophils % (Manual) Band Neutrophils % Lymphocytes % Lymphocytes % (Manual) Monocytes % Monocytes % (Manual) Eosinophils % Eosinophils % (Manual) Basophils % Basophils % (Manual) Myelocytes % (Man) Promyelocytes % (Man) Blast Cells % (Manual) Nucleated RBC % Metamyelocytes Hypochromia Platelet Estimate Polychromasia Poikilocytosis Anisocytosis Microcytosis Macrocytosis Sodium 138 Potassium 3.2 L Chloride 101 Carbon Dioxide 27 Anion Gap 10 BUN 7 Creatinine 0.8 Est GFR (CKD-EPI)AfAm 130.42 Est GFR (CKD-EPI)NonAf 112.53 Random Glucose 104 Calcium 9.3 Phosphorus 3.5 Magnesium 2.2 Total Bilirubin 0.5 AST 12 L ALT 26 Alkaline Phosphatase 56 Total Protein 7.6 Albumin 4.0 Prolactin Active Medications Generic Name Dose Route Start Last Admin Trade Name Freq PRN Reason Stop Dose Admin Sodium Chloride 1,000 mls @ 42 mls/hr 04/15/19 17:30 04/16/19 22:17 Normal Saline - IV 42 mls/hr ASDIR MEDINA Administration Levetiracetam 1,250 mg 04/15/19 22:00 04/16/19 22:16 Keppra Injection - IVPB 1,250 mg BID [facility] Administration Lorazepam 2 mg 04/16/19 17:30 Ativan Injection - IVPUSH TID PRN seizures Melatonin 10 mg 04/15/19 08:22 04/16/19 22:17 Melatonin PO 10 mg HS PRN Administration sleep Phenol/Menthol 1 spray 04/12/19 12:40 04/12/19 13:26 Chloraseptic - MM 1 spray Q6HPO PRN Administration SORE THROAT Phenytoin Sodium 100 mg 04/15/19 22:00 04/17/19 06:54 Dilantin - PO 100 mg TID [facility] Administration Potassium Chloride 40 meq 04/17/19 07:39 K-Dur - PO 04/17/19 07:40 ONCE ONE Prochlorperazine Maleate 10 mg 04/15/19 14:34 04/16/19 22:18 Compazine - PO 10 mg Q4H PRN Administration NAUSEA AND/OR VOMITING Scopolamine HBr 1 patch 04/10/19 01:15 04/16/19 01:53 Transderm-Scop - TD Not Given Q72H [facility] Valproate Sodium 1,000 mg 04/15/19 14:00 04/17/19 06:54 Depacon Injection - IVPB 1,000 mg TID [facility] Administration ASSESSMENT/PLAN: 38yo M with PMH of Opioid Dependence, Benzodiazepine Dependence, HLD brought to ICU for status epilepticus NEURO -Seizure disorder, BZ withdrawal -Neurology consulted (Dr. Briones) -CT head normal -Seizure and fall precautions -Depacon 1000 TID -Keppra 1250 BID -Dilantin 100mg TID -Ativan PRN, Versed PRN for breakthrough seizures -Depakote levels therapeutic -Dilantin levels subtherapeutic -Pending Keppra levels -Elevated prolactin level -Will start giving Klonopin 0.5mg -EEG -MRI once seizure free for 24h ENDO -Hypokalemia, will replete -Trend lytes PULM -On room air -SpO2>90% -Aspiration precautions ID -Leukocytosis, likely reactive -Will trend FEN -Replete electrolytes as needed -Regular diet PROPHYLAXIS -SCDs Dispo Will monitor in ICU Visit type - Emergency Visit Emergency Visit: Yes ED Registration Date: 04/10/19 Care time: The patient presented to the Emergency Department on the above date and was hospitalized for further evaluation of their emergent condition. - New Patient This patient is new to me today: No - Critical Care Critical Care patient: Yes Total Critical Care Time (in minutes): 35 Critical Care Statement: The care of this patient involved high complexity decision making to prevent further life threatening deterioration of the patient 's condition and/or to evaluate & treat vital organ system(s) failure or risk of failure.
[2019-04-17] MEDS ORDERED: PT OWN MED DRAWER 7, Y5N ONE ×3 (09:26→22:38)
[2019-04-17] MEDS: levETIRAcetam 500 MG/5 ML INJECTION VIAL IVPB SCH ×2 (09:47→22:29)
[2019-04-17] MEDS: PROCHLORPERAZINE MALEATE 5 MG TABLET PO PRN ×2 (09:51→20:07)
[2019-04-17] MEDS ORDERED: clonazePAM 0.5 MG TABLET PO ONE ×2 (10:27→21:03)
[2019-04-17 10:33] LABS: ANISOCYTOSIS 0; MACROCYTOSIS 0; PLATELET ESTIMATE NORMAL
[2019-04-17] MEDS ORDERED: FOSPHENYTOIN SODIUM IVPB ONE (11:30)
[2019-04-17] MEDS ORDERED: DEXTROSE 5% IVPB ONE (11:30)
[2019-04-17] MEDS ORDERED: WATER IVPB ONE (11:30)
--- NOTE | 2019-04-17 12:00 | PN ---
Teaching Attending Note Name of Resident: Alana Redding ATTENDING PHYSICIAN STATEMENT I saw and evaluated the patient. I reviewed the resident's note and discussed the case with the resident. I agree with the resident's findings and plan as documented. SUBJECTIVE: Patient seen and examined in the ICU. Seizure at 8:30 AM. Now awake and alert. Has not has a 24 hour period without a seizure. OBJECTIVE: Intake & Output 04/14/19 04/15/19 04/16/19 04/17/19 23:59 23:59 23:59 23:59 Intake Total 5364 3400 1666 604 Output Total 4060 3000 2700 300 Balance 1304 400 -1034 304 Weight 220 lb 11.2 oz 217 lb Last Vital Signs Temp Pulse Resp BP Pulse Ox 98.6 F 80 17 162/133 H 95 04/17/19 10:00 04/17/19 10:00 04/17/19 10:00 04/17/19 10:00 04/17/19 10:00 Active Medications Sodium Chloride (Normal Saline -) 1,000 mls @ 42 mls/hr IV ASDIR [facility] Last Admin: 04/16/19 22:17 Dose: 42 mls/hr Levetiracetam (Keppra Injection -) 1,250 mg IVPB BID [facility] Last Admin: 04/17/19 09:47 Dose: 1,250 mg Lorazepam (Ativan Injection -) 2 mg IVPUSH TID PRN PRN Reason: seizures Last Admin: 04/17/19 08:25 Dose: 2 mg Melatonin (Melatonin) 10 mg PO HS PRN PRN Reason: sleep Last Admin: 04/16/19 22:17 Dose: 10 mg Phenol/Menthol (Chloraseptic -) 1 spray MM Q6HPO PRN PRN Reason: SORE THROAT Last Admin: 04/12/19 13:26 Dose: 1 spray Phenytoin Sodium (Dilantin -) 100 mg PO TID [facility] Last Admin: 04/17/19 06:54 Dose: 100 mg Prochlorperazine Maleate (Compazine -) 10 mg PO Q4H PRN PRN Reason: NAUSEA AND/OR VOMITING Last Admin: 04/17/19 09:51 Dose: 10 mg Scopolamine HBr (Transderm-Scop -) 1 patch TD Q72H [facility] Last Admin: 04/16/19 01:53 Dose: Not Given Valproate Sodium (Depacon Injection -) 1,000 mg IVPB TID [facility] Last Admin: 04/17/19 06:54 Dose: 1,000 mg Gen: NAD at rest Heart: RRR Lung: decreased breath sounds at the bases Abd: soft, nontender Ext: no edema Laboratory Results - last 24 hr 04/15/19 04/16/19 04/17/19 11:11 05:30 05:30 WBC 11.1 H RBC 4.85 Hgb 14.3 Hct 40.6 MCV 83.6 MCH 29.5 MCHC 35.3 RDW 13.6 Plt Count 344 MPV 8.6 Absolute Neuts (auto) 7.1 Neutrophils % 63.6 Neutrophils % (Manual) 56.7 66.7 Band Neutrophils % 1.0 0.0 Lymphocytes % 25.9 Lymphocytes % (Manual) 30.9 25.2 Monocytes % 8.8 Monocytes % (Manual) 7 5 Eosinophils % 1.1 Eosinophils % (Manual) 1.1 0.0 D Basophils % 0.6 Basophils % (Manual) 1.0 0.9 Myelocytes % (Man) 0 1 D Promyelocytes % (Man) 0 0 Blast Cells % (Manual) 0 0 Nucleated RBC % 0 Metamyelocytes 0 0 Hypochromia 0 0 Platelet Estimate Normal Normal Polychromasia 0 0 Poikilocytosis 0 0 Anisocytosis 0 0 Microcytosis 0 0 Macrocytosis 0 0 Sodium Potassium Chloride Carbon Dioxide Anion Gap BUN Creatinine Est GFR (CKD-EPI)AfAm Est GFR (CKD-EPI)NonAf Random Glucose Lactic Acid Calcium Phosphorus Magnesium Total Bilirubin AST ALT Alkaline Phosphatase Total Protein Albumin Prolactin 48.6 H Phenytoin 04/17/19 04/17/19 04/17/19 05:30 05:30 08:50 WBC RBC Hgb Hct MCV MCH MCHC RDW Plt Count MPV Absolute Neuts (auto) Neutrophils % Neutrophils % (Manual) Band Neutrophils % Lymphocytes % Lymphocytes % (Manual) Monocytes % Monocytes % (Manual) Eosinophils % Eosinophils % (Manual) Basophils % Basophils % (Manual) Myelocytes % (Man) Promyelocytes % (Man) Blast Cells % (Manual) Nucleated RBC % Metamyelocytes Hypochromia Platelet Estimate Polychromasia Poikilocytosis Anisocytosis Microcytosis Macrocytosis Sodium 138 Potassium 3.2 L Chloride 101 Carbon Dioxide 27 Anion Gap 10 BUN 7 Creatinine 0.8 Est GFR (CKD-EPI)AfAm 130.42 Est GFR (CKD-EPI)NonAf 112.53 Random Glucose 104 Lactic Acid 0.6 Calcium 9.3 Phosphorus 3.5 Magnesium 2.2 Total Bilirubin 0.5 AST 12 L ALT 26 Alkaline Phosphatase 56 Total Protein 7.6 Albumin 4.0 Prolactin Phenytoin 6.6 L ASSESSMENT AND PLAN: s/p Acute Respiratory Failure Status Epilepticus Polysubstance Abuse HTN - titrate antiepileptics per neuro - Add low dose clonazepam - aspiration precautions - O2 to keep SpO2 >90% - replete lytes - DVT prophylaxis - continue ICU monitoring for poorly controlled seizures Dr Rice Critical care time spent in reviewing chart, evaluating patient and formulating plan 35 min
[2019-04-17] MEDS ORDERED: PROPOFOL 20 ML ONE ×2 (13:12→23:08)
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
--- NOTE | 2019-04-17 14:46 | HOSP ---
Subjective - Review of Symptoms Events since last encounter: Dr. Redding spoke to the patient regarding transfer to [facility] for uncontrolled seizure activities. Patient refused the transfer and stated he doesn't know anybody there. I spoke to the patient myself and re-state the benefits over risks of the transfer. Patient is still not agreeable to the transfer. I then spoke to Dr. Pierre regarding today's new episodes of seizures, he would make necessary medication changes. Nurse in charge attempted to convince him about the transfer. He adamantly refused the transfer again. Physical Examination Vital Signs: Vital Signs Temperature 98.6 F 04/17/19 10:00 Pulse Rate 80 04/17/19 10:00 Respiratory Rate 17 04/17/19 10:00 Blood Pressure 162/133 H 04/17/19 10:00 O2 Sat by Pulse Oximetry (%) 95 04/17/19 10:00 Labs: CBC, BMP 04/17/19 05:30 04/17/19 05:30 Visit type - Emergency Visit Emergency Visit: No - New Patient This patient is new to me today: No - Critical Care Critical Care patient: Yes Total Critical Care Time (in minutes): 35 Critical Care Statement: The care of this patient involved high complexity decision making to prevent further life threatening deterioration of the patient 's condition and/or to evaluate & treat vital organ system(s) failure or risk of failure.
[2019-04-17] MEDS ORDERED: LOPERAMIDE HCL 2 MG CAPSULE PO ONE (18:39)
[2019-04-17] MEDS: SODIUM CHLORIDE 1,000 ML IV SCH (19:17)
[2019-04-17] MEDS: Lacosamide 200 MG/20 ML VIAL IVPB SCH (22:29)
[2019-04-17] MEDS ORDERED: MAG HYDROX/AL HYDROX/SIMETH 30 ML UNIT-DOSE CUP PO ONE (22:37)
--- NOTE | 2019-04-17 23:27 | HOSP ---
Subjective - Review of Symptoms Events since last encounter: Noted by RN that patient's having grand mal seizure. Gave total of 25mg propofol IVP and 15mg of versed IVP. Seizure aborted shortly after and lasted about 13 minutes. Patient is now awake and conversing. Will intubate and sedate the patient if seizure activity recurs. Physical Examination Vital Signs: Vital Signs Temperature 98.7 F 04/17/19 22:00 Pulse Rate 92 H 04/17/19 22:00 Respiratory Rate 16 04/17/19 22:00 Blood Pressure 149/106 H 04/17/19 22:00 O2 Sat by Pulse Oximetry (%) 96 04/17/19 22:00 Labs: CBC, BMP 04/17/19 05:30 04/17/19 05:30 Visit type - Emergency Visit Emergency Visit: No - New Patient This patient is new to me today: No - Critical Care Critical Care patient: Yes Total Critical Care Time (in minutes): 35 Critical Care Statement: The care of this patient involved high complexity decision making to prevent further life threatening deterioration of the patient 's condition and/or to evaluate & treat vital organ system(s) failure or risk of failure.
[2019-04-18] MEDS ORDERED: FOSPHENYTOIN SODIUM 500 MG/10 ML IVPB ONE (01:03)
[2019-04-18] MEDS: VALPROATE SODIUM 500 MG/5 ML VIAL IVPB SCH ×2 (05:36→21:12)
[2019-04-18 06:17] LABS: BASO % 0.4 % (0-2.0); EOS % 0.7 % (0-4.5); HEMATOCRIT 40.3 % (35.4-49); HEMOGLOBIN 14.2 GM/dL (11.7-16.9); LYMPH % 24.6 % (8-40); MCH 29.7 pg (25.7-33.7); MCHC 35.3 g/dl (32.0-35.9); MEAN PLT VOLUME 8.3 fl (7.5-11.1); NEUT % 66.3 % (42.8-82.8); PLATELET COUNT 355 K/MM3 (134-434); RBC 4.79 M/mm3 (4.00-5.60); RDW 13.2 % (11.9-15.9); WHITE BLOOD COUNT 10.6 K/mm3 (4.0-10.0)
[2019-04-18] MEDS ORDERED: PT OWN MED DRAWER 7, Y5N ONE (06:51)
[2019-04-18 06:52] LABS: ALBUMIN 3.9 g/dl (3.4-5.0); BILIRUBIN,TOTAL 0.5 mg/dL (0.2-1); CREATININE 0.8 mg/dL (0.55-1.3); MAGNESIUM 2.5 mg/dL (1.8-2.4); PHOSPHOROUS 4.4 mg/dL (2.5-4.9); POTASSIUM 3.3 mmol/L (3.5-5.1); TOT PROT 7.3 g/dl (6.4-8.2)
[2019-04-18] MEDS: PHENYTOIN NA EXTENDED 100 MG CAPSULE (FP) PO SCH ×2 (07:19→21:12)
--- NOTE | 2019-04-18 10:25 | PN ---
Progress Note (short form) - Note Progress Note: PULM/CCM SUBJECTIVE: -seen and exmained in ICU -seizures overnight per Resident -this am, found on floor after coming out of bathroom, c-collar placed and sent for CT head and neck -refused transfer to [facility] -neuro following and adjusting AE OBJECTIVE: Vital Signs Temp 99.0 F 04/18/19 06:00 Pulse 94 H 04/18/19 07:25 Resp 16 04/18/19 07:25 BP 154/95 04/18/19 07:25 Pulse Ox 96 04/17/19 22:00 Intake & Output 04/17/19 04/17/19 04/18/19 11:59 23:59 11:59 Intake Total 604 400 604 Output Total 300 400 Balance 304 0 604 Weight 93.349 kg Intake: IV 504 400 604 Normal Saline - 1,000 ml 504 504 @ 42 mls/hr IV ASDIR [facility] Rx#:[id number] Saline Lock 2 400 100 IVPB 100 Output: Urine 300 400 Void 300 400 Other: Voiding Method Urinal Urinal Bowel Movement No No Yes # Bowel Movements 2 Weight [facility] Active Medications Sodium Chloride (Normal Saline -) 1,000 mls @ 42 mls/hr IV ASDIR [facility] Last Admin: 04/17/19 19:17 Dose: 42 mls/hr Lacosamide (Vimpat Injection -) 100 mg IVPB BID [facility] Last Admin: 04/17/19 22:29 Dose: 100 mg Levetiracetam (Keppra Injection -) 1,500 mg IVPB BID [facility] Last Admin: 04/17/19 22:29 Dose: 1,500 mg Lorazepam (Ativan Injection -) 2 mg IVPUSH TID PRN PRN Reason: seizures Last Admin: 04/17/19 08:25 Dose: 2 mg Melatonin (Melatonin) 10 mg PO HS PRN PRN Reason: sleep Last Admin: 04/16/19 22:17 Dose: 10 mg Phenol/Menthol (Chloraseptic -) 1 spray MM Q6HPO PRN PRN Reason: SORE THROAT Last Admin: 04/12/19 13:26 Dose: 1 spray Phenytoin Sodium (Dilantin -) 100 mg PO TID [facility] Last Admin: 04/18/19 07:19 Dose: 100 mg Prochlorperazine Maleate (Compazine -) 10 mg PO Q4H PRN PRN Reason: NAUSEA AND/OR VOMITING Last Admin: 04/17/19 20:07 Dose: 10 mg Scopolamine HBr (Transderm-Scop -) 1 patch TD Q72H [facility] Last Admin: 04/16/19 01:53 Dose: Not Given Valproate Sodium (Depacon Injection -) 1,000 mg IVPB TID [facility] Last Admin: 04/18/19 05:36 Dose: 1,000 mg Gen: NAD at rest, c-collar in place Heart: RRR Lung: decreased breath sounds at the bases Abd: soft, nontender Ext: no edema Neuro: follows simple commands, despondent at times. Non-focal exam Laboratory Results - last 24 hr 04/15/19 04/17/19 04/17/19 05:30 05:30 20:37 WBC RBC Hgb Hct MCV MCH MCHC RDW Plt Count MPV Absolute Neuts (auto) Neutrophils % Neutrophils % (Manual) 66.7 Band Neutrophils % 0.0 Lymphocytes % Lymphocytes % (Manual) 25.2 Monocytes % Monocytes % (Manual) 5 Eosinophils % Eosinophils % (Manual) 0.0 D Basophils % Basophils % (Manual) 0.9 Myelocytes % (Man) 1 D Promyelocytes % (Man) 0 Blast Cells % (Manual) 0 Nucleated RBC % Metamyelocytes 0 Hypochromia 0 Platelet Estimate Normal Polychromasia 0 Poikilocytosis 0 Anisocytosis 0 Microcytosis 0 Macrocytosis 0 Sodium Potassium Chloride Carbon Dioxide Anion Gap BUN Creatinine Est GFR (CKD-EPI)AfAm Est GFR (CKD-EPI)NonAf Random Glucose Calcium Phosphorus Magnesium Total Bilirubin AST ALT Alkaline Phosphatase Total Protein Albumin Phenytoin 8.3 L Levetiracetam 11.4 04/18/19 04/18/19 04/18/19 05:30 05:30 07:15 WBC 10.6 H RBC 4.79 Hgb 14.2 Hct 40.3 MCV 84.0 MCH 29.7 MCHC 35.3 RDW 13.2 Plt Count 355 MPV 8.3 Absolute Neuts (auto) 7.0 Neutrophils % 66.3 Neutrophils % (Manual) Band Neutrophils % Lymphocytes % 24.6 Lymphocytes % (Manual) Monocytes % 8.0 Monocytes % (Manual) Eosinophils % 0.7 Eosinophils % (Manual) Basophils % 0.4 Basophils % (Manual) Myelocytes % (Man) Promyelocytes % (Man) Blast Cells % (Manual) Nucleated RBC % 0 Metamyelocytes Hypochromia Platelet Estimate Polychromasia Poikilocytosis Anisocytosis Microcytosis Macrocytosis Sodium 137 Potassium 3.3 L Chloride 101 Carbon Dioxide 26 Anion Gap 10 BUN 7 Creatinine 0.8 Est GFR (CKD-EPI)AfAm 130.42 Est GFR (CKD-EPI)NonAf 112.53 Random Glucose 123 H Calcium 9.0 Phosphorus 4.4 Magnesium 2.5 H Total Bilirubin 0.5 AST 7 L ALT 22 Alkaline Phosphatase 50 Total Protein 7.3 Albumin 3.9 Phenytoin 13.1 Levetiracetam ASSESSMENT AND PLAN: s/p Acute Respiratory Failure Status Epilepticus Polysubstance Abuse HTN -F/u CT head and neck read. - titrate antiepileptics per neuro - aspiration precautions - O2 to keep SpO2 >90% - replete lytes as needed - DVT prophylaxis - continue ICU monitoring for poorly controlled seizures - saeid to manage falls risk Cecile LUXP 2280 35 CCT
[2019-04-18] MEDS: levETIRAcetam 500 MG/5 ML INJECTION VIAL IVPB SCH ×2 (11:31→21:12)
[2019-04-18] MEDS: Lacosamide 200 MG/20 ML VIAL IVPB SCH ×2 (11:32→21:13)
[2019-04-18 11:58] LABS: ANISOCYTOSIS 0; MACROCYTOSIS 0; PLATELET ESTIMATE NORMAL
[2019-04-18] MEDS: PROCHLORPERAZINE MALEATE 5 MG TABLET PO PRN (12:50)
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
[2019-04-18] MEDS: SODIUM CHLORIDE 1,000 ML IV SCH (19:57)
[2019-04-18] MEDS: BENZOCAINE/MENTH/CETYLPYRD CL 1 EACH LOZENGE MM PRN (22:46)
[2019-04-19] MEDS: SCOPOLAMINE HYDROBROMIDE 1 PATCH PATCH.TD72 TD SCH (03:39)
[2019-04-19] MEDS: PROCHLORPERAZINE MALEATE 5 MG TABLET PO PRN ×2 (06:40→20:54)
[2019-04-19] MEDS: PHENYTOIN NA EXTENDED 100 MG CAPSULE (FP) PO SCH ×5 (06:40→20:59)
[2019-04-19] MEDS: VALPROATE SODIUM 500 MG/5 ML VIAL IVPB SCH ×4 (06:41→20:59)
[2019-04-19] MEDS: BENZOCAINE/MENTH/CETYLPYRD CL 1 EACH LOZENGE MM PRN (06:58)
[2019-04-19 08:19] LABS: BASO % 0.3 % (0-2.0); EOS % 0.3 % (0-4.5); HEMATOCRIT 40.8 % (35.4-49); HEMOGLOBIN 14.1 GM/dL (11.7-16.9); LYMPH % 22.8 % (8-40); MCH 29.3 pg (25.7-33.7); MCHC 34.5 g/dl (32.0-35.9); MEAN CELL VOLUME 84.8 fl (80-96); MEAN PLT VOLUME 8.4 fl (7.5-11.1); MONO % 8.1 % (3.8-10.2); NEUT % 68.5 % (42.8-82.8); PLATELET COUNT 341 K/MM3 (134-434); RDW 13.7 % (11.9-15.9); WHITE BLOOD COUNT 11.9 K/mm3 (4.0-10.0)
--- NOTE | 2019-04-19 08:24 | PN ---
Progress Note (short form) - Note Progress Note: PULM/CCM PULM/CCM SUBJECTIVE: -greater than 45min pseudo sz last night, resolved without intervention (there was no incontinence, no sonorous resp, no tonic/clonic cresendo/decrescendo pattern, there was grimacing to noxious stimuli OBJECTIVE: Vital Signs Temp 99.2 F 04/19/19 07:00 Pulse 99 H 04/19/19 07:00 Resp 12 04/19/19 07:00 BP 156/109 H 04/19/19 07:00 Pulse Ox 96 04/19/19 03:00 Intake & Output 04/18/19 04/18/19 04/19/19 11:59 23:59 11:59 Intake Total 604 1054 1064 Output Total 1550 300 Balance 604 -496 764 Weight 93.349 kg Intake: IV 604 514 514 Normal Saline - 1,000 ml 504 504 504 @ 42 mls/hr IV ASDIR [facility] Rx#:[id number] Saline Lock 10 10 Saline Lock 2 100 IVPB 300 100 Oral 240 450 Output: Urine 1550 300 Void 1550 300 Other: Voiding Method Urinal Urinal Bowel Movement Yes No No # Bowel Movements 2 1 Weight Measurement Method Built in [facility] Active Medications Acetaminophen (Tylenol -) 650 mg PO Q4H PRN PRN Reason: MILD PAIN Benzocaine/Menthol (Cepacol Lozenge -) 1 each MM PRN PRN PRN Reason: SORE THROAT Last Admin: 04/19/19 06:58 Dose: 1 each Sodium Chloride (Normal Saline -) 1,000 mls @ 42 mls/hr IV ASDIR [facility] Last Admin: 04/18/19 19:57 Dose: Not Given Lacosamide (Vimpat Injection -) 100 mg IVPB BID [facility] Last Admin: 04/18/19 21:13 Dose: 100 mg Levetiracetam (Keppra Injection -) 1,500 mg IVPB BID [facility] Last Admin: 04/18/19 21:12 Dose: 1,500 mg Lorazepam (Ativan Injection -) 2 mg IVPUSH TID PRN PRN Reason: seizures Last Admin: 04/17/19 08:25 Dose: 2 mg Melatonin (Melatonin) 10 mg PO HS PRN PRN Reason: sleep Last Admin: 04/16/19 22:17 Dose: 10 mg Phenol/Menthol (Chloraseptic -) 1 spray MM Q6HPO PRN PRN Reason: SORE THROAT Last Admin: 04/12/19 13:26 Dose: 1 spray Phenytoin Sodium (Dilantin -) 100 mg PO TID [facility] Last Admin: 04/19/19 06:40 Dose: 100 mg Prochlorperazine Maleate (Compazine -) 10 mg PO Q4H PRN PRN Reason: NAUSEA AND/OR VOMITING Last Admin: 04/19/19 06:40 Dose: 10 mg Valproate Sodium (Depacon Injection -) 1,000 mg IVPB TID [facility] Last Admin: 04/19/19 06:41 Dose: 1,000 mg Gen: NAD at rest Heart: RRR Lung: decreased breath sounds at the bases Abd: soft, nontender Ext: no edema Neuro: awake alert LAB iday ASSESSMENT AND PLAN: s/p Acute Respiratory Failure Status Epilepticus Polysubstance Abuse HTN - titrate antiepileptics per neuro, suggest titrating to off - aspiration precautions - O2 to keep SpO2 >90% - replete lytes as needed, will recheck labs tomorrow/saturday - DVT prophylaxis - ok for floor - saeid to manage falls risk Cecile LUXP [id number] CCT
[2019-04-19 08:43] LABS: ALBUMIN 3.9 g/dl (3.4-5.0); BILIRUBIN,TOTAL 0.5 mg/dL (0.2-1); CALCIUM 9.1 mg/dL (8.5-10.1); CREATININE 0.7 mg/dL (0.55-1.3); MAGNESIUM 2.5 mg/dL (1.8-2.4); POTASSIUM 3.2 mmol/L (3.5-5.1); TOT PROT 7.2 g/dl (6.4-8.2)
--- NOTE | 2019-04-19 09:32 | PN ---
Progress Note, Physician History of Present Illness: events noted Chart reviwed Again almost daily episodes of "?? seizure like activity" asscoiated with standing going to [facility] bathroom No hurting himself No injury no tongue biting no urinary incontinence Refused transfer to [facility] I personally never saw any of these episodes - Current Medication List Current Medications: Active Medications Acetaminophen (Tylenol -) 650 mg PO Q4H PRN PRN Reason: MILD PAIN Benzocaine/Menthol (Cepacol Lozenge -) 1 each MM PRN PRN PRN Reason: SORE THROAT Last Admin: 04/19/19 06:58 Dose: 1 each Sodium Chloride (Normal Saline -) 1,000 mls @ 42 mls/hr IV ASDIR [facility] Last Admin: 04/18/19 19:57 Dose: Not Given Potassium Chloride (Potassium Chloride 10 Meq Premix Ivpb -) 10 meq in 100 mls @ 100 mls/hr IVPB Q60M [facility] Stop: 04/19/19 10:59 Lorazepam (Ativan Injection -) 2 mg IVPUSH TID PRN PRN Reason: seizures Last Admin: 04/17/19 08:25 Dose: 2 mg Melatonin (Melatonin) 10 mg PO HS PRN PRN Reason: sleep Last Admin: 04/16/19 22:17 Dose: 10 mg Phenol/Menthol (Chloraseptic -) 1 spray MM Q6HPO PRN PRN Reason: SORE THROAT Last Admin: 04/12/19 13:26 Dose: 1 spray Phenytoin Sodium (Dilantin -) 100 mg PO TID [facility] Last Admin: 04/19/19 06:40 Dose: 100 mg Prochlorperazine Maleate (Compazine -) 10 mg PO Q4H PRN PRN Reason: NAUSEA AND/OR VOMITING Last Admin: 04/19/19 06:40 Dose: 10 mg Valproate Sodium (Depacon Injection -) 1,000 mg IVPB TID [facility] Last Admin: 04/19/19 06:41 Dose: 1,000 mg - Objective Vital Signs: Vital Signs Temperature 99.2 F 04/19/19 07:00 Pulse Rate 89 04/19/19 08:00 Respiratory Rate 18 04/19/19 08:00 Blood Pressure 144/90 04/19/19 08:00 O2 Sat by Pulse Oximetry (%) 96 04/19/19 03:00 Labs: CBC, BMP 04/19/19 08:00 04/19/19 08:00 Problem List - Problems (1) Seizure Assessment/Plan: PSEUDOSEZIURE 1. STOP KEPPRA 2. STOP VIMPAT 3. CONTINUE VPA 4. PYSCH EVAL Code(s): R56.9 - UNSPECIFIED CONVULSIONS
[2019-04-19] MEDS: KCL 10 MEQ IVPB 10 MEQ/100 ML INFUS.BAG IVPB SCH ×2 (10:30→11:30)
[2019-04-19 11:11] LABS: PLATELET ESTIMATE ADEQUATE
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
[2019-04-19] MEDS: ACETAMINOPHEN 325 MG TABLET (FP) PO PRN ×2 (17:40→18:00)
[2019-04-19] MEDS: SODIUM CHLORIDE 1,000 ML IV SCH (18:00)
[2019-04-19] MEDS: MELATONIN 5 MG TABLETS PO PRN (21:36)
--- NOTE | 2019-04-19 22:00 | PN ---
Mental Health Exam - Mental Status Exam Alert and Oriented to: Time, Place, Person Cognitive Function: Grossly Intact Patient Appearance: Unkempt Mood: Apathetic, Anxious, Apprehensive Affect: Mood Congruent Patient Behavior: Dependent, Cooperative Speech Pattern: Clear Voice Loudness: Normal Thought Process: Intact Thought Disorder: Not Present Hallucinations: None Suicidal Ideation: None Homicidal Ideation: None Insight/Judgement: Good, Fair Sleep: Fair Appetite: Fair Muscle strength/Tone: Moderate Hypotonicity Gait/Station: Ataxic (c) Additional Comments: Client is a 38 yo male seen in ICU setting. He has htn, use large quantity of heroin, and 12 xanax from [facility]. Client is in high opiate use community but denies suicidal plan or intent. Over 7 friends already passed from opiates/or suicide. Has grief, tearful, poor sleep, client is emotionally hurt with loss. 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 recommend follow up At [facility] Community services on [address] request substance use counselling, [facility]. No willing to have anti depressant currently.
[2019-04-19] MEDS ORDERED: LORazepam 1 MG TABLET PO ONE (23:18)
[2019-04-20] MEDS: ACETAMINOPHEN 325 MG TABLET (FP) PO PRN ×3 (02:56→22:07)
[2019-04-20] MEDS: PHENYTOIN NA EXTENDED 100 MG CAPSULE (FP) PO SCH ×2 (05:56→15:15)
[2019-04-20] MEDS: VALPROATE SODIUM 500 MG/5 ML VIAL IVPB SCH ×3 (05:56→22:07)
[2019-04-20 05:59] LABS: BASO % 0.4 % (0-2.0); EOS % 0.7 % (0-4.5); HEMATOCRIT 40.4 % (35.4-49); HEMOGLOBIN 14.2 GM/dL (11.7-16.9); LYMPH % 27.2 % (8-40); MCH 29.8 pg (25.7-33.7); MCHC 35.2 g/dl (32.0-35.9); MEAN CELL VOLUME 84.7 fl (80-96); MEAN PLT VOLUME 8.7 fl (7.5-11.1); MONO % 10.7 % (3.8-10.2); PLATELET COUNT 322 K/MM3 (134-434); RBC 4.77 M/mm3 (4.00-5.60); RDW 13.3 % (11.9-15.9); WHITE BLOOD COUNT 9.2 K/mm3 (4.0-10.0)
[2019-04-20 06:20] LABS: ALBUMIN 3.8 g/dl (3.4-5.0); BILIRUBIN,TOTAL 0.6 mg/dL (0.2-1); CALCIUM 8.9 mg/dL (8.5-10.1); CREATININE 0.7 mg/dL (0.55-1.3); MAGNESIUM 2.2 mg/dL (1.8-2.4); POTASSIUM 3.2 mmol/L (3.5-5.1); TOT PROT 7.1 g/dl (6.4-8.2)
[2019-04-20] MEDS ORDERED: POTASSIUM CHLORIDE TABS 20 MEQ TABLET.ER (FP) PO ONE (07:21)
--- NOTE | 2019-04-20 07:39 | PN ---
Physical Exam: SUBJECTIVE: Patient seen and examined. No acute events overnight. Patient does not have any complaints. OBJECTIVE: Vital Signs Period Temp Pulse Resp BP Sys/Malcolm Pulse Ox Last 24 Hr 98.1 F-99.1 F 80-108 10-23 123-166/64-103 96-98 GENERAL: The patient is awake, alert, and fully oriented, in no acute distress. EYES: PERRL, extraocular movements intact, sclera anicteric, conjunctiva clear. No ptosis. LUNGS: Breath sounds equal, clear to auscultation bilaterally, no wheezes, no crackles, no accessory muscle use. HEART: Regular rate and rhythm, S1, S2 without murmur, rub or gallop. ABDOMEN: Soft, nontender, nondistended, normoactive bowel sounds, no guarding, no rebound, no hepatosplenomegaly, no masses. EXTREMITIES: 2+ pulses, warm, well-perfused, no edema. NEUROLOGICAL: Cranial nerves II through XII grossly intact. Normal speech, gait not observed. PSYCH: Normal mood, normal affect. SKIN: Warm, dry, normal turgor, no rashes or lesions noted Laboratory Results - last 24 hr 04/19/19 04/19/19 04/20/19 08:00 08:00 05:15 WBC 11.9 H 9.2 RBC 4.80 4.77 Hgb 14.1 14.2 Hct 40.8 40.4 MCV 84.8 84.7 MCH 29.3 29.8 MCHC 34.5 35.2 RDW 13.7 13.3 Plt Count 341 322 MPV 8.4 8.7 Absolute Neuts (auto) 8.2 H 5.6 Total Counted 100 Neutrophils % 68.5 61.0 Neutrophils % (Manual) 67.0 Lymphocytes % 22.8 27.2 Lymphocytes % (Manual) 23.0 D Monocytes % 8.1 10.7 H Monocytes % (Manual) 6 D Eosinophils % 0.3 0.7 D Basophils % 0.3 0.4 Myelocytes % (Man) 2 Nucleated RBC % 0 0 Platelet Estimate Adequate Sodium 133 L Potassium 3.2 L Chloride 98 Carbon Dioxide 27 Anion Gap 7 L BUN 8 Creatinine 0.7 Est GFR (CKD-EPI)AfAm 137.78 Est GFR (CKD-EPI)NonAf 118.88 Random Glucose 141 H Calcium 9.1 Phosphorus Magnesium 2.5 H Total Bilirubin 0.5 AST 8 L ALT 20 Alkaline Phosphatase 50 Total Protein 7.2 Albumin 3.9 04/20/19 05:15 WBC RBC Hgb Hct MCV MCH MCHC RDW Plt Count MPV Absolute Neuts (auto) Total Counted Neutrophils % Neutrophils % (Manual) Lymphocytes % Lymphocytes % (Manual) Monocytes % Monocytes % (Manual) Eosinophils % Basophils % Myelocytes % (Man) Nucleated RBC % Platelet Estimate Sodium 135 L Potassium 3.2 L Chloride 100 Carbon Dioxide 26 Anion Gap 10 BUN 9 Creatinine 0.7 Est GFR (CKD-EPI)AfAm 137.78 Est GFR (CKD-EPI)NonAf 118.88 Random Glucose 136 H Calcium 8.9 Phosphorus 4.0 Magnesium 2.2 Total Bilirubin 0.6 AST 6 L ALT 20 Alkaline Phosphatase 53 Total Protein 7.1 Albumin 3.8 Active Medications Generic Name Dose Route Start Last Admin Trade Name Freq PRN Reason Stop Dose Admin Acetaminophen 650 mg 04/19/19 06:27 04/20/19 02:56 Tylenol - PO 650 mg Q4H PRN Administration MILD PAIN Benzocaine/Menthol 1 each 04/18/19 21:07 04/19/19 06:58 Cepacol Lozenge - MM 1 each PRN PRN Administration SORE THROAT Sodium Chloride 1,000 mls @ 42 mls/hr 04/15/19 17:30 04/19/19 18:00 Normal Saline - IV 42 mls/hr ASDIR MEDINA Administration Lorazepam 2 mg 04/16/19 17:30 04/17/19 08:25 Ativan Injection - IVPUSH 2 mg TID PRN Administration seizures Melatonin 10 mg 04/15/19 08:22 04/19/19 21:36 Melatonin PO 10 mg HS PRN Administration sleep Phenol/Menthol 1 spray 04/12/19 12:40 04/12/19 13:26 Chloraseptic - MM 1 spray Q6HPO PRN Administration SORE THROAT Phenytoin Sodium 100 mg 04/15/19 22:00 04/20/19 05:56 Dilantin - PO Not Given TID MEDINA Prochlorperazine Maleate 10 mg 04/15/19 14:34 04/19/19 20:54 Compazine - PO 10 mg Q4H PRN Administration NAUSEA AND/OR VOMITING Valproate Sodium 1,000 mg 04/15/19 14:00 04/20/19 05:56 Depacon Injection - IVPB Not Given TID [facility] ASSESSMENT/PLAN: 38yo M with PMH of Opioid Dependence, Benzodiazepine Dependence, HLD brought to ICU for status epilepticus NEURO -Pseudoseizure v. Seizure disorder v. BZ withdrawal -Neurology consulted (Dr. Briones) -CT head normal -Seizure and fall precautions -DC AE meds except for Valproic acid per neurology -MRI ENDO -Hypokalemia, will replete -Trend lytes PULM -On room air -SpO2>90% -Aspiration precautions FEN -Replete electrolytes as needed -Regular diet PROPHYLAXIS -SCDs Dispo Seizure free for 24h. Stable for transfer to floors Visit type - Emergency Visit Emergency Visit: Yes ED Registration Date: 04/10/19 Care time: The patient presented to the Emergency Department on the above date and was hospitalized for further evaluation of their emergent condition. - New Patient This patient is new to me today: No - Critical Care Critical Care patient: Yes Total Critical Care Time (in minutes): 35 Critical Care Statement: The care of this patient involved high complexity decision making to prevent further life threatening deterioration of the patient 's condition and/or to evaluate & treat vital organ system(s) failure or risk of failure.
[2019-04-20] MEDS ORDERED: POTASSIUM CHLORIDE TABS 10 MEQ TABLET.ER (FP) PO ONE (07:40)
[2019-04-20] MEDS ORDERED: ONDANSETRON 4 MG/2 ML VIAL IVPUSH ONE (08:14)
[2019-04-20] MEDS ORDERED: ONDANSETRON 4 MG/2 ML VIAL ONE (08:19)
[2019-04-20] MEDS: PROCHLORPERAZINE MALEATE 5 MG TABLET PO PRN ×2 (10:13→18:37)
[2019-04-20] MEDS: KCL 10 MEQ IVPB 10 MEQ/100 ML INFUS.BAG IVPB SCH ×3 (10:14→12:12)
[2019-04-20 10:50] LABS: ANISOCYTOSIS 0; MACROCYTOSIS 0; PLATELET ESTIMATE NORMAL
--- NOTE | 2019-04-20 11:34 | PN ---
Teaching Attending Note Name of Resident: Alana Redding ATTENDING PHYSICIAN STATEMENT I saw and evaluated the patient. I reviewed the resident's note and discussed the case with the resident. I agree with the resident's findings and plan as documented. SUBJECTIVE: Patient seen and examined in the ICU. Awake and alert. Consideration of pseudoseizure over the weekend. No seizure activity since yesterday. OBJECTIVE: Intake & Output 04/17/19 04/18/19 04/19/19 04/20/19 23:59 23:59 23:59 23:59 Intake Total 1004 1658 1928 634 Output Total 700 1550 900 100 Balance 948 490 5046 534 Weight 205 lb 12.8 oz Last Vital Signs Temp Pulse Resp BP Pulse Ox 98.8 F 80 16 145/92 98 04/20/19 10:00 04/20/19 10:00 04/20/19 10:00 04/20/19 10:00 04/19/19 22:00 Active Medications Acetaminophen (Tylenol -) 650 mg PO Q4H PRN PRN Reason: MILD PAIN Last Admin: 04/20/19 02:56 Dose: 650 mg Benzocaine/Menthol (Cepacol Lozenge -) 1 each MM PRN PRN PRN Reason: SORE THROAT Last Admin: 04/19/19 06:58 Dose: 1 each Sodium Chloride (Normal Saline -) 1,000 mls @ 42 mls/hr IV ASDIR MEDINA Last Admin: 04/19/19 18:00 Dose: 42 mls/hr Lorazepam (Ativan Injection -) 2 mg IVPUSH TID PRN PRN Reason: seizures Last Admin: 04/17/19 08:25 Dose: 2 mg Melatonin (Melatonin) 10 mg PO HS PRN PRN Reason: sleep Last Admin: 04/19/19 21:36 Dose: 10 mg Phenol/Menthol (Chloraseptic -) 1 spray MM Q6HPO PRN PRN Reason: SORE THROAT Last Admin: 04/12/19 13:26 Dose: 1 spray Phenytoin Sodium (Dilantin -) 100 mg PO TID MEDINA Last Admin: 04/20/19 05:56 Dose: Not Given Prochlorperazine Maleate (Compazine -) 10 mg PO Q4H PRN PRN Reason: NAUSEA AND/OR VOMITING Last Admin: 04/20/19 10:13 Dose: 10 mg Valproate Sodium (Depacon Injection -) 1,000 mg IVPB TID MEDINA Last Admin: 04/20/19 05:56 Dose: Not Given Gen: NAD at rest Heart: RRR Lung: decreased breath sounds at the bases Abd: soft, nontender Ext: no edema Laboratory Results - last 24 hr 04/20/19 04/20/19 05:15 05:15 WBC 9.2 RBC 4.77 Hgb 14.2 Hct 40.4 MCV 84.7 MCH 29.8 MCHC 35.2 RDW 13.3 Plt Count 322 MPV 8.7 Absolute Neuts (auto) 5.6 Neutrophils % 61.0 Lymphocytes % 27.2 Monocytes % 10.7 H Eosinophils % 0.7 D Basophils % 0.4 Nucleated RBC % 0 Sodium 135 L Potassium 3.2 L Chloride 100 Carbon Dioxide 26 Anion Gap 10 BUN 9 Creatinine 0.7 Est GFR (CKD-EPI)AfAm 137.78 Est GFR (CKD-EPI)NonAf 118.88 Random Glucose 136 H Calcium 8.9 Phosphorus 4.0 Magnesium 2.2 Total Bilirubin 0.6 AST 6 L ALT 20 Alkaline Phosphatase 53 Total Protein 7.1 Albumin 3.8 ASSESSMENT AND PLAN: s/p Acute Respiratory Failure Status Epilepticus (?) component of Pseudoseizures Polysubstance Abuse HTN - AEDs per neuro - MRI brain - aspiration precautions - O2 to keep SpO2 >90% - DVT prophylaxis - Can be monitored on the floor Dr Rice
[2019-04-20] MEDS ORDERED: RANITIDINE HCL 150 MG TABLET (FP) PO ONE (12:42)
--- NOTE | 2019-04-20 13:11 | PN ---
Progress Note, Physician History of Present Illness: events noted in chart reviewed Multiple seizures over the weekend. Stop the medication and spoke to the nurse practitioner Still on the Depakote Seen today alert awake oriented sitting out of bed - Current Medication List Current Medications: Active Medications Acetaminophen (Tylenol -) 650 mg PO Q4H PRN PRN Reason: MILD PAIN Last Admin: 04/20/19 02:56 Dose: 650 mg Benzocaine/Menthol (Cepacol Lozenge -) 1 each MM PRN PRN PRN Reason: SORE THROAT Last Admin: 04/19/19 06:58 Dose: 1 each Sodium Chloride (Normal Saline -) 1,000 mls @ 42 mls/hr IV ASDIR MEDINA Last Admin: 04/19/19 18:00 Dose: 42 mls/hr Lorazepam (Ativan Injection -) 2 mg IVPUSH TID PRN PRN Reason: seizures Last Admin: 04/17/19 08:25 Dose: 2 mg Melatonin (Melatonin) 10 mg PO HS PRN PRN Reason: sleep Last Admin: 04/19/19 21:36 Dose: 10 mg Phenol/Menthol (Chloraseptic -) 1 spray MM Q6HPO PRN PRN Reason: SORE THROAT Last Admin: 04/12/19 13:26 Dose: 1 spray Phenytoin Sodium (Dilantin -) 100 mg PO TID [facility] Last Admin: 04/20/19 05:56 Dose: Not Given Prochlorperazine Maleate (Compazine -) 10 mg PO Q4H PRN PRN Reason: NAUSEA AND/OR VOMITING Last Admin: 04/20/19 10:13 Dose: 10 mg Valproate Sodium (Depacon Injection -) 1,000 mg IVPB TID [facility] Last Admin: 04/20/19 05:56 Dose: Not Given - Objective Vital Signs: Vital Signs Temperature 98.8 F 04/20/19 10:00 Pulse Rate 82 04/20/19 12:00 Respiratory Rate 16 04/20/19 12:00 Blood Pressure 145/92 04/20/19 10:00 O2 Sat by Pulse Oximetry (%) 98 04/19/19 22:00 Constitutional: Yes: Well Nourished Eyes: Yes: WNL Neurological: Yes: Alert, Oriented, Babinski negative ...Motor Strength: WNL Labs: CBC, BMP 04/20/19 05:15 05/20/19 05:15 Problem List - Problems (1) Seizure Assessment/Plan: continue Depakote the same No Versed or propofol Psych evaluation Code(s): R56.9 - UNSPECIFIED CONVULSIONS
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
[2019-04-20] MEDS ORDERED: BENZOCAINE/MENTH/CETYLPYRD CL 1 EACH LOZENGE MM PRN (17:58)
[2019-04-20] MEDS ORDERED: PT OWN MED DRAWER 7, Y5N ONE (21:51)
[2019-04-20] MEDS: MELATONIN 5 MG TABLETS PO PRN (22:07)
[2019-04-21] MEDS ORDERED: LORazepam 2 MG/ML SDV VIAL IVPUSH ONE (03:23)
--- NOTE | 2019-04-21 03:43 | RAPID ---
Physical Examination Vital Signs: Vital Signs Temperature 98.8 F 04/20/19 22:00 Pulse Rate 90 04/20/19 22:00 Respiratory Rate 16 04/20/19 22:00 Blood Pressure 145/97 04/20/19 22:00 O2 Sat by Pulse Oximetry (%) 98 04/19/19 22:00 Findings/Remarks: 3:04 Rapid called overhead and patient found to be seizing. Per last neuro note versed and propofol to not be given. Patient received his dose of depakote today. We gene his lactate and prolactin. After about 15-20 minutes seizure broke on its own, he did not have incontinence. Lactate elevated at 3. Past prolactins have been elevated in the 40, consider further workup. Will likely need continuous EEG monitoring. 3:52 A second rapid was called, patient had gotten up and fallen. Head CT and Cervical CT done, f/u read. Labs: CBC, BMP 04/20/19 05:15 04/20/19 05:15
[2019-04-21] MEDS ORDERED: SODIUM CHLORIDE 1,000 ML IV STA (04:17)
[2019-04-21] MEDS ORDERED: ACETAMINOPHEN 1000 MG/100 ML VIAL (NON FORMULARY) IVPB ONE (05:01)
[2019-04-21] MEDS: VALPROATE SODIUM 500 MG/5 ML VIAL IVPB SCH ×4 (06:24→21:05)
[2019-04-21 08:08] LABS: BASO % 0.5 % (0-2.0); EOS % 0.9 % (0-4.5); HEMATOCRIT 43.2 % (35.4-49); LYMPH % 22.6 % (8-40); MCHC 34.8 g/dl (32.0-35.9); MEAN CELL VOLUME 86.2 fl (80-96); MEAN PLT VOLUME 8.6 fl (7.5-11.1); MONO % 9.7 % (3.8-10.2); NEUT % 66.3 % (42.8-82.8); PLATELET COUNT 331 K/MM3 (134-434); RBC 5.02 M/mm3 (4.00-5.60); RDW 13.7 % (11.9-15.9); WHITE BLOOD COUNT 10.9 K/mm3 (4.0-10.0)
[2019-04-21 08:24] LABS: ALBUMIN 4.2 g/dl (3.4-5.0); BILIRUBIN,TOTAL 0.5 mg/dL (0.2-1); CALCIUM 8.9 mg/dL (8.5-10.1); CREATININE 0.8 mg/dL (0.55-1.3); MAGNESIUM 2.2 mg/dL (1.8-2.4); PHOSPHOROUS 4.1 mg/dL (2.5-4.9); POTASSIUM 3.4 mmol/L (3.5-5.1); TOT PROT 7.7 g/dl (6.4-8.2)
[2019-04-21] MEDS ORDERED: POTASSIUM CHLORIDE TABS 20 MEQ TABLET.ER (FP) PO ONE (08:56)
[2019-04-21 11:44] LABS: ANISOCYTOSIS 0; MACROCYTOSIS 0; PLATELET ESTIMATE NORMAL
[2019-04-21 14:46] VITALS: BMI 28.5
[2019-04-21] MEDS ORDERED: PT OWN MED DRAWER 7, Y5N ONE (14:48)
[2019-04-21] MEDS ORDERED: ONDANSETRON 4 MG/2 ML VIAL IVPB ONE (15:39)
[2019-04-21] MEDS: PROCHLORPERAZINE MALEATE 5 MG TABLET PO PRN (16:08)
--- NOTE | 2019-04-21 19:01 | PN ---
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 Patient went to [facility] on 03/31/2019 for detox. He presented to the ED from [facility] for seizures witnessed by staff. Prolonged hospital stay secondary to multiple seizures, intubated x 2. 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 Per neurology, continue the Valporic acid. Pt anxious to go back to [facility] - Current Medication List Current Medications: Active Medications Acetaminophen (Tylenol -) 650 mg PO Q4H PRN PRN Reason: MILD PAIN Last Admin: 04/20/19 22:07 Dose: 650 mg Benzocaine/Menthol (Cepacol Lozenge -) 1 each MM PRN PRN PRN Reason: SORE THROAT Melatonin (Melatonin) 10 mg PO HS PRN PRN Reason: sleep Last Admin: 04/20/19 22:07 Dose: 10 mg Prochlorperazine Maleate (Compazine -) 10 mg PO Q4H PRN PRN Reason: NAUSEA AND/OR VOMITING Last Admin: 04/21/19 16:08 Dose: 10 mg Valproate Sodium (Depacon Injection -) 1,000 mg IVPB TID [facility]INA Last Admin: 04/21/19 16:10 Dose: 1,000 mg - Objective Vital Signs: Vital Signs Temperature 98 F 04/21/19 14:45 Pulse Rate 90 04/21/19 15:43 Respiratory Rate 20 04/21/19 15:43 Blood Pressure 139/89 04/21/19 15:43 O2 Sat by Pulse Oximetry (%) 98 04/21/19 09:03 Constitutional: Yes: Well Nourished, No Distress, Calm Eyes: Yes: WNL, Conjunctiva Clear HENT: Yes: WNL, Atraumatic, Normocephalic Neck: Yes: WNL, Supple, Trachea Midline Cardiovascular: Yes: WNL, Regular Rate and Rhythm Respiratory: Yes: WNL, Regular, CTA Bilaterally Gastrointestinal: Yes: WNL, Normal Bowel Sounds, Soft ...Rectal Exam: Yes: Deferred Genitourinary: Yes: WNL Breast(s): Yes: WNL Musculoskeletal: Yes: WNL Extremities: Yes: WNL Edema: No Peripheral Pulses WNL: Yes Integumentary: Yes: WNL Neurological: Yes: WNL, Alert, Oriented ...Motor Strength: WNL Psychiatric: Yes: WNL, Alert, Oriented Labs: CBC, BMP 04/21/19 07:16 04/21/19 07:16 - ....Imaging Cat Scan: Report Reviewed (no acute intracranial hemmorhage, edema) Problem List - Problems (1) HTN (hypertension) Assessment/Plan: to previous BP medications BP high this afternoon then normotensive continue to monitor BP and initiate meds if continue to be high Code(s): I10 - ESSENTIAL (PRIMARY) HYPERTENSION Qualifiers: Hypertension type: unspecified Qualified Code(s): I10 - Essential (primary ) hypertension (2) Seizure Assessment/Plan: Followed by neurology, neuro note reviewed. stopping all anti seizure meds except for depakote. however patient now refusing to take any anti seizure medications, including depakote. Maintain on seizure precautions. EEG reviewed. Seen and evaluated by psyche, notes reviewed. patient refusing anti depressants. Code(s): R56.9 - UNSPECIFIED CONVULSIONS (3) Falls frequently Code(s): R29.6 - REPEATED FALLS (4) Respiratory failure Code(s): J96.90 - RESPIRATORY FAILURE, UNSP, UNSP W HYPOXIA OR HYPERCAPNIA Impression/Plan Impression/Plan: (1) Seizure Assessment/Plan: (1) Seizure Assessment/Plan: Followed by neurology, neuro note reviewed. stopping all anti seizure meds except for depakote. however patient now refusing to take any anti seizure medications, including depakote. Maintain on seizure precautions. EEG reviewed. Seen and evaluated by psyche, notes reviewed. patient refusing anti depressants. Further workup per neurology. awaiting neuro clearance before discharging patient back to [facility]. Code(s): R56.9 - UNSPECIFIED CONVULSIONS (2) Respiratory failure Assessment/Plan: s/p intubation. On room air with stable saturations. Code(s): J96.90 - RESPIRATORY FAILURE, UNSP, UNSP W HYPOXIA OR HYPERCAPNIA (3) HTN (hypertension) Assessment/Plan: Controlled. continue to monitor. Code(s): I10 - ESSENTIAL (PRIMARY) HYPERTENSION (4) Falls frequently Assessment/Plan: multiple falls during hospital stay and with position changes. Check orthostatics as patient is now more stable, and has been seizure free since yesterday Head CT negative. Cervical spine CT negative maintain fall precautions Code(s): R29.6 - REPEATED FALLS Further workup per neurology. awaiting neuro clearance before discharging patient back to [facility]. Code(s): R56.9 - UNSPECIFIED CONVULSIONS (2) Respiratory failure Assessment/Plan: s/p intubation. On room air with stable saturations. Code(s): J96.90 - RESPIRATORY FAILURE, UNSP, UNSP W HYPOXIA OR HYPERCAPNIA (3) HTN (hypertension) Assessment/Plan: Controlled. continue to monitor. Code(s): I10 - ESSENTIAL (PRIMARY) HYPERTENSION (4) Falls frequently Assessment/Plan: multiple falls during hospital stay and with position changes. Check orthostatics as patient is now more stable, and has been seizure free since yesterday Head CT negative. Cervical spine CT negative maintain fall precautions Code(s): R29.6 - REPEATED FALLS Visit type - Emergency Visit Emergency Visit: Yes ED Registration Date: 04/10/19 Care time: The patient presented to the Emergency Department on the above date and was hospitalized for further evaluation of their emergent condition. - New Patient This patient is new to me today: Yes Date on this admission: 04/21/19 - Critical Care Critical Care patient: No - Discharge Referral Referred to [facility] Med P.C.: No
[2019-04-21] MEDS: ACETAMINOPHEN 325 MG TABLET (FP) PO PRN (20:48)
[2019-04-21] MEDS: MELATONIN 5 MG TABLETS PO PRN (21:11)
[2019-04-21] MEDS ORDERED: IBUPROFEN 400 MG TABLET (FP) PO ONE (23:46)
--- NOTE | 2019-04-22 01:50 | PN ---
Progress Note (short form) - Note Progress Note: Episodic Note 04/21@approx.11:30pm Called by RN patient would like to speak with medical staff team reporting 10/ 10 lower back pain which was not relieved with tylenol. Patient was seen and examined at bedside. He has a sitter at bedside and he is persistently requesting pain medications (narcotics) He reported he does not want tylenol or ibuprofen because it does not help him. He was manipulative with me and was insisting to get narcotic pain medications tonight. As per nursing staff it was verbalized to me that the patient was speaking to the sitter at bedside in Green[place]ic that he was faking his seizures yesterday to see if he will be given narcotic medication. Patient was explained he can only get tylenol or a dose of ibuprofen for his back pain . He was pleasant but manipulative with me. He was explained that he will be going back to detox once he is medically cleared by Neurology. Visit type - Emergency Visit Emergency Visit: No - New Patient This patient is new to me today: Yes Date on this admission: 04/22/19 - Critical Care Critical Care patient: No
[2019-04-22] MEDS ORDERED: PT OWN MED DRAWER 7, Y5N ONE (07:56)
[2019-04-22] MEDS: VALPROATE SODIUM 500 MG/5 ML VIAL IVPB SCH (08:00)
--- NOTE | 2019-04-22 08:01 | PN ---
Progress Note (short form) - Note Progress Note: Patient refusing to take medication unless with discharge him to [facility] to complete his detox/rehab. SPoke to patient at length and agreed to take meds. No seizure activity for >24H so medical cleared to return back. Spoke to early childhood specialist Chuy Zelaya and providing there is a bed he may return Contacted [facility] to arrange transport Problem List - Problems (1) HTN (hypertension) Code(s): I10 - ESSENTIAL (PRIMARY) HYPERTENSION Qualifiers: Hypertension type: unspecified Qualified Code(s): I10 - Essential (primary ) hypertension (2) Seizure Code(s): R56.9 - UNSPECIFIED CONVULSIONS (3) Falls frequently Code(s): R29.6 - REPEATED FALLS (4) Respiratory failure Code(s): J96.90 - RESPIRATORY FAILURE, UNSP, UNSP W HYPOXIA OR HYPERCAPNIA Visit type - Emergency Visit Emergency Visit: Yes ED Registration Date: 04/10/19 Care time: The patient presented to the Emergency Department on the above date and was hospitalized for further evaluation of their emergent condition. - New Patient This patient is new to me today: No - Critical Care Critical Care patient: No - Discharge Referral Referred to [facility] Med P.C.: No
[2019-04-22] MEDS: IBUPROFEN 400 MG TABLET (FP) PO PRN ×2 (09:20→14:57)
[2019-04-22 14:28] VITALS: BP 129/91; PULSE 97; TEMP 98.1
[2019-04-22] MEDS ORDERED: DIVALPROEX SODIUM 500 MG TABLET E.C. PO SCH (22:00)
== END 2019-04-22 16:39 | disposition other institution (70) | DRG 100 ==
LOC: JER 13:36 → JERBED 17:20 → J4W 18:07 → JICU 23:46 → OBSVTOIN 04-10 10:56 → J7W 04-20 18:43
PROVIDERS: ADMIT Internal Medicine; ATTEND Nurse Practitioner Acute Care
PROC: 0BH17EZ Insertion of Endotracheal Airway into Trachea, Via Natural or Artificial Opening (ICD-10-PCS; principal; 2019-04-09)
PROC: 5A1945Z Respiratory Ventilation, 24-96 Consecutive Hours (ICD-10-PCS; 2019-04-09)
PROC: 0CHY7BZ Insertion of Airway into Mouth and Throat, Via Natural or Artificial Opening (ICD-10-PCS; 2019-04-13)
PROC: 5A1945Z Respiratory Ventilation, 24-96 Consecutive Hours (ICD-10-PCS; 2019-04-13)
DX: G40.409 Other generalized epilepsy and epileptic syndromes, not intractable, without status epilepticus (principal); J96.00 Acute respiratory failure, unspecified whether with hypoxia or hypercapnia; F13.230 Sedative, hypnotic or anxiolytic dependence with withdrawal, uncomplicated; F11.23 Opioid dependence with withdrawal; F32.9 Major depressive disorder, single episode, unspecified; I10 Essential (primary) hypertension; F41.9 Anxiety disorder, unspecified; G47.00 Insomnia, unspecified; F17.210 Nicotine dependence, cigarettes, uncomplicated; E66.9 Obesity, unspecified; Z68.28 Body mass index [BMI] 28.0-28.9, adult; F10.20 Alcohol dependence, uncomplicated; R51 Headache; E87.6 Hypokalemia; S29.8XXA Other specified injuries of thorax, initial encounter; W01.0XXA Fall on same level from slipping, tripping and stumbling without subsequent striking against object, initial encounter; Y93.89 Activity, other specified; Y92.231 Patient bathroom in hospital as the place of occurrence of the external cause; Y99.8 Other external cause status; R29.6 Repeated falls
CPT/HCPCS: 31500; 36415; 36600; 70450-TC; 70551-TC; 71045-TC-FY; 72125-TC; 73523-TC-FY; 80048; 80053; 80164; 80177; 80185; 80307; 81003; 82550; 82553; 82803; 82962; 83605; 83735; 84100; 84146; 84443; 85025; 87040; 87186; 93005; 93010; 94002; 95816; 97116-GP; 97161-GP; 99283-25; G0378; J0131; J1644; J7030

== ENCOUNTER 2024-04-08 12:58 | Inpatient (IN) | payer OTHER ==
[2024-04-08 13:49] VITALS: BMI 31.1
[2024-04-08] MEDS ORDERED: MAGNESIUM HYDROX 2400MG/30ML ORAL SUSPENSION 30 ML CUP PO PRN (15:10)
[2024-04-08] MEDS ORDERED: NALOXONE HCL (KLOXXADO) 8 MG SPRAY NS PRN (15:10)
[2024-04-08] MEDS ORDERED: hydrOXYzine PAMOATE 25 MG CAPSULE (FP) PO PRN (15:10)
[2024-04-08] MEDS ORDERED: guaiFENesin 600 MG TABLET.ER (FP) PO PRN (15:10)
[2024-04-08] MEDS ORDERED: BENZONATATE 200 MG CAPSULE PO PRN (15:10)
[2024-04-08] MEDS ORDERED: NALOXONE HCL 0.4 MG/ML VIAL IM PRN (15:10)
[2024-04-08] MEDS ORDERED: LOPERAMIDE HCL 2 MG CAPSULE PO PRN (15:10)
[2024-04-08] MEDS ORDERED: BENZOCAINE/MENTHOL (CHLORASEPTIC ) LOZENGE MM PRN (15:10)
[2024-04-08] MEDS ORDERED: POLYETHYLENE GLYCOL (HEALTHYLAX) 3350 17 GM PACKET PO PRN (15:10)
[2024-04-08] MEDS ORDERED: IBUPROFEN 400 MG TABLET (FP) PO PRN (15:10)
[2024-04-08] MEDS: TUBERCULIN PPD 5 TU/0.1ML SYRINGE (IN PATIENT USE ONLY) ID ONE (19:48)
[2024-04-08] MEDS: MELATONIN 5 MG TABLETS PO SCH (22:47)
[2024-04-08] MEDS: ATORVASTATIN CA 20 MG TABLET (FP) PO SCH (22:47)
[2024-04-08] MEDS: THIAMINE 100 MG TABLET PO SCH (22:48)
[2024-04-09] MEDS: IBUPROFEN 600 MG TABLET (FP) PO PRN (10:00)
[2024-04-09] MEDS: PRENATAL VITAMINS W/ FOLIC ACID TABLET (FP) PO SCH (10:01)
[2024-04-09] MEDS ORDERED: NICOTINE POLACRILEX 4 MG GUM BUC PRN (10:41)
[2024-04-09] MEDS: ONDANSETRON *ODT* 4 MG TABLET SL ONE (11:00)
[2024-04-09 11:39] LABS: HEMATOCRIT 40.5 % (35.4-49); HEMOGLOBIN 14.4 GM/dL (11.7-16.9); MCHC 35.5 g/dl (32.0-35.9); MEAN CELL VOLUME 84.5 fl (80-96); MEAN PLT VOLUME 9.1 fl (7.5-11.1); PLATELET COUNT 325 10^3/uL (134-434); RDW 13.3 % (11.9-15.9); WHITE BLOOD COUNT 9.8 K/mm3 (4.0-10.0)
[2024-04-09 11:44] LABS: POTASSIUM 3.8 mmol/L (3.5-5.1)
[2024-04-09 11:50] LABS: BLOOD UREA NITROGEN 9.4 mg/dL (7-18)
[2024-04-09 11:51] LABS: ALBUMIN 3.8 g/dl (3.4-5.0)
[2024-04-09 11:53] LABS: CREATININE 0.9 mg/dL (0.55-1.3)
[2024-04-09 11:54] LABS: BILIRUBIN,TOTAL 1.1 mg/dL (0.2-1)
[2024-04-09 12:13] LABS: SYPHILIS W/ RPR CONF NON-REACTIVE (NONREACTIVE)
[2024-04-09] MEDS: MAG HYDROX/AL HYDROX/SIMETH 30 ML UNIT-DOSE CUP PO PRN (16:38)
[2024-04-09] MEDS: ACETAMINOPHEN 325 MG TABLET (FP) PO PRN (20:21)
[2024-04-09 21:41] LABS: HEPATITIS B SURFACE AG CONFIRM CONFIRMED (NONREACTIVE)
[2024-04-09] MEDS: cloNIDine HCL 0.1 MG TABLET PO PRN (22:04)
[2024-04-10] MEDS: methaDONE HCL 10 MG TABLET (FOR DETOX USE ONLY) PO ONE (10:10)
[2024-04-10] MEDS ORDERED: ONDANSETRON 4 MG TABLET PO PRN (10:53)
[2024-04-10] MEDS: ONDANSETRON *ODT* 4 MG TABLET SL PRN (11:39)
[2024-04-10 17:32] LABS: PH,URINE 5.5 (5.0-8.0); URINE APPEARANCE TURBID; URINE BILIRUBIN 1+ (NEGATIVE); URINE COLOR DK YELLOW; URINE GLUCOSE (UA) NEGATIVE (NEGATIVE); URINE KETONE 1+ (NEGATIVE); URINE LEUK ESTERASE NEGATIVE (NEGATIVE); URINE NITRITE NEGATIVE (NEGATIVE); URINE PROTEIN TRACE (NEGATIVE)
[2024-04-11 09:50] VITALS: BP 132/80; PULSE 75; RESP 16; TEMP 97.7
== END 2024-04-11 10:09 | disposition home or self-care (01) | DRG 773 ==
LOC: YASAS 12:58 → Y6N 16:43
PROVIDERS: ADMIT Allergy & Immunology; ATTEND Surgery
PROC: HZ2ZZZZ Detoxification Services for Substance Abuse Treatment (ICD-10-PCS; principal; 2024-04-08)
DX: F11.23 Opioid dependence with withdrawal (principal); I10 Essential (primary) hypertension; E78.5 Hyperlipidemia, unspecified; G40.909 Epilepsy, unspecified, not intractable, without status epilepticus; R73.9 Hyperglycemia, unspecified
CPT/HCPCS: 36415; 80053; 80305; 80307; 81003; 82947; 83036; 85027; 86780; 86803; 87340; 87517; 93005; 93010; Q0162